=== PATIENT | female | born 1945 | race Caucasian/White ===

== ENCOUNTER 2021-03-30 14:21 | Outpatient (REF) | payer MEDICARE, MEDICAID, SELFPAY ==
--- NOTE | ~2021-03-30 | FL_ITS ---
EXAMINATION: X-RAY MODIFIED BARIUM SWALLOW CLINICAL INFORMATION: Dysphagia COMPARISON: None TECHNIQUE: Modified barium study FL/FL barium swallow modified FINDINGS/IMPRESSION: Fluoroscopy provided for modified barium swallow study performed by the speech pathologist. There is aspiration noted when the patient swallowed thin liquid. See speech pathology report for further details. FLUOROSCOPY TIME: 2.4 minutes DOSE AREA PRODUCT: 8.0 uGy-m2 (microgray-meter squared)
--- NOTE | 2021-03-30 17:10 | MHC.SLORD ---
Speech Language Pathology Order Status: MBSS completed this date. Evidence of aspiration with honey thick liquid. No aspiration or penetration with pureed solid. Recommend consult with G.I./Nutrition to determine candidacy for G-tube, with partial PO pureed solids (NDD1)/pudding thick liquids. RETAIL VISUAL MERCHANDISER called and spoke with RN from unit where patient resides at [facility]. RETAIL VISUAL MERCHANDISER notified RN of these results and recommendations. Report to be faxed to [facility].
--- NOTE | 2021-03-31 14:40 | MHC.SL.IMP ---
Date of Plan of Treatment: 03/30/21 Onset of Symptoms/Illness: 03/30/21 Date Treatment Started: 03/30/21 Admitting Diagnosis: Primary (admitting) Diagnosis: Paranoid schizophrenia Comorbidities: Oropharyngeal phase dysphagia Benign prostatic hyperplasia with lower urinary tract symptoms Unspecified AFIB Primary osteoarthritis GERD without esophagitis Dysarthria and anarthria Hypothyroidism Atherosclerotic heart disease of [place] coronary artery without angina pectoris Bradycardia Other disorders of plasma-protein metabolism Retention of urine Tobacco use Disturbances of salivary secretion Nonexudative age-related macular degeneration Unspecified glaucoma Mixed hyperlipidemia Vitamin D deficiency Other pancytopenia Personal history of sex reassignment Personal history of transient ischemic attack (TIA) and cerebral infarction without residual deficits Functional urinary incontinence Allergic rhinitis Constipation Type 2 diabetes mellitus without complications Other migraine not intractable without status migrainosus Essential hypertension Angina pectoris CVA 2012 Primary Speech & Language Diagnosis: R13.12 Oropharyngeal Phase Dysphagia Secondary Speech & Language Diagnosis: R41.841 Cognitive communication disorder Reason for Today's Visit: 81697 Modified Barium Swallow Study Pre-evaluation Dietary Consistencies: Pureed (NDD1) Pre-evaluation Liquid Consistency: Honey Thick Pre-evaluation Medication Administration: Crushed with Puree Medical History: Modified Barium Swallow Study Fluoroscopic Evaluation of Swallowing Function CPT Code 09242 Evaluation Year: 2020 Reason for Study: Patient displays overt s/s of aspiration. Referring Physician: Kandy Sarmiento MD Evaluating Clinician: Heather Delatorre M.A., CCC-FOOD SAFETY FIELD SPECIALIST Study Number: 1 Patient Name: Renea Polanco Status: Outpatient, Wheelchair Age: 75 Gender: Female MEDICAL HISTORY: Primary (admitting) Diagnosis: Paranoid schizophrenia Comorbidities: Oropharyngeal phase dysphagia Benign prostatic hyperplasia with lower urinary tract symptoms Unspecified AFIB Primary osteoarthritis GERD without esophagitis Dysarthria and anarthria Hypothyroidism Atherosclerotic heart disease of [place] coronary artery without angina pectoris Bradycardia Other disorders of plasma-protein metabolism Retention of urine Tobacco use Disturbances of salivary secretion Nonexudative age-related macular degeneration Unspecified glaucoma Mixed hyperlipidemia Vitamin D deficiency Other pancytopenia Personal history of sex reassignment Personal history of transient ischemic attack (TIA) and cerebral infarction without residual deficits Functional urinary incontinence Allergic rhinitis Constipation Type 2 diabetes mellitus without complications Other migraine not intractable without status migrainosus Essential hypertension Angina pectoris CVA 2012 Current (pre-evaluation) Intake/Diet: Route: PO Diet Grade: Puree Liquid Consistencies: Honey as reported per staff; [place] per documentation from [facility] Pre-Study Functional Oral Intake Scale (FOIS): 5- Total oral intake of multiple consistencies requiring special preparation Pain: None reported at time of study SUBJECTIVE: Patient is a 75 year old transgendered female who comes from [facility], where she is a snf care resident. Patient arrived in a wheelchair, accompanied by a staff member from [facility]. Per staff member, patient has significant difficulty swallowing. Staff member describes coughing on solids and liquids. Onset of dysphagia is unknown to staff member. Patient has extensive medical history, which includes CVA in 2013, paranoid schizophrenia, and severe oral phase dysphagia with known silent aspiration. Patient is currently on pureed solids and nectar thick liquids per paper documentation from [facility]. Staff member who had accompanied patient to this exam reported patient?s diet textures as pureed solids and honey thick liquids. Kandy Sarmiento MD is her attending provider. Oral Motor Exam Oral-Facial Teeth Characteristics: Edentulous Oral-Facial Teeth Miscellaneous Observation: Patient did not follow commands for oral [facility] exam. Tongue Size: Normal Food and Liquid Trials: Oral Impairment: Lip Closure: 4=Escape progressing to mid-chin. Oral Impairment: Tongue Control During Bolus Hold: 3=Posterior escape of greater than half of bolus Oral Impairment: Bolus Preparation/Mastication: Did not test Oral Impairment: Bolus Transport/Lingual Motion: 3=Repetitive/disorganized tongue motion Oral Impairment: Oral Residue: 2=Residue collection on oral structures Oral Impairment:Initiation of Pharyngeal Swallow: 3=Bolus head in pyriforms Pharyngeal Impairment: Soft Palate Elevation: 0=No bolus between soft palate (SP)/pharyngeal wall (PW) Pharyngeal Impairment: Laryngeal Elevation: 2=Minimal superior movement of thyroid cartilage (see description) Pharyngeal Impairment: Anterior Hyoid Excursion: 2=No anterior movement Pharyngeal Impairment: Epiglottic Movement: 1=Partial inversion Pharyngeal Impairment: Laryngeal Vestibular Closure:: 1=Incomplete: narrow column air/contrast in laryngeal vestibule Pharyngeal Impairment: Pharyngeal Stripping Wave: 2=Absent Pharyngeal Impairment: Pharyngeal Contraction: Did not test Pharyngeal Impairment: Pharyngoesophageal Segment Openin=Partial distention/partial duration: partial obstruction of flow Pharyngeal Impairment: Tongue Base (TB) Retraction: 3=Wide column of contrast/air between TB and posterior PW Pharyngeal Impairment: Pharyngeal Residue: 2=Collection of residue within or on pharyngeal structures Pharyngeal Impairment: Esophageal Clearance Upright Position: Did not test Impressions and Recommendations Clinical Observations: OBJECTIVE: Time-out: performed at 02:45 Evaluation Start: 02:30; Stop: 02:40 Patient Positioning: Seated 70-90 degrees Viewing Planes: LATERAL ONLY Contrast: MBSImP? Standardized Protocol using commercially prepared, standardized Barium viscosities, including: Varibar? THIN HONEY (40% w/v, <800-1800 cps) MBSImP ID: [id number] Results: Lip closure for intraoral bolus containment resulted in bolus escape beyond mid-chin. Tongue control during bolus hold allowed posterior escape of greater than half of the bolus. Bolus preparation and mastication received the highest impairment score; solid not given due to patient safety concerns related to oral impairment. Bolus transport/lingual motion was with repetitive/disorganized motion of the tongue. Oral residue was a collection on oral structures. Initiation of the pharyngeal swallow occurred when the bolus head was in the pyriform sinuses. Soft palate elevation resulted in no bolus between the soft palate and the pharyngeal wall. Laryngeal elevation was incomplete, as indicated through minimal superior movement of the thyroid cartilage with minimal approximation of the arytenoids to the epiglottic petiole. Anterior hyoid excursion demonstrated no movement. Epiglottic movement resulted in partial inversion. Laryngeal vestibular closure was incomplete, with a narrow column of air/contrast noted within the laryngeal vestibule at the height of the swallow. Pharyngeal stripping wave was absent. Pharyngeal contraction could not be determined due to logistical reasons not related to physiologic impairment. Pharyngoesophageal segment opening demonstrated partial distension/partial duration, with partial obstruction of bolus flow. Tongue base retraction allowed a wide column of contrast or air between the retracted tongue base and the posterior pharyngeal wall. Pharyngeal residue was a collection of residue within or on pharyngeal structures. Esophageal clearance in the upright position could not be assessed due to logistical reasons not related to physiologic impairment. Oral Impairment Score: 18 Pharyngeal Impairment Score: 14 (absence of score, component 13) Esophageal Impairment Score: --- (absence of score, component 17) Laryngeal Penetration and Aspiration: Aspiration was observed in today's study. Honey-thick Contrast entered the airway, passed below the vocal folds, and was not ejected from the trachea despite effort. Honey-thick Contrast entered the airway, passed below the vocal folds, and no effort was made to eject. ASSESSMENT: Clinician Assessment: This exam was conducted by a multidisciplinary team, which included radiologist, licensed chemical spray technician, speech-language pathologist, and speech-language pathology student liaison officer clinician. Patient was seated at optimal 90 degree position in chair for lateral view only. Patient was fed with 1:1 assistance. She trialed the following liquid and solid consistencies: -teaspoon sip honey thick liquid -pureed solid (mixture applesauce with barium paste) Patient displayed PROFOUND oropharyngeal phase dysphagia, characterized by significant impairments in the oral phase and pharyngeal phase: ORAL PHASE: -Significantly weak lip closure, resulting in anterior escape of bolus progressing beyond mid-chin. Patient exhibited difficulty forming and managing a bolus. -Premature posterior escape of greater than 50% of bolus prior to initiation of pharyngeal swallow trigger. Both solid and liquid escaped posteriorly and collected in valleculae and pyriforms prior to swallow trigger. -Patient was given small bites of applesauce. More advanced solids were withheld for patient safety due to patient?s edentulous state, significant impairments in oral phase, and inability to follow directions. -Repetitive and disorganized posterior tongue movement/ tongue pumping -Mild to moderate residue on tongue and on floor of mouth with honey thick liquid and pureed solid -Delayed pharyngeal swallow trigger when bolus head reached pyriform sinuses PHARYNGEAL PHASE: -No bolus between soft palate and pharyngeal wall -Minimal laryngeal elevation with no anterior hyoid movement and partial epiglottic inversion. -Incomplete laryngeal vestibular closure resulting in aspiration -Absent pharyngeal stripping wave, contributing to pharyngeal retention -Partial distention/ partial duration/partial obstruction of flow through pharyngoesophageal segment opening -Reduced tongue base retraction -Moderate pharyngeal retention Patient was given teaspoon sip of honey thick liquid. Evidence of silent aspiration during the swallow. Contrast entered the airway and passed below the vocal folds with no effort made to eject material. Moderate retention in the valleculae and pyriform sinuses with honey thick liquid. Double swallow reduced pharyngeal retention, but with aspiration on residual after the swallow. Patient demonstrated spontaneous cough, which was not effective in clearing material from airway. Patient was given teaspoon bites of pureed solid. No evidence of aspiration or penetration. Continue to note moderate residue in the valleculae and pyriform sinuses with pureed solids. Patient leaned her head forward during the swallow. This incidental chin tuck posture resulted in more effective pharyngeal clearance. The following compensatory strategies have not been used until today's study, but when employed, improved swallowing function: Chin Tuck decreased Pharyngeal Residue The following compensatory strategies appear to have had a negative impact on swallowing function: Honey-thick Liquid increased Aspiration Liquid Intake Recommendation: Pudding Thick Liquid Intake Strategies: Small Sips No Straws Liquids by Teaspoon Only Dietary Recommendations: Pureed (NDD1) Medication Administration: Crushed with Puree Compensatory Strategies Recommended: Sitting Upright (90 deg) Chin Tuck Double Swallow No Straw Liquids from Spoon Small Bites and Sips Rate of Ingestion Change Oral Check Supervision during eating and or drinking: Total Assistance Recommended Treatments: Compens. Strategy Educat. Recommendation for Speech Therapy: Speech Therapy through [facility] Text Comment: Frequency/Duration: Daily M-F Date Range for Service Requested: Timeline to reassess: PLAN: Intake Recommendations: Route: Partial PO/Partial Alternate Diet Grade: Puree Liquid Consistencies: No Liquids Post-Study Functional Oral Intake Scale (FOIS): 2- dependent with minimal/inconsistent oral intake Patient demonstrates profound oropharyngeal phase dysphagia, characterized by premature posterior escape of bolus, tongue pumping behavior, delayed pharyngeal swallow trigger, minimal laryngeal elevation, and moderate pharyngeal retention. This exam revealed evidence of aspiration during the swallow and after the swallow with honey thick liquid. No evidence of aspiration or penetration with pureed solid. Moderate residue in the valleculae and pyriforms with both consistencies. Double swallow reduced some residue, and chin tuck posture was even more effective in clearing residue when trialing pureed solid. Recommend single consistency PUREED solid/ PUDDING THICK liquid with pills CRUSHED in PUREE. With single consistency, concern is for patient to receive adequate nutrition and hydration. Additionally patient is at high aspiration risk. For that reason, patient is recommended consultations with a fibre composite technician/retirement specialist and outside plant supervisor to determine if alternative means of nutrition is an appropriate option for this patient. Based on objective results of this exam, patient is recommended alternative means of nutrition if deemed appropriate for patient by medical team, with PARTIAL PO. Patient requires STRICT aspiration precautions: upright 90 degree position during PO intake and for at least 30 minutes afterwards, minimize distractions during PO intake, 1:1 assistance with PO intake, consistent cues for double swallow and chin tuck, small bites, ensure oral cavity is clear before presentation of more bites, close monitoring for any s/s of aspiration. Ultimate decision for nutritional intake is to be made by the patient, her caregiver/family, and her medical team with consideration of the totality of the patient, other concomitant conditions, and overall quality of life. With any decision made, recommend elevate head of bed at least 30 degrees to reduce risk of microaspiration and frequent oral care routine, 4 times daily at the very minimum and ideally before and after PO intake. Patient is recommended weekly speech therapy sessions for dysphagia treatment RE: further education and support for patient, patient?s family/caregivers, and LTC staff. Based on observations made during this exam, patient is not able to focus on structured speech therapy nor follow the complex directions for pharyngeal strengthening treatment. ? Suggested Referrals: The patient might benefit from a referral to: Gastroenterology Indication for Referral: to determine most appropriate means of nutrition Nutrition Services Indication for Referral: to determine most appropriate means of nutrition Therapy Recommendations: Therapy will be initiated Frequency per Week: 5 Number of Weeks: 3 Prognosis for Improvement:?The prognosis for the patient to meet nutritional needs by mouth is poor based on degree of impairment. Lapidarist Goals: ? The patient and/or family will participate in further education for swallowing goals. Short Term Goals: ? Guidelines - The patient will comply with/recall the following guidelines/strategies 100% of the time with maximum cuing: Bolus Volume Change, Rate of Ingestion Change, Chin Tuck, Additional Swallow(s) per Bolus. ? Education - The patient, family, caregiver, nurse, physician will verbalize/demonstrate understanding of the results of this evaluation, the above recommendations, and the swallowing guidelines. Clinician - Supplemental, Miscellaneous Communication: It is important to note MBSS objective studies are snapshots in time and Patient function might vary with factors such as time of day or concomitant medical conditions. For this reason, the final treatment plan for this patient should rest with their medical care team. Additional recommendations should be considered with the totality of the Patient in mind.? Thank for the opportunity to participate in the care of this patient. If you have any questions about the content of this report, please contact the [facility] at [facility].? Education: Education regarding findings from today's study and plans for therapy were provided to Family/caregiver only through Verbal Instruction. Understanding was expressed by the Family/caregiver only. Gold Stamper Clinician/Clinical Fellow: Yes: Gillian Barcenas Supervisory Statement: N/A Speech Language Pathologist: Heather Delatorre M.A., [facility]-FOOD SAFETY FIELD SPECIALIST
== END 2021-03-30 14:22 | disposition home or self-care (01) ==
LOC: HO.XRAY 14:21
PROVIDERS: Visit Provider Internal Medicine
DX: R13.10 Dysphagia, unspecified (principal)
CPT/HCPCS: 74230; 92611

== ENCOUNTER 2021-09-01 00:55 | Inpatient (IN) | payer MEDICARE, MEDICAID, SELFPAY ==
[2021-09-01] VITALS (15 sets, daily range): BP systolic 83–113; BP diastolic 40–67; PULSE 46–113; RESP 16–35; TEMP 36.9–37; O2SAT 91–100; BMI 18.8
--- NOTE | ~2021-09-01 | XR_ITS ---
EXAMINATION: XR CHEST CLINICAL INFORMATION: Possible aspiration COMPARISON: None TECHNIQUE: Frontal view of the chest was obtained. FINDINGS: Streaky opacities within left lower lobe. Mild diffuse bronchial wall thickening. No pleural effusion or pneumothorax. Normal heart size. Aorta is tortuous and atherosclerotic. XR/XR chest 1V IMPRESSION: Streaky opacities in the left lower lobe could represent infiltrate and/or aspiration. Diffuse mild bronchial thickening is seen with bronchitis.
--- NOTE | ~2021-09-01 | XR_ITS ---
EXAMINATION: XR CHEST CLINICAL INFORMATION: Pacer placement COMPARISON: 09/01/2021 TECHNIQUE: Frontal view of the chest was obtained. FINDINGS: Pacer wires are seen. One overlies the high right atrium. Another overlies the right ventricle. Some increased markings in the lungs may represent vascular congestion. Attention to follow-up. There is no pneumothorax or effusion seen here. Prominent gas pattern in the upper partially visualized abdomen. XR/XR chest 1V IMPRESSION: Pacer wires as described. No pneumothorax.
--- NOTE | ~2021-09-01 | FL_ITS ---
EXAMINATION: XR FLUOROSCOPY WITH IMAGES CLINICAL INFORMATION: Pacemaker placement. COMPARISON: Chest radiograph 01/07/2022 TECHNIQUE: Fluoroscopy performed by Dr. Toña Hernandez. Fluoroscopy time: 671.97 seconds DAP: 109.83 mGycm2 Images: 3 FINDINGS: A dual-lead pacemaker is placed. Please see Dr. Toña Hernandez's procedure note for details. FL/FL guidance in OR IMPRESSION: Fluoroscopy and spot films provided during pacemaker placement.
--- NOTE | ~2021-09-01 | CT_ITS ---
EXAMINATION CT CHEST, ABDOMEN AND PELVIS WITH CONTRAST CLINICAL INFORMATION: Shortness breath COMPARISON: None. TECHNIQUE: Multidetector volumetric CT imaging of the chest, abdomen and pelvis was obtained after the administration of 85 mL of intravenous Omnipaque 350 without immediate adverse reactions. Coronal and sagittal reformats were reviewed. This CT examination was performed using dose optimization techniques as appropriate, variously including the following: *Automated exposure control *Adjustment of mA and/or kV according to patient size (this includes techniques or standardized protocols for targeted exams where dose is matched to indication/reason for exam; i.e. extremities or head) *Use of iterative reconstruction technique DLP: 657 mGy-cm. FINDINGS: CHEST LUNGS/PLEURA: Diffuse bronchial wall thickening and scattered endobronchial secretions, most notably within the lower lobes bilaterally where there is associated peribronchial and patchy airspace opacities and tree-in-bud nodularity suggestive of aspiration bronchiolitis with pneumonitis. There is no pleural effusion. No pleural mass or thickening. MEDIASTINUM/EVITA: Cardiomegaly. Great vessels normal caliber. No mediastinal or hilar adenopathy CHEST WALL/AXILLA: Unremarkable. ABDOMEN/PELVIS HEPATOBILIARY: Liver normal in size, contour and morphology. No suspicious lesions. No intra or extrahepatic biliary dilation. Cholelithiasis. PANCREAS: Atrophic but otherwise unremarkable. SPLEEN: Unremarkable. ADRENAL GLANDS: Unremarkable. KIDNEYS, URETERS AND BLADDER: Duplex left renal collecting system at least proximal ureters. The extent of the ureteral duplication is not clear by CT. There is moderate hydronephrosis of the inferior moiety. Staghorn calculus present in the upper pole moiety measuring 2.6 cm. There is a 4 mm calculus within the lower pole moiety. Right kidney is atrophic and shows multifocal renal cortical scarring. Kidneys enhance fairly symmetrically. No definite ureteral calculi. Bladder unremarkable. GASTROINTESTINAL TRACT: No intestinal obstruction or inflammation. Moderate constipation. PELVIC VISCERA: Hysterectomy. No adnexal abnormalities. LYMPH NODES: No lymphadenopathy. PERITONEUM/BODY WALL: Small fluid within the pelvis. VASCULAR STRUCTURES: Aorta is atherosclerotic but normal caliber. Patent vascular structures. OSSEOUS STRUCTURES No acute or suspicious osseous abnormalities. CT/CT abdomen pelvis w con IMPRESSION: * Finding suggestive of aspiration bronchiolitis/pneumonitis within the dependent lower lobes bilaterally. * No definite acute findings within the abdomen or pelvis. * Duplex left kidney with staghorn calculus in the upper pole moiety and moderate hydronephrosis of the lower pole moiety. * Chronic right renal atrophy and multifocal renal cortical scarring. * Cholelithiasis. * Small fluid within the pelvis is nonspecific but abnormal, and can be seen in setting of locoregional and systemic sources of inflammation.
--- NOTE | 2021-09-01 01:01 | ECG_ITS ---
Test Reason : ASPIRATION Blood Pressure : / mmHG Vent. Rate : 059 BPM Atrial Rate : 000 BPM P-R Int : 000 ms QRS Dur : 074 ms QT Int : 492 ms P-R-T Axes : 000 032 084 degrees QTc Int : 487 ms Junctional rhythm Low voltage QRS ST & T wave abnormality, consider anterolateral ischemia Abnormal ECG No previous ECGs available Referred By: wGen Escobar Electronically Signed By:Hitesh Osman
--- NOTE | 2021-09-01 01:05 | ED.SOB ---
HPI - SOB/Dyspnea General Chief Complaint: Upper Respiratory Symptoms Stated Complaint: SOB Time Seen by Provider: 09/01/21 01:00 Source: EMS Mode of arrival: EMS Limitations: altered mental status History of Present Illness HPI Narrative: Patient comes to the emergency room from [facility]. Patient has been having a cough for several days. Today, they were giving her cough syrup, patient choked, aspirated, they used suction to try to remove the cough syrup from the airway. Per EMS, patient was unresponsive, patient is DNR DNI. CPAP was not an option since pt was unresponsive. Patient's oxygen saturation initially in the low 70s, oxygen saturation improved to 92% on 15 L. On arrival to the emergency room, patient opens her eyes, is nonverbal. Related Data Allergies Allergy/AdvReac Type Severity Reaction Status Date / Time Unable to Assess Allergy Unverified 09/01/21 01:00 Review of Systems Review of Systems: Yes Unobtainable due to mental condition PMFSH Past Medical History Medical History (Updated 09/01/21 @ 02:43 by Gwen Escobar MD) COPD (chronic obstructive pulmonary disease) Hypothyroidism Schizophrenia Transgender Type 2 diabetes mellitus Vascular dementia Social History Social History Advance Directives: No Advance Directives Information Provided: Yes Physical Exam Vital Signs: Vital Signs: Last Vital Signs Temp 98.6 F 09/01/21 01:16 Pulse 70 09/01/21 01:16 Resp 35 H 09/01/21 01:16 BP 83/40 L 09/01/21 01:16 Pulse Ox 100 09/01/21 01:50 BMI result Body Mass Index 18.8 Const: Other: Appearance: Very somnolent, arousable to voice, patient nonverbal Eyes: Pupils equal, round and reactive to light. ENT: Pharynx normal. Neck: Normal inspection. Neck supple. No lymph nodes noted. No crepitus CVS: Normal heart rate and rhythm. Pulses normal. Normal S1 and S2 Respiratory: Oxygen saturation 92 on 15 L, bilateral rales and crackles, no wheezing Abdomen: Soft and nontender. No rigidity. No distention. Skin: Skin warm and dry. Normal skin color. Normal skin turgor. Extremities: No lower extremity edema. Hand contracture bilaterally Neuro: Unable to participate in cranial nerve assessment Psych: calm Course Course Course Narrative: Initial blood pressure 83/40 with an incorrect blood pressure cuff. Patient's blood pressure systolic is 124. Patient does not have a fever, sepsis is not suspected at this time, 01:32 Initial low blood pressures were secondary to a big size cuff rather than the appropriate size Patient has IV access, but most of the labs have not been able to be drawn, Flonase currently in the room trying to get labs. Chest x-ray shows aspiration pneumonia. Patient has been given Zosyn and fluids. Patient is at a time on high-flow, 40 L at 40% O2. Patient tested negative for influenza and COVID Blood pressure 113 systolic, map 79. Due to patient's high oxygen demand, patient is to be admitted. Sign-out given to Dr. Choi MDM - SOB/Dyspnea Lab Data Result diagrams: 09/01/21 01:42 Labs: Lab Results 09/01/21 09/01/21 09/01/21 Range/Units 01:42 01:42 01:42 PT 13.3 H (9.9-13.0) SEC INR 1.2 H (0.9-1.1) Sodium 134 L (135-145) mmol/L Potassium 3.7 (3.3-5.1) mmol/L Chloride 102 (96-108) mmol/L Carbon Dioxide 22 (22-29) mmol/L Anion Gap 14 (12-20) BUN 12 (9-16) mg/dL Creatinine 0.80 (0.5-1.4) mg/dL Estim Creat Clear Calc 45.6 Estimated GFR > 60 Random Glucose 185 H (60-115) mg/dL Calcium 8.6 (8.4-10.2) mg/dL Total Bilirubin 0.5 (0.0-1.0) mg/dL Direct Bilirubin 0.2 (0.0-0.5) mg/dL AST 24 (5-31) U/L ALT 15 (0-31) U/L Alkaline Phosphatase 47 (39-117) U/L Total Protein 5.8 L (6.5-8.0) g/dL Albumin 3.2 L (3.5-5.0) g/dL COVID-19 (ROSY) (Negative) COVID-19 Clin Com Influenza Type A (SONIA) Negative (Negative) Influenza Type B (SONIA) Negative (Negative) Influenza A & B Note See Note 04/14/22 Range/Units 01:42 PT (9.9-13.0) SEC INR (0.9-1.1) Sodium (135-145) mmol/L Potassium (3.3-5.1) mmol/L Chloride (96-108) mmol/L Carbon Dioxide (22-29) mmol/L Anion Gap (12-20) BUN (9-16) mg/dL Creatinine (0.5-1.4) mg/dL Estim Creat Clear Calc Estimated GFR Random Glucose (60-115) mg/dL Calcium (8.4-10.2) mg/dL Total Bilirubin (0.0-1.0) mg/dL Direct Bilirubin (0.0-0.5) mg/dL AST (5-31) U/L ALT (0-31) U/L Alkaline Phosphatase (39-117) U/L Total Protein (6.5-8.0) g/dL Albumin (3.5-5.0) g/dL COVID-19 (ROSY) Negative (Negative) COVID-19 Clin Com See Note Influenza Type A (SONIA) (Negative) Influenza Type B (SONIA) (Negative) Influenza A & B Note Imaging Data Chest x-ray: Radiologist's impression: Streaky opacities within left lower lobe. Mild diffuse bronchial wall thickening. No pleural effusion or pneumothorax. Normal heart size. Aorta is tortuous and atherosclerotic. XR/XR chest 1V IMPRESSION: Streaky opacities in the left lower lobe could represent infiltrate and/or aspiration. Diffuse mild bronchial thickening is seen with bronchitis. Discharge Plan Discharge Clinical Impression: Aspiration pneumonia Patient Disposition: Admitted As Inpatient
[2021-09-01 02:06] LABS: Alanine Aminotransferase 15 U/L (0-31); Albumin Level 3.2 g/dL (3.5-5.0); Alkaline Phosphatase 47 U/L (39-117); Anion Gap 14 (12-20); Aspartate Amino Transferase 24 U/L (5-31); Bilirubin Direct 0.2 mg/dL (0.0-0.5); Bilirubin Total 0.5 mg/dL (0.0-1.0); Blood Urea Nitrogen 12 mg/dL (9-16); Calcium 8.6 mg/dL (8.4-10.2); Carbon Dioxide 22 mmol/L (22-29); Chloride 102 mmol/L (96-108); Creatinine Clr Calc Pharmacy 45.6; Estimated Glomerular Filt Rate > 60; Glucose Random 185 mg/dL (60-115); INTERNATIONAL NORM RATIO 1.2 (0.9-1.1); Potassium 3.7 mmol/L (3.3-5.1); Prothrombin Time 13.3 SEC (9.9-13.0); Sodium 134 mmol/L (135-145); Total Protein 5.8 g/dL (6.5-8.0)
[2021-09-01 02:13] LABS: COVID-19 Test Negative (Negative); IDNOW Serial# 16C4AD1C; Influenza A Negative (Negative); Influenza B2 Negative (Negative)
[2021-09-01] MEDS: Piperacillin Sodium/Tazobactam 3.375 GM in 0.9 % Sodium Chloride 50 ML IV (02:47)
[2021-09-01] MEDS: 0.9 % Sodium Chloride 1,000 ML 999 ML IVCONT (02:54)
[2021-09-01 02:55] LABS: Basophils Percent Auto 0.2 % (0-2); Eosinophils Percent Auto 0.5 % (0-4); Hematocrit 33.1 % (37.0-47.0); Hemoglobin 10.5 g/dl (12.0-16.0); Imm Gran Abs Auto 0.01 X10*3/uL (0.00-0.03); Imm Gran Pct Auto 0.2 % (0.0-0.4); Lymphocytes Absolute Auto 0.1 X10*3/uL (1.2-4.9); Lymphocytes Percent Auto 2.1 % (20-40); MANUAL DIFF FLAG SCAN; Mean Corpuscular HGB Conc 31.7 g/dl (31.0-35.0); Mean Corpuscular Hemoglobin 28.6 pg (27.0-33.0); Mean Corpuscular Volume 90.2 fL (80.0-98.0); Mean Platelet Volume 9.3 fL (9.4-12.3); Monocytes Absolute Auto 0.3 X10*3/uL (0.1-1.2); Monocytes Percent Auto 4.9 % (2-11); Neutrophils Absolute Auto 5.6 x10*3/uL (2.0-8.3); Neutrophils Percent Auto 92.1 % (45-73); Platelet Count 199 X10*3/uL (160-400); Red Blood Count 3.67 X10*6/uL (4.20-5.50); Red Cell Distribution Width 14.8 % (11.0-16.0); SCAN SMEAR FLAG 1; White Blood Count 6.1 X10*3/uL (4.8-10.8)
[2021-09-01 02:57] LABS: Venous Blood Gas Refer to POC result
[2021-09-01 02:58] LABS: VBG HCO3 25 mmol/L (22-26); VBG pCO2 44 mmHg; VBG pH 7.36 (7.32-7.43); VBG pO2 44 mmHg
[2021-09-01 03:06] LABS: Lactic Acid 1.4 mmol/L (0.5-2.0)
[2021-09-01 03:15] LABS: SLIDE REVIEW VERIFIED
[2021-09-01 03:19] LABS: Troponin-I High Sensitivity 733.8 ng/L (<3.5-17.0)
[2021-09-01 03:20] LABS: B Type Natriuretic Peptide 86 pg/mL (<100)
--- NOTE | 2021-09-01 07:52 | PHA.MEDREC ---
Pharmacy Consult ? Medication Reconciliation Pharmacy has completed the medication reconciliation. No remarkable issues. Marce Tamayo, AminaD
--- NOTE | 2021-09-01 07:59 | ECG_ITS ---
Test Reason : cp Blood Pressure : / mmHG Vent. Rate : 057 BPM Atrial Rate : 057 BPM P-R Int : 134 ms QRS Dur : 086 ms QT Int : 396 ms P-R-T Axes : 079 025 082 degrees QTc Int : 385 ms Sinus bradycardia Low voltage QRS Nonspecific T wave abnormality Abnormal ECG When compared with ECG of 01-SEP-2021 01:21, ST no longer depressed in Anterior leads T wave inversion no longer evident in Anterior leads QT has shortened Referred By: Gwen Escobar Electronically Signed By:Hitesh Osman
--- NOTE | 2021-09-01 09:32 | P.HPHOSP_ITS ---
History of Present Illness Date of Service: 09/01/21 Chief Complaint: Hypoxia 76-year-old female sent in from [facility] for acute hypoxic respiratory failure. Patient herself is minimally verbal and is a poor historian. History obtained from facility. Patient was noted to have increased cough on day of admission she has a p.r.n. O2 order, was up to 6 L and desatting to low 80s. In ED patient required high-flow oxygen. CT chest consistent with aspiration pneumonia. Patient was given Zosyn. EKG showed dynamic anterior lead ST depression with T-wave inversion, and troponin was 733. Patient denies any chest pain. Review of Systems Review of Systems: (patient poor historian and denyine all symptoms) Constitutional: Denies fever, denies Chills Eyes: denies blurry vision ENT: denies sore throat CVS: denies chest pain Respiratory: Denies dyspnea GI: no abdominal pain : denies dysuria MSK: denies neck pain Skin: denies rash Neuro: denies specific motor weakness Psych: denies suicidal ideation Endocrine: denies heat/cold intolerance Hematologic: denies easy bleeding Allergy: denies hives [facility] Medical History COPD (chronic obstructive pulmonary disease) Hypothyroidism Schizophrenia Transgender Type 2 diabetes mellitus Vascular dementia Pertinent family history: unable to obtain Social History (Updated 09/01/21 @ 09:36 by Alfred Madison MD) Unable to assess alcohol history related to: Unknown Patient Tobacco Use Status: Tobacco use Unknown Advance Directives: No Advance Directives Information Provided: Yes Meds Allergies Allergy/AdvReac Type Severity Reaction Status Date / Time Unable to Assess Allergy Unverified 09/01/21 01:00 Active Medications: Current Medications Acetaminophen (Acetaminophen 325 Mg Tablet) 650 mg PO Q6H PRN PRN Reason: Pain, Mild (Pain Scale 1-3) Bisacodyl (Bisacodyl 10 Mg Supp.Rect) 10 mg NE DAILY PRN PRN Reason: Constipation Enoxaparin Sodium (Enoxaparin Sodium 40 Mg/0.4 Ml Syringe) 40 mg SUBCUT Q24H [place] Finasteride (Finasteride 5 Mg Tablet) 5 mg PO DAILY [place] Guaifenesin (Guaifenesin 100 Mg/5 Ml Liquid) ml PO Q4H PRN PRN Reason: Cough Haloperidol (Haloperidol 0.5 Mg Tablet) 0.5 mg PO BID [facility] Ampicillin Sodium/Sulbactam (Sodium 1.5 gm/ Sodium Chloride) 100 mls @ 200 mls/hr IV Q8H [facility] Lactulose (Lactulose 20 Gm/30 Ml Solution) 20 gm PO DAILY [facility] Levothyroxine Sodium (Levothyroxine Sodium 50 Mcg Tablet) 50 mcg PO DAILY [facility] Lorazepam (Lorazepam 0.5 Mg Tablet) 0.5 mg PO TID PRN PRN Reason: Anxiety Magnesium Hydroxide (Milk Of Magnesia 30 Ml Oral.Susp) 30 ml PO DAILY PRN PRN Reason: Constipation Non-Formulary Medication (Morphine Concentrate) 5 mg PO Q6H [facility] Pharmacy Consult (Consult Rx Perform Med Rec) 1 each MISCELLANE ONCE PRN PRN Reason: Consult order Senna (Sennosides 8.6 Mg Tablet) 17.2 mg PO BID [facility] Tamsulosin HCl (Tamsulosin Hcl 0.4 Mg Capsule) 0.4 mg PO DAILY [facility] Ziprasidone (Ziprasidone 80 Mg Capsule) 80 mg PO BEDTIME [facility] Ziprasidone (Ziprasidone 60 Mg Capsule) 60 mg PO DAILY [facility] Home Medications Medication Instructions Recorded Confirmed Last Taken Type acetaminophen 325 mg tablet 650 mg PO Q4H PRN 09/01/21 09/01/21 Unknown History acetaminophen 650 mg rectal 650 mg NE Q4H PRN 09/01/21 09/01/21 Unknown History suppository bisacodyl 10 mg rectal suppository 10 mg NE DAILY PRN 09/01/21 09/01/21 Unknown History finasteride 5 mg tablet 1 tab PO DAILY 09/01/21 09/01/21 08/31/21 History guaifenesin 100 mg/5 mL oral liquid 200 mg PO Q4H PRN 09/01/21 09/01/21 Unknown History haloperidol 0.5 mg tablet 1 tab PO BID 09/01/21 09/01/21 08/31/21 History lactulose 10 gram/15 mL oral 30 ml PO DAILY 09/01/21 09/01/21 08/31/21 History solution (Enulose) levothyroxine 50 mcg tablet 1 tab PO DAILY 09/01/21 09/01/21 08/31/21 History lorazepam 0.5 mg tablet 1 tab PO TID PRN 09/01/21 09/01/21 08/31/21 History magnesium hydroxide 400 mg/5 mL 30 ml PO DAILY PRN 09/01/21 09/01/21 Unknown History oral suspension (Milk of Magnesia) morphine concentrate 100 mg/5 mL 5 mg PO Q6H 09/01/21 09/01/21 08/31/21 History (20 mg/mL) oral solution sennosides 8.6 mg tablet (senna) 17.2 mg PO BID 09/01/21 09/01/21 08/31/21 History tamsulosin 0.4 mg capsule 1 cap PO DAILY 09/01/21 09/01/21 08/31/21 History ziprasidone HCl 60 mg capsule 1 cap PO DAILY 09/01/21 09/01/21 08/31/21 History ziprasidone HCl 80 mg capsule 1 cap PO BEDTIME 09/01/21 09/01/21 08/31/21 History Physical Exam Vital Signs and Narrative: Vital Signs: Last Vital Signs Temp 98.6 F 09/01/21 01:16 Pulse 49 L 09/01/21 06:27 Resp 18 09/01/21 08:07 BP 113/57 L 09/01/21 04:51 Pulse Ox 98 09/01/21 06:27 BMI result Body Mass Index 18.8 General: lethargic, frail, ill appearing, but no acute distress HEENT: atraumatic, high flow in place Neck: normal to visual inspection CVS: S1, S2, RRR Resp: rhonchi bilateral Chest: non tender GI: soft, non tender, non distended : no CVA tenderness Skin: no rashes Extremities: no edema Neuro: Oriented to name only, minimally verbal Psych: impaired insight Results Labs CBC and Chem 7: 09/01/21 02:48 09/01/21 01:42 Labs: Laboratory Results - last 24 hr 09/01/21 09/01/21 09/01/21 01:42 01:42 01:42 MCV MCH MCHC RDW Plt Count MPV Immature Gran % (Auto) Neut % (Auto) Lymph % (Auto) [place] % (Auto) Eos % (Auto) Baso % (Auto) Lymph # (Auto) [place] # (Auto) Eos # (Auto) Baso # (Auto) Abs Immat Gran (auto) Absolute Neuts (auto) Absolute Nucleated RBC Nucleated RBC % (auto) Smear Tech's Comments PT 13.3 H INR 1.2 H VBG pH VBG pCO2 VBG pO2 VBG HCO3 VBG O2 Saturation VBG Base Excess Anion Gap 14 Estim Creat Clear Calc 45.6 Estimated GFR > 60 Random Glucose 185 H Lactic Acid Calcium 8.6 Total Bilirubin 0.5 Direct Bilirubin 0.2 AST 24 ALT 15 Alkaline Phosphatase 47 Troponin I High Sens B-Natriuretic Peptide Total Protein 5.8 L Albumin 3.2 L COVID-19 (ROSY) COVID-19 Clin Com Influenza Type A (SONIA) Negative Influenza Type B (SONIA) Negative Influenza A & B Note See Note 09/01/21 09/01/21 09/01/21 01:42 02:48 02:48 MCV 90.2 MCH 28.6 MCHC 31.7 RDW 14.8 Plt Count 199 MPV 9.3 L Immature Gran % (Auto) 0.2 Neut % (Auto) 92.1 H Lymph % (Auto) 2.1 L [place] % (Auto) 4.9 Eos % (Auto) 0.5 Baso % (Auto) 0.2 Lymph # (Auto) 0.1 L [place] # (Auto) 0.3 Eos # (Auto) 0.0 Baso # (Auto) 0.0 Abs Immat Gran (auto) 0.01 Absolute Neuts (auto) 5.6 Absolute Nucleated RBC 0.000 Nucleated RBC % (auto) 0.0 Smear Tech's Comments VERIFIED PT INR VBG pH VBG pCO2 VBG pO2 VBG HCO3 VBG O2 Saturation VBG Base Excess Anion Gap Estim Creat Clear Calc Estimated GFR Random Glucose Lactic Acid 1.4 Calcium Total Bilirubin Direct Bilirubin AST ALT Alkaline Phosphatase Troponin I High Sens B-Natriuretic Peptide Total Protein Albumin COVID-19 (ROSY) Negative COVID-19 Clin Com See Note Influenza Type A (SONIA) Influenza Type B (SONIA) Influenza A & B Note 09/01/21 09/01/21 02:48 02:51 MCV MCH MCHC RDW Plt Count MPV Immature Gran % (Auto) Neut % (Auto) Lymph % (Auto) [place] % (Auto) Eos % (Auto) Baso % (Auto) Lymph # (Auto) [place] # (Auto) Eos # (Auto) Baso # (Auto) Abs Immat Gran (auto) Absolute Neuts (auto) Absolute Nucleated RBC Nucleated RBC % (auto) Smear Tech's Comments PT INR VBG pH 7.36 VBG pCO2 44 VBG pO2 44 VBG HCO3 25 VBG O2 Saturation 69.0 VBG Base Excess 0.0 Anion Gap Estim Creat Clear Calc Estimated GFR Random Glucose Lactic Acid Calcium Total Bilirubin Direct Bilirubin AST ALT Alkaline Phosphatase Troponin I High Sens 733.8 H* B-Natriuretic Peptide 86 Total Protein Albumin COVID-19 (ROSY) COVID-19 Clin Com Influenza Type A (SONIA) Influenza Type B (SONIA) Influenza A & B Note Imaging Radiologist's Impressions: Impressions Chest X-Ray 09/01/21 02:19 IMPRESSION: Streaky opacities in the left lower lobe could represent infiltrate and/or aspiration. Diffuse mild bronchial thickening is seen with bronchitis. Abdomen/Pelvis CT 09/01/21 05:45 IMPRESSION: * Finding suggestive of aspiration bronchiolitis/pneumonitis within the dependent lower lobes bilaterally. * No definite acute findings within the abdomen or pelvis. * Duplex left kidney with staghorn calculus in the upper pole moiety and moderate hydronephrosis of the lower pole moiety. * Chronic right renal atrophy and multifocal renal cortical scarring. * Cholelithiasis. * Small fluid within the pelvis is nonspecific but abnormal, and can be seen in setting of locoregional and systemic sources of inflammation. Chest CT 09/01/21 05:45 IMPRESSION: * Finding suggestive of aspiration bronchiolitis/pneumonitis within the dependent lower lobes bilaterally. * No definite acute findings within the abdomen or pelvis. * Duplex left kidney with staghorn calculus in the upper pole moiety and moderate hydronephrosis of the lower pole moiety. * Chronic right renal atrophy and multifocal renal cortical scarring. * Cholelithiasis. * Small fluid within the pelvis is nonspecific but abnormal, and can be seen in setting of locoregional and systemic sources of inflammation. Assessment and Plan (1) Aspiration pneumonia: Status: Acute Plan 76F presented with hypoxia and nstemi Acute hypoxic respiratory failure secondary to aspiration pneumonia no evidence of sepsis IV Zosyn, wean O2 as tolerated, NPO for speech eval NSTEMI due to above follow-up repeat troponin, echo, cardio COPD stable hypothyroid synthroid schizophrenia and vascular dementia haldol, ziprasidone ?DM not on meds, check a1c dvt prophylaxis - lovenox molst - DNR/DNI, okay for niv patient with significant hypoxia requiring high flow oxygen, complicated by NSTEMI likely to require atleast 2 midnights in hospital. Quality Stroke Does the patient have a stroke diagnosis?: No VTE Prior VTE?: No VTE Risk Level:: Medical - moderate - high VTE Device Contraindication: Treatment Not Indicated VTE Drug Contraindication: N/A - Med Ordered
--- NOTE | 2021-09-01 09:51 | PC.NURSE ---
Pt titrated to nasal cannula, 3lpm, sat 100%. Speech eval order placed and to bedside for assessment.
[2021-09-01] MEDS: Ampicillin Sodium/Sulbactam Na 1.5 GM in 0.9 % Sodium Chloride 100 ML IV ×2 (10:27→18:26)
[2021-09-01] MEDS: Enoxaparin Sodium 40 MG/0.4 ML SYRINGE SUBCUT (10:28)
--- NOTE | 2021-09-01 10:29 | PC.NURSE ---
Patient titrated down to 2 LPM of O2 via NC. Incontinence skin care provided-no open areas noted.
--- NOTE | 2021-09-01 10:33 | PC.NURSE ---
Morphine concentrate non formulary, Dr Madison aware and will put PRN morphine order
[2021-09-01 10:47] LABS: Estimated Average Glucose 103 mg/dL; Hemoglobin A1c % 5.2 %
--- NOTE | 2021-09-01 11:18 | PM.CNCAR ---
History of Present Illness History of Present Illness Date of Service: 09/01/21 Requesting physician: Alfred Madison Chief complaint: nstemi, asp pneumonia Narrative: 76-year-old female who is presenting for acute hypoxic respiratory failure. She was noted to have precordial T-wave inversions on the EKG and her high sensitivity troponin levels were elevated. CT scan of the chest has shown aspiration pneumonia and she has been started on antibiotics. She is on nasal cannula right now. She has background of schizophrenia. Reportedly she is poor historian and has some communication issues too. Overall history was quite limited from her because it was very hard to understand her. Data questioning like chest pain and shortness of breath she denied. Labs and EKGs reviewed. [facility] Past Medical History Medical History (Updated 09/01/21 @ 12:50 by Hitesh Osman MD) COPD (chronic obstructive pulmonary disease) Hypothyroidism Schizophrenia Transgender Vascular dementia Social History Social History (Updated 09/01/21 @ 09:36 by Alfred Madison MD) Unable to assess alcohol history related to: Unknown Patient Tobacco Use Status: Tobacco use Unknown Advance Directives: No Advance Directives Information Provided: Yes Meds Allergies Allergy/AdvReac Type Severity Reaction Status Date / Time Unable to Assess Allergy Unverified 09/01/21 01:00 Active Medications: Current Medications Acetaminophen (Acetaminophen 325 Mg Tablet) 650 mg PO Q6H PRN PRN Reason: Pain, Mild (Pain Scale 1-3) Aspirin (Aspirin 81 Mg Tab.Chew) 81 mg PO DAILY [facility] Atorvastatin Calcium (Atorvastatin Calcium 80 Mg Tablet) 80 mg PO BEDTIME [facility] Bisacodyl (Bisacodyl 10 Mg Supp.Rect) 10 mg VA DAILY PRN PRN Reason: Constipation Enoxaparin Sodium (Enoxaparin Sodium 60 Mg/0.6 Ml Syringe) 50 mg SUBCUT Q12H [facility] Last Admin: 09/01/21 11:05 Dose: Not Given Documented by: Finasteride (Finasteride 5 Mg Tablet) 5 mg PO DAILY [facility] Guaifenesin (Guaifenesin 100 Mg/5 Ml Liquid) 10 ml PO Q4H PRN PRN Reason: Cough Haloperidol (Haloperidol 0.5 Mg Tablet) 0.5 mg PO BID [facility] Ampicillin Sodium/Sulbactam (Sodium 1.5 gm/ Sodium Chloride) 100 mls @ 200 mls/hr IV Q6H [facility] Last Admin: 09/01/21 10:27 Dose: 200 mls/hr Documented by: Lactulose (Lactulose 20 Gm/30 Ml Solution) 20 gm PO DAILY [facility] Levothyroxine Sodium (Levothyroxine Sodium 50 Mcg Tablet) 50 mcg PO DAILY@0630 [facility] Lorazepam (Lorazepam 0.5 Mg Tablet) 0.5 mg PO TID PRN PRN Reason: Anxiety Magnesium Hydroxide (Milk Of Magnesia 30 Ml Oral.Susp) 30 ml PO DAILY PRN PRN Reason: Constipation Morphine Sulfate (Morphine Sulfate Oral Charlee 10 Mg/5 Ml Solution) 5 mg PO Q6H [facility] Last Admin: 09/01/21 10:31 Dose: Not Given Documented by: Pharmacy Consult (Consult Rx Perform Med Rec) 1 each MISCELLANE ONCE PRN PRN Reason: Consult order Senna (Sennosides 8.6 Mg Tablet) 17.2 mg PO BID [facility] Tamsulosin HCl (Tamsulosin Hcl 0.4 Mg Capsule) 0.4 mg PO DAILY [facility] Ziprasidone (Ziprasidone 80 Mg Capsule) 80 mg PO BEDTIME [facility] Ziprasidone (Ziprasidone 60 Mg Capsule) 60 mg PO DAILY [facility] Home Medications Medication Instructions Recorded Confirmed Last Taken Type acetaminophen 325 mg tablet 650 mg PO Q4H PRN 09/01/21 09/01/21 Unknown History acetaminophen 650 mg rectal 650 mg VA Q4H PRN 09/01/21 09/01/21 Unknown History suppository bisacodyl 10 mg rectal suppository 10 mg VA DAILY PRN 09/01/21 09/01/21 Unknown History finasteride 5 mg tablet 1 tab PO DAILY 09/01/21 09/01/21 08/31/21 History guaifenesin 100 mg/5 mL oral liquid 200 mg PO Q4H PRN 09/01/21 09/01/21 Unknown History haloperidol 0.5 mg tablet 1 tab PO BID 09/01/21 09/01/21 08/31/21 History lactulose 10 gram/15 mL oral 30 ml PO DAILY 09/01/21 09/01/21 08/31/21 History solution (Enulose) levothyroxine 50 mcg tablet 1 tab PO DAILY 09/01/21 09/01/21 08/31/21 History lorazepam 0.5 mg tablet 1 tab PO TID PRN 04/09/01/21 08/31/21 History magnesium hydroxide 400 mg/5 mL 30 ml PO DAILY PRN 09/01/21 09/01/21 Unknown History oral suspension (Milk of Magnesia) morphine concentrate 100 mg/5 mL 5 mg PO Q6H 09/01/21 09/01/21 08/31/21 History (20 mg/mL) oral solution sennosides 8.6 mg tablet (senna) 17.2 mg PO BID 09/01/21 09/01/21 08/31/21 History tamsulosin 0.4 mg capsule 1 cap PO DAILY 09/01/21 09/01/21 08/31/21 History ziprasidone HCl 60 mg capsule 1 cap PO DAILY 09/01/21 09/01/21 08/31/21 History ziprasidone HCl 80 mg capsule 1 cap PO BEDTIME 09/01/21 09/01/21 08/31/21 History Physical Exam Vital Signs: Vital Signs: Last Vital Signs Temp 98.6 F 09/01/21 01:16 Pulse 56 09/01/21 10:44 Resp 20 09/01/21 10:44 BP 112/67 09/01/21 10:44 Pulse Ox 98 09/01/21 10:44 BMI result Body Mass Index 18.8 Objective Labs and Meds Result diagrams: 09/01/21 02:48 09/01/21 01:42 Lab results: Laboratory Results - last 24 hr 09/01/21 09/01/21 09/01/21 01:42 01:42 01:42 WBC RBC Hgb Hct MCV MCH MCHC RDW Plt Count MPV Immature Gran % (Auto) Neut % (Auto) Lymph % (Auto) [place] % (Auto) Eos % (Auto) Baso % (Auto) Lymph # (Auto) [place] # (Auto) Eos # (Auto) Baso # (Auto) Abs Immat Gran (auto) Absolute Neuts (auto) Absolute Nucleated RBC Nucleated RBC % (auto) Smear Tech's Comments PT 13.3 H INR 1.2 H VBG pH VBG pCO2 VBG pO2 VBG HCO3 VBG O2 Saturation VBG Base Excess Sodium 134 L Potassium 3.7 Chloride 102 Carbon Dioxide 22 Anion Gap 14 BUN 12 Creatinine 0.80 Estim Creat Clear Calc 45.6 Estimated GFR > 60 Random Glucose 185 H Estimat Average Glucose Hemoglobin A1c % Lactic Acid Calcium 8.6 Total Bilirubin 0.5 Direct Bilirubin 0.2 AST 24 ALT 15 Alkaline Phosphatase 47 Troponin I High Sens B-Natriuretic Peptide Total Protein 5.8 L Albumin 3.2 L COVID-19 (ROSY) COVID-19 Clin Com Influenza Type A (SONIA) Negative Influenza Type B (SONIA) Negative Influenza A & B Note See Note 09/01/21 09/01/21 09/01/21 01:42 02:48 02:48 WBC 6.1 RBC 3.67 L Hgb 10.5 L Hct 33.1 L MCV 90.2 MCH 28.6 MCHC 31.7 RDW 14.8 Plt Count 199 MPV 9.3 L Immature Gran % (Auto) 0.2 Neut % (Auto) 92.1 H Lymph % (Auto) 2.1 L [place] % (Auto) 4.9 Eos % (Auto) 0.5 Baso % (Auto) 0.2 Lymph # (Auto) 0.1 L [place] # (Auto) 0.3 Eos # (Auto) 0.0 Baso # (Auto) 0.0 Abs Immat Gran (auto) 0.01 Absolute Neuts (auto) 5.6 Absolute Nucleated RBC 0.000 Nucleated RBC % (auto) 0.0 Smear Tech's Comments VERIFIED PT INR VBG pH VBG pCO2 VBG pO2 VBG HCO3 VBG O2 Saturation VBG Base Excess Sodium Potassium Chloride Carbon Dioxide Anion Gap BUN Creatinine Estim Creat Clear Calc Estimated GFR Random Glucose Estimat Average Glucose Hemoglobin A1c % Lactic Acid 1.4 Calcium Total Bilirubin Direct Bilirubin AST ALT Alkaline Phosphatase Troponin I High Sens B-Natriuretic Peptide Total Protein Albumin COVID-19 (ROSY) Negative COVID-19 Clin Com See Note Influenza Type A (SONIA) Influenza Type B ([facility]) Influenza A & B Note 09/01/21 09/01/21 09/01/21 02:48 02:48 02:51 WBC RBC Hgb Hct MCV MCH MCHC RDW Plt Count MPV Immature Gran % (Auto) Neut % (Auto) Lymph % (Auto) [place] % (Auto) Eos % (Auto) Baso % (Auto) Lymph # (Auto) [place] # (Auto) Eos # (Auto) Baso # (Auto) Abs Immat Gran (auto) Absolute Neuts (auto) Absolute Nucleated RBC Nucleated RBC % (auto) Smear Tech's Comments PT INR VBG pH 7.36 VBG pCO2 44 VBG pO2 44 VBG HCO3 25 VBG O2 Saturation 69.0 VBG Base Excess 0.0 Sodium Potassium Chloride Carbon Dioxide Anion Gap BUN Creatinine Estim Creat Clear Calc Estimated GFR Random Glucose Estimat Average Glucose 103 Hemoglobin A1c % 5.2 Lactic Acid Calcium Total Bilirubin Direct Bilirubin AST ALT Alkaline Phosphatase Troponin I High Sens 733.8 H* B-Natriuretic Peptide 86 Total Protein Albumin COVID-19 (ROSY) COVID-19 Clin Com Influenza Type A (SONIA) Influenza Type B ([facility]) Influenza A & B Note 09/01/21 10:04 WBC RBC Hgb Hct MCV MCH MCHC RDW Plt Count MPV Immature Gran % (Auto) Neut % (Auto) Lymph % (Auto) [place] % (Auto) Eos % (Auto) Baso % (Auto) Lymph # (Auto) [place] # (Auto) Eos # (Auto) Baso # (Auto) Abs Immat Gran (auto) Absolute Neuts (auto) Absolute Nucleated RBC Nucleated RBC % (auto) Smear Tech's Comments PT INR VBG pH VBG pCO2 VBG pO2 VBG HCO3 VBG O2 Saturation VBG Base Excess Sodium Potassium Chloride Carbon Dioxide Anion Gap BUN Creatinine Estim Creat Clear Calc Estimated GFR Random Glucose Estimat Average Glucose Hemoglobin A1c % Lactic Acid Calcium Total Bilirubin Direct Bilirubin AST ALT Alkaline Phosphatase Troponin I High Sens 1468.0 H* D B-Natriuretic Peptide Total Protein Albumin COVID-19 (ROSY) COVID-19 Clin Com Influenza Type A (SONIA) Influenza Type B ([facility]) Influenza A & B Note Imaging Radiologist's impression: Impressions Chest X-Ray 09/01/21 02:19 IMPRESSION: Streaky opacities in the left lower lobe could represent infiltrate and/or aspiration. Diffuse mild bronchial thickening is seen with bronchitis. Abdomen/Pelvis CT 09/01/21 05:45 IMPRESSION: * Finding suggestive of aspiration bronchiolitis/pneumonitis within the dependent lower lobes bilaterally. * No definite acute findings within the abdomen or pelvis. * Duplex left kidney with staghorn calculus in the upper pole moiety and moderate hydronephrosis of the lower pole moiety. * Chronic right renal atrophy and multifocal renal cortical scarring. * Cholelithiasis. * Small fluid within the pelvis is nonspecific but abnormal, and can be seen in setting of locoregional and systemic sources of inflammation. Chest CT 09/01/21 05:45 IMPRESSION: * Finding suggestive of aspiration bronchiolitis/pneumonitis within the dependent lower lobes bilaterally. * No definite acute findings within the abdomen or pelvis. * Duplex left kidney with staghorn calculus in the upper pole moiety and moderate hydronephrosis of the lower pole moiety. * Chronic right renal atrophy and multifocal renal cortical scarring. * Cholelithiasis. * Small fluid within the pelvis is nonspecific but abnormal, and can be seen in setting of locoregional and systemic sources of inflammation. Assessment and Plan (1) Aspiration pneumonia: Status: Acute (2) Acute respiratory failure: Status: Acute (3) Elevated troponin: Status: Acute Plan 76-year-old female who is presenting with acute hypoxic respiratory failure due to aspiration pneumonia. While she was hypoxic her EKG showed precordial T-wave inversions which have improved on subsequent EKGs. No history is possible from the patient due to schizophrenia and communication issues. Her biomarkers were abnormal and a high sensitivity troponin level of 733 and 1468. I think this is a type 2 event from hypoxia. I will recommend no heparin right now. I do think that baby aspirin should be given to the patient. Agree with checking echocardiogram to assess for any wall motion abnormality and right ventricular function. Sometime precordial T-wave inversions can be due to pulmonary embolism too. We will follow along with you. Thank you for allowing me to participate in the care of your patient. Please feel free to contact me if you have any questions. Procedures Date of Service Date of Service: 09/01/21
--- NOTE | 2021-09-01 11:28 | MHC.SL.SWA ---
Addendum entered and electronically signed by DAREN Solomon 09/01/21 12:34: After completion of documentation of BSE this MD Wendy was in contact w/HCP who declined NPO/Alternative Feeding recommendation, is aware of risk of high risk of aspiration, but wants PT to continue on PO of Puree (NDD1) and PUDDING THICK liquids, which was ordered by . Pt will need FULL ASSIST/SUPERVISION at all meals, w/close monitor for aspirations signs, including maintaining O2 at safe levels. Pt benefits from Chin tuck and double swallow on all presentations of PO, requires oral check before presenting additional food. Please assure that PT is alert and engaged in meal/med administration, and minimize distractions, including speaking while eating. LEAD PROGRAMMER will follow, re-assess to determine safety of additional FF Water Protocol to aid hydration. Original Note: Speech Pathologist Impression: Risk of Aspiration Due to: History of Pneumonia Poor PO Intake Reduced Cognition Liquid Consistency and Strategies for Safe Swallow: Liquid Intake Recommendation: NPO Liquid Intake Strategies: Solid Food Consistency: Dietary Recommendations: NPO Additional Modifications to Solid Foods: Pt has documented aspiration on all liquid consistencies re: MBSS study of 04/10. @ that time it was recommended Pt be considered for alternative method of feeding due to risk of aspiration. Pt continues at high risk for aspiration due to severe oralpharyngeal dysphagia & advanced dementia. Recommend NPO, consider alternative feeding/PEG placement w/HCP. Oral Medication Intake: NPO Please contact the pharmacy regarding appropriate crushable or liquid drug formulations that are available whenever modified delivery is recommended. Compensatory Strategies and Precautions to be Taken for Safe Swallow: Supervision While Eating and Drinking for Safe Swallow: Foods to Avoid: Swallowing Recommended Treatments: Recommendation for Speech: Comment: Pt was seen @ [facility] in March 2021 for MBSS. That study evidenced severe oralpharyngeal dysphagia, w/carissa aspiration documented on nectar thick liquid w/no evidence of protective cough. On puree consistencies there was no aspiration, however swallow evidenced a maladaptive oral phase (tongue pumping, premature anterior escape of bolus, oral residue after swallow) and impaired pharyngeal phase (Delayed swallow trigger, reduce laryngeal transit/elevation, residual in pharynx after swallow). Pt was deemed at high risk for aspiration, w/recommendation that alternate feeding method be considered, w/ PO puree solids, pudding thick liquids (e.g. no liquids) - w/concern re: lack of hydration on this regimen, ongoing risk of aspiration. BSE today is consistent w/previous MBSS findings: Highly maladaptive oral phase, significant delay of swallow w/reduced elevation on pudding thick liquids and puree. Additionally on study Pt neglected bolus after transit to pharynx, began speaking and needed repeated direct cuing to swallow. Due to severe oralpharyngeal dysphagia and that Pt has advanced dementia and becomes distracted easily while eating, recommend NPO. Recommend Medical team consider/investigate alternative feeding method for Pt, pending Guardian approval/quality of life considerations. These recommendation were discussed directly w/ MD and Nursing at time of evaluation, w/residential monitor notified by secure text. LEAD PROGRAMMER will follow re: determination of candidacy for Alternative Feeding, PO trials w/LEAD PROGRAMMER only. Pt should be provided w/regular oral care several times daily while Inpt/NPO. Frequency/Duration: Date Range for Service Req: Timeline to reassess: Frame Builder Clinican/Clinical Fellow: No Supervisory Statement: I have reviewed and agree with the student/clinical fellow's documentation: N/A Speech Language Pathologist: Sagrario Palacio M.A., CCC-LEAD PROGRAMMER
--- NOTE | 2021-09-01 14:00 | CA_ITS ---
Transthoracic Echocardiogram Patient (Last, First, Middle): Renea Polanco, Gender: Female Date of : 1945 Age: 76 Procedure Date: 09/01/2021 Procedure Type: Transthoracic Echocardiogram Location: ER Height: 160.02 cm Weight: 48.08 kg BSA: 1.48 m2 Heart Rate: bpm BP: 110 / 56 mmHg Live Truck Technician: EMILIA Referring MD: Alfred Madison MD Symptoms: nstemi Study Quality: Fair Conclusions: - Normal left ventricular size, thickness, systolic function, and wall motion. The visually estimated ejection fraction is between 55-60%. - Normal right ventricular cavity size and systolic function. - The left atrium is severely dilated. The right atrium is mildly dilated. Findings Left Ventricle Normal left ventricular size, thickness, systolic function, and wall motion. The visually estimated ejection fraction is between 55-60%. There is no evidence of regional wall motion abnormalities. Abnormal diastolic function is noted. Spectral Doppler is indicative of a pseudonormal filling pattern. E/E prime ratio is between 8 and 15 consistent with indeterminate filling pressures. Right Ventricle Normal right ventricular cavity size and systolic function. Atria The left atrium is severely dilated. The right atrium is mildly dilated. Aortic Valve The aortic valve structure and function is likely normal. There is no aortic valve stenosis. There is no aortic valve regurgitation. Mitral Valve The mitral valve appears normal. There is mild mitral valve regurgitation. There is no mitral valve stenosis. Pulmonic Valve The pulmonic valve is likely normal. Tricuspid Valve Normal tricuspid valve structure and function. There is trace tricuspid valve regurgitation. Normal right atrial pressure. There is no evidence of pulmonary hypertension. Great Vessels All visible segments of the aorta are normal in size. The visualized portions of the pulmonary artery and branches are normal. Venous The inferior vena cava is normal in size and collapses greater than 50% with inspiration. Pericardium/Pleural There is no evidence of pericardial effusion. Prior Study Comparison No prior study available for comparison. Measurements 2D Linear Measurements IVSd: 0.79 0.6-0.9/0.6-1.0 cm LVIDd: 4.69 3.9-5.3/4.2-5.9 cm LVIDd Index: 3.17 2.4-3.2/2.2-3.1 cm/m2 LVIDs: 3.31 2.0-3.6 cm LVPWd: 0.96 0.7-1.1 cm LA Diam: 3.10 2.7-3.8/3.0-4.0 cm LAIDs Index: 2.09 1.5-2.3 cm/m2 LV Mass: 170.74 67-162/88-224 g LV Mass Index: 115.37 43-95/49-115 g/m2 LVOT Diam: 2.10 3.0+(-)1.3 cm 2D Systolic Function EF 4C: 63.10 >55% EF 2C: 67.10 >55% EF BiP: 65.30 >55% Mitral Valve MV Pk E: 0.75 MV PK A: 0.74 MV Decel Time: 297.00 E/A: 1.00 E'Lateral: 9.79 E'Medial: 7.72 E/E' Med: 9.70 E/E' Lat: 7.60 PHT: 87.00 MVA PHT: 2.53 Decel Redwood: 2.51 Aortic Valve AoV Pk Lester: 1.41 AoV Mn Lester: 0.98 AoV VTI: 0.30 AoV Pk Grad: 8.00 Aov Mn Grad: 4.00 RAISA Cont.VTI: 2.09 LVOT LVOT Pk Lester: 1.24 LVOT Mn Lester: 0.83 LVOT VTI: 0.18 LVOT Pk Grad: 6.00 LVOT Mn Grad: 3.00 LVOT Diam: 2.10 LVOT Area: 3.46 Diastolic Function MV Pk E: 0.75 MV Pk A: 0.74 E/A: 1.00 E'Medial: 7.72 E/E' Med: 9.70 E' Laterial: 9.79 E/E' Lat: 7.60 Right Ventricle TAPSE (mm): 23.20 TVS' Lester: 20.50 Tricuspid Valve TR Pk Lester: 2.46 TR Pk Grad: 24.00 RA Press: 3.00 RVSP: 27.00 Great Vessels Aorta Sinus of Valsalva: 3.26 2.0-3.[address] Ridge: 2.55 1.7-3.4 cm Ao Asc: 3.40 2.1-3.4 cm Updated in Other Vendor System with Status of Final Hitesh Osman MD electronically signed on 09/03/2021 12:41:16 PM with status of Final
[2021-09-01] MEDS: Morphine Sulfate Oral Sol 10 MG/5 ML SOLUTION 5 MG PO (16:44)
[2021-09-01] MEDS: Sennosides 8.6 MG TABLET 17.2 MG PO (21:27)
[2021-09-01] MEDS: Ziprasidone 80 MG CAPSULE PO (21:27)
[2021-09-01] MEDS: Atorvastatin Calcium 80 MG TABLET PO (21:27)
[2021-09-01] MEDS: HaloperidoL 0.5 MG TABLET PO (21:28)
[2021-09-02] MEDS: Ampicillin Sodium/Sulbactam Na 1.5 GM in 0.9 % Sodium Chloride 100 ML IV ×5 (00:29→22:24)
[2021-09-02 03:19] VITALS: BP 73/44; PULSE 33; RESP 16; TEMP 36.1; O2SAT 94
[2021-09-02] MEDS: Morphine Sulfate Oral Sol 10 MG/5 ML SOLUTION 5 MG PO (06:09)
[2021-09-02] MEDS: Levothyroxine Sodium 50 MCG TABLET PO (06:13)
[2021-09-02 07:09] VITALS: BP 101/49; PULSE 58; RESP 20; TEMP 36.4; O2SAT 94
[2021-09-02 07:27] LABS: Hematocrit 31.3 % (37.0-47.0); Mean Corpuscular HGB Conc 31.9 g/dl (31.0-35.0); Mean Corpuscular Hemoglobin 28.9 pg (27.0-33.0); Mean Corpuscular Volume 90.5 fL (80.0-98.0); Mean Platelet Volume 9.9 fL (9.4-12.3); Platelet Count 194 X10*3/uL (160-400); Red Blood Count 3.46 X10*6/uL (4.20-5.50); Red Cell Distribution Width 15.1 % (11.0-16.0); White Blood Count 4.9 X10*3/uL (4.8-10.8)
[2021-09-02 07:47] LABS: Anion Gap 9 (12-20); Blood Urea Nitrogen 15 mg/dL (9-16); Calcium 8.5 mg/dL (8.4-10.2); Carbon Dioxide 28 mmol/L (22-29); Chloride 104 mmol/L (96-108); Creatinine Clr Calc Pharmacy 55.3; Estimated Glomerular Filt Rate > 60; Glucose Fasting 108 mg/dL (60-99); Potassium 4.1 mmol/L (3.3-5.1); Sodium 137 mmol/L (135-145)
--- NOTE | 2021-09-02 09:29 | MHC.CM.PN ---
Patient is mostly non verbal and a poor Historian; CM left a detailed message for Patient's only contact/Brother/Steve at [phone]. HOLLIE addressed IMM during this call and will mail original IMM to Steve once he returns CM call and provides CM with his address (copy has been placed on chart).Patient is a LTC Resident of [facility] and returning there appears to be the goal for dc. HOLLIE has initiated and will follow for dc planning.
--- NOTE | 2021-09-02 09:42 | P.PNIM_ITS ---
Subjective Subjective Date of Service: 09/02/21 Interval History: cc: hypoxia interval history: patient has denies complaints Cardiovascular Cardiovascular: Reports no additional cardiovascular complaints Respiratory Respiratory: Reports no additional respiratory complaints Physical Exam Vital Signs: Vital Signs: Last Vital Signs Temp 97.6 F 09/02/21 07:09 Pulse 58 09/02/21 07:09 Resp 20 09/02/21 07:09 BP 101/49 L 09/02/21 07:09 Pulse Ox 94 09/02/21 07:09 BMI result Body Mass Index 18.8 General: AO X 1, coughing, minimally verbal Resp: rhocnhi bilateral, no accessory muscles used CVS: S1,S2,RRR GI: soft, non tender, non distended Neuro: motor grossly intact, alert Psych: impaired insight Objective Data Active Medications Acetaminophen (Acetaminophen 325 Mg Tablet) 650 mg PO Q6H PRN PRN Reason: Pain, Mild (Pain Scale 1-3) Aspirin (Aspirin 81 Mg Tab.Chew) 81 mg PO DAILY [facility] Last Admin: 09/02/21 09:31 Dose: Not Given Documented by: LUCRETIA Non-Admin Reason: Patient Condition Contraindication Atorvastatin Calcium (Atorvastatin Calcium 80 Mg Tablet) 80 mg PO BEDTIME [facility] Last Admin: 09/01/21 21:27 Dose: 80 mg Documented by: RD Bisacodyl (Bisacodyl 10 Mg Supp.Rect) 10 mg WI DAILY PRN PRN Reason: Constipation Enoxaparin Sodium (Enoxaparin Sodium 40 Mg/0.4 Ml Syringe) 40 mg SUBCUT DAILY [facility] Finasteride (Finasteride 5 Mg Tablet) 5 mg PO DAILY [facility] Last Admin: 09/02/21 09:31 Dose: Not Given Documented by: LUCRETIA Non-Admin Reason: Patient Condition Contraindication Guaifenesin (Guaifenesin 100 Mg/5 Ml Liquid) 10 ml PO Q4H PRN PRN Reason: Cough Haloperidol (Haloperidol 0.5 Mg Tablet) 0.5 mg PO BID [facility] Last Admin: 09/02/21 09:31 Dose: Not Given Documented by: LUCRETIA Non-Admin Reason: Patient Condition Contraindication Ampicillin Sodium/Sulbactam (Sodium 1.5 gm/ Sodium Chloride) 100 mls @ 200 mls/hr IV Q6H [facility] Last Infusion: 09/02/21 07:16 Dose: 200 mls/hr Documented by: RD Lactulose (Lactulose 20 Gm/30 Ml Solution) 20 gm PO DAILY [facility] Last Admin: 09/02/21 09:31 Dose: Not Given Documented by: LUCRETIA Non-Admin Reason: Patient Condition Contraindication Levothyroxine Sodium (Levothyroxine Sodium 50 Mcg Tablet) 50 mcg PO DAILY@0630 [facility] Last Admin: 09/02/21 06:13 Dose: 50 mcg Documented by: RD Lorazepam (Lorazepam 0.5 Mg Tablet) 0.5 mg PO TID PRN PRN Reason: Anxiety Magnesium Hydroxide (Milk Of Magnesia 30 Ml Oral.Susp) 30 ml PO DAILY PRN PRN Reason: Constipation Morphine Sulfate (Morphine Sulfate Oral Charlee 10 Mg/5 Ml Solution) 5 mg PO Q6H [facility] Last Admin: 09/02/21 06:09 Dose: 5 mg Documented by: RD Pharmacy Consult (Consult Rx Perform Med Rec) 1 each MISCELLANE ONCE PRN PRN Reason: Consult order Senna (Sennosides 8.6 Mg Tablet) 17.2 mg PO BID [facility] Last Admin: 09/02/21 09:31 Dose: Not Given Documented by: LUCRETIA Non-Admin Reason: Patient Condition Contraindication Tamsulosin HCl (Tamsulosin Hcl 0.4 Mg Capsule) 0.4 mg PO DAILY [facility] Last Admin: 09/02/21 09:31 Dose: Not Given Documented by: LUCRETIA Non-Admin Reason: Patient Condition Contraindication Ziprasidone (Ziprasidone 80 Mg Capsule) 80 mg PO BEDTIME [facility] Last Admin: 09/01/21 21:27 Dose: 80 mg Documented by: RD Ziprasidone (Ziprasidone 60 Mg Capsule) 60 mg PO DAILY [facility] Last Admin: 09/02/21 09:32 Dose: Not Given Documented by: LUCRETIA Non-Admin Reason: Patient Condition Contraindication Labs CBC & Chem 7: 09/02/21 06:57 09/02/21 06:57 Labs: Laboratory Results - last 24 hr 09/01/21 09/01/21 09/02/21 02:48 10:04 06:57 MCV 90.5 MCH 28.9 MCHC 31.9 RDW 15.1 Plt Count 194 MPV 9.9 Absolute Nucleated RBC 0.000 Nucleated RBC % (auto) 0.0 Anion Gap Estim Creat Clear Calc Estimated GFR Fasting Glucose Estimat Average Glucose 103 Hemoglobin A1c % 5.2 Calcium Troponin I High Sens 1468.0 H* D 09/02/21 06:57 MCV MCH MCHC RDW Plt Count MPV Absolute Nucleated RBC Nucleated RBC % (auto) Anion Gap 9 L Estim Creat Clear Calc 55.3 Estimated GFR > 60 Fasting Glucose 108 H Estimat Average Glucose Hemoglobin A1c % Calcium 8.5 Troponin I High Sens Microbiology Microbiology Results: Microbiology 09/01/21 02:49 Blood Culture - Preliminary Blood - Venous No growth after 24 hours. 09/01/21 02:48 Blood Culture - Preliminary Blood - Venous No growth after 24 hours. Assessment and Plan (1) Elevated troponin: Status: Acute Plan 76 male to Female presented with hypoxia and nstemi ?Acute hypoxic respiratory failure secondary to aspiration pneumonia ?no evidence of sepsis continue ?IV unasyn, wean O2 as tolerated SKIN CARE THERAPIST appreciated, patient likely to aspirate on all consistencies, d/w HCP, would not want NPO or Gtube, so will continue pureed with pudding thick accepting risks for ongoing aspiration events for now. ?NSTEMI ?type II due to above ?follow-up echo, cardio following bradyarrythmia follow up cardio, echo COPD stable hypothyroid synthroid (if tolerating po) schizophrenia and vascular dementia haldol, ziprasidone (okay to hold if cant swallow) BPH flomax if tolerating po, monitor for retention ?DM not on meds, a1c 5.2, likely resolved moderate protein calorie malnutrition due to dysphagia dvt prophylaxis - lovenox molst - DNR/DNI, okay for niv reason for continued hospitalization: significant bradyarrythemia on telemetry requiring further work up in inpatient setting as well as continued weaning of o2 and iv abx for aspiraion. Quality Stroke Does the patient have a stroke diagnosis?: No VTE Prior VTE?: No VTE Risk Level:: Medical - moderate - high VTE Device Contraindication: Treatment Not Indicated VTE Drug Contraindication: N/A - Med Ordered
[2021-09-02] MEDS: Enoxaparin Sodium 40 MG/0.4 ML SYRINGE SUBCUT (10:02)
--- NOTE | 2021-09-02 10:10 | MHC.SLORD ---
Speech Language Pathology Order Status: Pt with overt signs and symptoms of inability to manage her own secretions. This is evidenced by copious bubbling of oral secretions and the need to be suctioned >10 times since morning shift has begun. Pt is coughing at baseline and the secretions are observed intraorally. She is not able to expectorate or clear independently. I recommend/support hold of all PO as patient is struggling to maintain her airway and PO intake may only exacerbate further respiratory decline. The patient's family should be educated regarding the overt risks of offering anything orally outweighing any benefits at this time. FLAME CUTTING SUPERVISOR is willing and able to support the staff/family in understanding of risk/benefit discussion if need be.
[2021-09-02 10:19] VITALS: BMI 18.8
[2021-09-02 11:20] VITALS: BP 131/58; PULSE 62; RESP 18; TEMP 37.3; O2SAT 93
[2021-09-02 15:17] VITALS: BP 107/57; PULSE 57; RESP 19; TEMP 38.1; O2SAT 95
[2021-09-02 19:26] VITALS: BP 105/41; PULSE 50; RESP 18; TEMP 37.3; O2SAT 92
[2021-09-02 23:21] VITALS: BP 122/53; PULSE 50; RESP 17; TEMP 36.4; O2SAT 96
[2021-09-03] VITALS (7 sets, daily range): BP systolic 98–118; BP diastolic 46–60; PULSE 40–62; RESP 16–17; TEMP 36.1–37; O2SAT 92–95
[2021-09-03] MEDS: Ampicillin Sodium/Sulbactam Na 1.5 GM in 0.9 % Sodium Chloride 100 ML IV ×4 (05:57→22:20)
[2021-09-03] MEDS: Enoxaparin Sodium 40 MG/0.4 ML SYRINGE SUBCUT (08:48)
--- NOTE | 2021-09-03 10:23 | P.PNIM_ITS ---
Subjective Subjective Date of Service: 09/03/21 Interval History: cc: hypoxia interval history:not ansewring today Review of Systems Review of Systems: Yes Unobtainable due to mental status Physical Exam Vital Signs: Vital Signs: Last Vital Signs Temp 98.5 F 09/03/21 07:53 Pulse 43 L 09/03/21 07:53 Resp 16 09/03/21 07:53 BP 109/51 L 09/03/21 07:53 Pulse Ox 94 09/03/21 07:53 BMI result Body Mass Index 18.8 General: AO X 1, coughing, minimally verbal Resp:? rhocnhi bilateral, no accessory muscles used CVS: S1,S2,RRR GI: soft, non tender, non distended Neuro:? motor grossly intact, alert Psych: impaired insight? Objective Data Active Medications Acetaminophen (Acetaminophen 325 Mg Tablet) 650 mg PO Q6H PRN PRN Reason: Pain, Mild (Pain Scale 1-3) Aspirin (Aspirin 81 Mg Tab.Chew) 81 mg PO DAILY [facility] Last Admin: 09/03/21 08:43 Dose: Not Given Documented by: BILLY Non-Admin Reason: Patient Condition Contraindication Atorvastatin Calcium (Atorvastatin Calcium 80 Mg Tablet) 80 mg PO BEDTIME [facility] Last Admin: 09/02/21 23:01 Dose: Not Given Documented by: CLAUDIA Non-Admin Reason: Patient Condition Contraindication Bisacodyl (Bisacodyl 10 Mg Supp.Rect) 10 mg [place] DAILY PRN PRN Reason: Constipation Enoxaparin Sodium (Enoxaparin Sodium 40 Mg/0.4 Ml Syringe) 40 mg SUBCUT DAILY [facility] Last Admin: 09/03/21 08:48 Dose: 40 mg Documented by: BILLY Finasteride (Finasteride 5 Mg Tablet) 5 mg PO DAILY [facility] Last Admin: 09/03/21 08:44 Dose: Not Given Documented by: BILLY Non-Admin Reason: Patient Condition Contraindication Guaifenesin (Guaifenesin 100 Mg/5 Ml Liquid) 10 ml PO Q4H PRN PRN Reason: Cough Haloperidol (Haloperidol 0.5 Mg Tablet) 0.5 mg PO BID [facility] Last Admin: 09/03/21 08:44 Dose: Not Given Documented by: BILLY Non-Admin Reason: Patient Condition Contraindication Ampicillin Sodium/Sulbactam (Sodium 1.5 gm/ Sodium Chloride) 100 mls @ 200 mls/hr IV Q6H [facility] Last Infusion: 09/03/21 06:45 Dose: 0 mls/hr Documented by: CLAUDIA Lactulose (Lactulose 20 Gm/30 Ml Solution) 20 gm PO DAILY [facility] Last Admin: 09/03/21 08:44 Dose: Not Given Documented by: BILLY Non-Admin Reason: Patient Condition Contraindication Levothyroxine Sodium (Levothyroxine Sodium 50 Mcg Tablet) 50 mcg PO DAILY@0630 [facility] Last Admin: 09/03/21 06:00 Dose: Not Given Documented by: CLAUDIA Non-Admin Reason: Patient Condition Contraindication Lorazepam (Lorazepam 0.5 Mg Tablet) 0.5 mg PO TID PRN PRN Reason: Anxiety Magnesium Hydroxide (Milk Of Magnesia 30 Ml Oral.Susp) 30 ml PO DAILY PRN PRN Reason: Constipation Morphine Sulfate (Morphine Sulfate Oral Charlee 10 Mg/5 Ml Solution) 5 mg PO Q6H [facility] Last Admin: 09/03/21 06:00 Dose: Not Given Documented by: CLAUDIA Non-Admin Reason: Patient Condition Contraindication Pharmacy Consult (Consult Rx Perform Med Rec) 1 each MISCELLANE ONCE PRN PRN Reason: Consult order Senna (Sennosides 8.6 Mg Tablet) 17.2 mg PO BID [facility] Last Admin: 09/03/21 08:44 Dose: Not Given Documented by: BILLY Non-Admin Reason: Patient Condition Contraindication Tamsulosin HCl (Tamsulosin Hcl 0.4 Mg Capsule) 0.4 mg PO DAILY [facility] Last Admin: 09/03/21 08:44 Dose: Not Given Documented by: BILLY Non-Admin Reason: Patient Condition Contraindication Ziprasidone (Ziprasidone 80 Mg Capsule) 80 mg PO BEDTIME [facility] Last Admin: 09/02/21 23:01 Dose: Not Given Documented by: CLAUDIA Non-Admin Reason: Patient Condition Contraindication Ziprasidone (Ziprasidone 60 Mg Capsule) 60 mg PO DAILY [facility] Last Admin: 09/03/21 08:44 Dose: Not Given Documented by: BILLY Non-Admin Reason: Patient Condition Contraindication Labs CBC & Chem 7: 09/02/21 06:57 09/02/21 06:57 Microbiology Microbiology Results: Microbiology 09/01/21 02:49 Blood Culture - Preliminary Blood - Venous No growth after 48 hours. 09/01/21 02:48 Blood Culture - Preliminary Blood - Venous No growth after 48 hours. Assessment and Plan (1) Elevated troponin: Status: Acute Plan 76 male to Female presented with hypoxia and nstemi ?Acute hypoxic respiratory failure secondary to aspiration pneumonia ?no evidence of sepsis continue ?IV unasyn, now off o2 PAINTER ASSISTANT appreciated, patient likely to aspirate on all consistencies, d/w HCP, would not want NPO or Gtube, so will continue pureed with pudding thick accepting risks for ongoing aspiration events for now. ?NSTEMI ?type II due to above ?follow-up echo, cardio following bradyarrythmia follow up cardio, echo COPD stable hypothyroid synthroid (if tolerating po) schizophrenia and vascular dementia haldol, ziprasidone (okay to hold if cant swallow) BPH flomax if tolerating po, monitor for retention ?DM not on meds, a1c 5.2, likely resolved moderate protein calorie malnutrition due to dysphagia dvt prophylaxis - lovenox molst - DNR/DNI, okay for niv reason for continued hospitalization: significant bradyarrythemia on telemetry requiring further work up in inpatient setting as well as continued iv abx for aspiration. Quality Stroke Does the patient have a stroke diagnosis?: No VTE Prior VTE?: No VTE Risk Level:: Medical - moderate - high VTE Device Contraindication: Treatment Not Indicated VTE Drug Contraindication: N/A - Med Ordered
[2021-09-03] MEDS: Atorvastatin Calcium 80 MG TABLET PO (22:19)
[2021-09-03] MEDS: Sennosides 8.6 MG TABLET 17.2 MG PO (22:19)
[2021-09-03] MEDS: HaloperidoL 0.5 MG TABLET PO (22:20)
[2021-09-04 03:00] VITALS: BP 108/62; PULSE 40; RESP 17; TEMP 36; O2SAT 94
--- NOTE | 2021-09-04 04:18 | ECG_ITS ---
Test Reason : cp Blood Pressure : / mmHG Vent. Rate : 046 BPM Atrial Rate : 000 BPM P-R Int : 000 ms QRS Dur : 082 ms QT Int : 556 ms P-R-T Axes : 000 055 068 degrees QTc Int : 486 ms Junctional rhythm with occasional Premature ventricular complexes Low voltage QRS Abnormal ECG When compared with ECG of 01-SEP-2021 02:07, Junctional rhythm has replaced Sinus rhythm QT has lengthened Referred By: Krunal Hinds Electronically Signed By:RUPINDER ZARAGOZA MD
--- NOTE | 2021-09-04 04:55 | PM.EVENT ---
Event Note Date of Service: 09/04/21 Event Note: Bradycardia: pt had 5.7 sec pause; HR in 40s; bed side pacers. cardiology follow up.
[2021-09-04] MEDS: Ampicillin Sodium/Sulbactam Na 1.5 GM in 0.9 % Sodium Chloride 100 ML IV ×4 (04:59→23:28)
[2021-09-04 05:33] LABS: Hematocrit 30.6 % (37.0-47.0); Hemoglobin 9.7 g/dl (12.0-16.0); Mean Corpuscular HGB Conc 31.7 g/dl (31.0-35.0); Mean Corpuscular Hemoglobin 28.6 pg (27.0-33.0); Mean Corpuscular Volume 90.3 fL (80.0-98.0); Mean Platelet Volume 10.2 fL (9.4-12.3); Platelet Count 182 X10*3/uL (160-400); Red Blood Count 3.39 X10*6/uL (4.20-5.50); Red Cell Distribution Width 15.3 % (11.0-16.0); White Blood Count 3.9 X10*3/uL (4.8-10.8)
[2021-09-04 06:28] LABS: Anion Gap 12 (12-20); Blood Urea Nitrogen 22 mg/dL (9-16); Calcium 8.5 mg/dL (8.4-10.2); Carbon Dioxide 25 mmol/L (22-29); Chloride 110 mmol/L (96-108); Creatinine Clr Calc Pharmacy 51.4; Estimated Glomerular Filt Rate > 60; Glucose Fasting 94 mg/dL (60-99); Potassium 4.4 mmol/L (3.3-5.1); Sodium 143 mmol/L (135-145)
[2021-09-04 07:13] VITALS: BP 106/66; PULSE 58; RESP 19; TEMP 36.4; O2SAT 95
[2021-09-04] MEDS: Aspirin 81 MG TAB.CHEW PO (08:01)
[2021-09-04] MEDS: HaloperidoL 0.5 MG TABLET PO ×2 (08:01→20:33)
[2021-09-04] MEDS: Enoxaparin Sodium 40 MG/0.4 ML SYRINGE SUBCUT (08:01)
[2021-09-04] MEDS: Finasteride 5 MG TABLET PO (08:01)
[2021-09-04] MEDS: Sennosides 8.6 MG TABLET 17.2 MG PO ×2 (08:01→20:33)
[2021-09-04] MEDS: Lactulose 20 GM/30 ML SOLUTION PO (08:09)
[2021-09-04 11:27] VITALS: BP 108/46; PULSE 71; RESP 19; TEMP 36.4; O2SAT 97
--- NOTE | 2021-09-04 11:36 | PM.PNCARD ---
Subjective Subjective Date of Service: 09/04/21 Interval history: Seen examined at bedside. Telemetry has shown sinus bradycardia and junctional bradycardia. Patient unable to provide any history. Due to speech issues very hard to understand her. Physical Exam Vital Signs: Last Vital Signs Temp 97.6 F 09/04/21 11:27 Pulse 71 09/04/21 11:27 Resp 19 09/04/21 11:27 BP 108/46 L 09/04/21 11:27 Pulse Ox 97 09/04/21 11:27 BMI result Body Mass Index 18.8 GENERAL APPEARANCE: Looks upset. Speech issues and unable to understand what she is saying. NECK: no carotid bruit, no jugular venous distention. SKIN: no suspicious lesions, warm and dry. HEART: no murmurs, regular rate and rhythm. Bradycardic LUNGS: clear to auscultation bilaterally. ABDOMEN: soft, nontender. EXTREMITIES: no edema. PERIPHERAL PULSES: equal. Objective Labs and Meds Result diagrams: 09/04/21 04:48 09/04/21 04:48 Lab results: Laboratory Results - last 24 hr 09/04/21 09/04/21 04:48 04:48 WBC 3.9 L RBC 3.39 L Hgb 9.7 L Hct 30.6 L MCV 90.3 MCH 28.6 MCHC 31.7 RDW 15.3 Plt Count 182 MPV 10.2 Absolute Nucleated RBC 0.000 Nucleated RBC % (auto) 0.0 Sodium 143 Potassium 4.4 Chloride 110 H Carbon Dioxide 25 Anion Gap 12 BUN 22 H Creatinine 0.71 Estim Creat Clear Calc 51.4 Estimated GFR > 60 Fasting Glucose 94 Calcium 8.5 Progress Note: A&P Assessment and plan (1) Elevated troponin: Status: Acute (2) Bradycardia: Status: Acute Plan 76-year-old female presented with hypoxia due to aspiration pneumonia. She was noted to have NSTEMI which was thought to be secondary to a type 2 injury from hypoxia. Echocardiography has not shown significant wall motion abnormality. She has been noticed to be bradycardic. She is unable to ambulate so difficult to know whether heart rate will improve with ambulation or not. She also has been in and out of junctional rhythm in 30s. Her blood pressure has been stable. Symptoms are difficult to assess due to her speech issues. Ziprasidone has some case reports of symptomatic bradycardia. If the dose can be decreased safely then I think that should be tried. Also she has hypothyroidism and we should repeat a TSH level. I do not see any obvious indication for pacemaker right now as there is no documented symptomatic bradycardia and heart rate has been fluctuating between 40s to 50s. Thank you for allowing me to participate in the care of your patient. Please feel free to contact me if you have any questions. Fall Risk Details Current Medications: Current Medications Acetaminophen (Acetaminophen 325 Mg Tablet) 650 mg PO Q6H PRN PRN Reason: Pain, Mild (Pain Scale 1-3) Aspirin (Aspirin 81 Mg Tab.Chew) 81 mg PO DAILY [facility] Last Admin: 09/04/21 08:01 Dose: 81 mg Documented by: Atorvastatin Calcium (Atorvastatin Calcium 80 Mg Tablet) 80 mg PO BEDTIME [facility] Last Admin: 09/03/21 22:19 Dose: 80 mg Documented by: Bisacodyl (Bisacodyl 10 Mg Supp.Rect) 10 mg [place] DAILY PRN PRN Reason: Constipation Enoxaparin Sodium (Enoxaparin Sodium 40 Mg/0.4 Ml Syringe) 40 mg SUBCUT DAILY [facility] Last Admin: 09/04/21 08:01 Dose: 40 mg Documented by: Finasteride (Finasteride 5 Mg Tablet) 5 mg PO DAILY [facility] Last Admin: 09/04/21 08:01 Dose: 5 mg Documented by: Guaifenesin (Guaifenesin 100 Mg/5 Ml Liquid) 10 ml PO Q4H PRN PRN Reason: Cough Haloperidol (Haloperidol 0.5 Mg Tablet) 0.5 mg PO BID [facility] Last Admin: 09/04/21 08:01 Dose: 0.5 mg Documented by: Ampicillin Sodium/Sulbactam (Sodium 1.5 gm/ Sodium Chloride) 100 mls @ 200 mls/hr IV Q6H [facility] Last Admin: 09/04/21 11:22 Dose: 200 mls/hr Documented by: Lactulose (Lactulose 20 Gm/30 Ml Solution) 20 gm PO DAILY [facility] Last Admin: 09/04/21 08:09 Dose: 20 gm Documented by: Levothyroxine Sodium (Levothyroxine Sodium 50 Mcg Tablet) 50 mcg PO DAILY@0630 [facility] Last Admin: 09/04/21 05:06 Dose: Not Given Documented by: Lorazepam (Lorazepam 0.5 Mg Tablet) 0.5 mg PO TID PRN PRN Reason: Anxiety Magnesium Hydroxide (Milk Of Magnesia 30 Ml Oral.Susp) 30 ml PO DAILY PRN PRN Reason: Constipation Morphine Sulfate (Morphine Sulfate Oral Charlee 10 Mg/5 Ml Solution) 5 mg PO Q6H [facility] Last Admin: 09/04/21 11:36 Dose: Not Given Documented by: Pharmacy Consult (Consult Rx Perform Med Rec) 1 each MISCELLANE ONCE PRN PRN Reason: Consult order Senna (Sennosides 8.6 Mg Tablet) 17.2 mg PO BID [facility] Last Admin: 09/04/21 08:01 Dose: 17.2 mg Documented by: Tamsulosin HCl (Tamsulosin Hcl 0.4 Mg Capsule) 0.4 mg PO DAILY [facility] Last Admin: 09/04/21 08:12 Dose: Not Given Documented by: Ziprasidone (Ziprasidone 80 Mg Capsule) 80 mg PO BEDTIME [facility] Last Admin: 09/03/21 22:21 Dose: Not Given Documented by: Ziprasidone (Ziprasidone 60 Mg Capsule) 60 mg PO DAILY [facility] Last Admin: 09/04/21 08:12 Dose: Not Given Documented by: Time Spent With Patient Time: Total time spent is greater than 50% in coordination of care (as documented) at patient's floor/unit and/or counseling patient: Progress Note: Quality Stroke Does the patient have a stroke diagnosis?: No Procedures Date of Service Date of Service: 09/04/21
--- NOTE | 2021-09-04 11:51 | P.PNIM_ITS ---
Subjective Subjective Date of Service: 09/04/21 Interval History: cc: hypoxia interval history:still with significant bradycardi Cardiovascular Cardiovascular: Reports no additional cardiovascular complaints Respiratory Respiratory: Reports no additional respiratory complaints Physical Exam Vital Signs: Vital Signs: Last Vital Signs Temp 97.6 F 09/04/21 11:27 Pulse 71 09/04/21 11:27 Resp 19 09/04/21 11:27 BP 108/46 L 09/04/21 11:27 Pulse Ox 97 09/04/21 11:27 BMI result Body Mass Index 18.8 GENERAL APPEARANCE:? Looks upset.? Speech issues and unable to understand what she is saying. NECK: no carotid bruit, no jugular venous distention. SKIN: no suspicious lesions, warm and dry. HEART: no murmurs, regular rate and rhythm.? Bradycardic LUNGS: clear to auscultation bilaterally. ABDOMEN: soft, nontender. EXTREMITIES: no edema. PERIPHERAL PULSES: equal. Objective Data Active Medications Acetaminophen (Acetaminophen 325 Mg Tablet) 650 mg PO Q6H PRN PRN Reason: Pain, Mild (Pain Scale 1-3) Aspirin (Aspirin 81 Mg Tab.Chew) 81 mg PO DAILY [facility] Last Admin: 09/04/21 08:01 Dose: 81 mg Documented by: JOSE Atorvastatin Calcium (Atorvastatin Calcium 80 Mg Tablet) 80 mg PO BEDTIME [facility] Last Admin: 09/03/21 22:19 Dose: 80 mg Documented by: CLAUDIA Bisacodyl (Bisacodyl 10 Mg Supp.Rect) 10 mg [place] DAILY PRN PRN Reason: Constipation Enoxaparin Sodium (Enoxaparin Sodium 40 Mg/0.4 Ml Syringe) 40 mg SUBCUT DAILY [facility] Last Admin: 09/04/21 08:01 Dose: 40 mg Documented by: JOSE Finasteride (Finasteride 5 Mg Tablet) 5 mg PO DAILY [facility] Last Admin: 09/04/21 08:01 Dose: 5 mg Documented by: JOSE Guaifenesin (Guaifenesin 100 Mg/5 Ml Liquid) 10 ml PO Q4H PRN PRN Reason: Cough Haloperidol (Haloperidol 0.5 Mg Tablet) 0.5 mg PO BID [facility] Last Admin: 09/04/21 08:01 Dose: 0.5 mg Documented by: JOSE Ampicillin Sodium/Sulbactam (Sodium 1.5 gm/ Sodium Chloride) 100 mls @ 200 mls/hr IV Q6H [facility] Last Admin: 09/04/21 11:22 Dose: 200 mls/hr Documented by: JOSE Lactulose (Lactulose 20 Gm/30 Ml Solution) 20 gm PO DAILY [facility] Last Admin: 09/04/21 08:09 Dose: 20 gm Documented by: JOSE Levothyroxine Sodium (Levothyroxine Sodium 50 Mcg Tablet) 50 mcg PO DAILY@0630 [facility] Last Admin: 09/04/21 05:06 Dose: Not Given Documented by: CLAUDIA Non-Admin Reason: Patient Condition Contraindication Lorazepam (Lorazepam 0.5 Mg Tablet) 0.5 mg PO TID PRN PRN Reason: Anxiety Magnesium Hydroxide (Milk Of Magnesia 30 Ml Oral.Susp) 30 ml PO DAILY PRN PRN Reason: Constipation Morphine Sulfate (Morphine Sulfate Oral Charlee 10 Mg/5 Ml Solution) 5 mg PO Q6H [facility] Last Admin: 09/04/21 11:36 Dose: Not Given Documented by: JOSE Non-Admin Reason: Patient Condition Contraindication Pharmacy Consult (Consult Rx Perform Med Rec) 1 each MISCELLANE ONCE PRN PRN Reason: Consult order Senna (Sennosides 8.6 Mg Tablet) 17.2 mg PO BID [facility] Last Admin: 09/04/21 08:01 Dose: 17.2 mg Documented by: JOSE Tamsulosin HCl (Tamsulosin Hcl 0.4 Mg Capsule) 0.4 mg PO DAILY [facility] Last Admin: 09/04/21 08:12 Dose: Not Given Documented by: JOSE Non-Admin Reason: Patient Condition Contraindication Ziprasidone (Ziprasidone 80 Mg Capsule) 80 mg PO BEDTIME [facility] Last Admin: 09/03/21 22:21 Dose: Not Given Documented by: CLAUDIA Non-Admin Reason: Unable to swallow capsule Ziprasidone (Ziprasidone 60 Mg Capsule) 60 mg PO DAILY [facility] Last Admin: 09/04/21 08:12 Dose: Not Given Documented by: JOSE Non-Admin Reason: Patient Condition Contraindication Labs CBC & Chem 7: 09/04/21 04:48 09/04/21 04:48 Labs: Laboratory Results - last 24 hr 09/04/21 09/04/21 04:48 04:48 MCV 90.3 MCH 28.6 MCHC 31.7 RDW 15.3 Plt Count 182 MPV 10.2 Absolute Nucleated RBC 0.000 Nucleated RBC % (auto) 0.0 Anion Gap 12 Estim Creat Clear Calc 51.4 Estimated GFR > 60 Fasting Glucose 94 Calcium 8.5 Assessment and Plan (1) Elevated troponin: Status: Acute Plan 76 male to Female presented with hypoxia and nstemi ?Acute hypoxic respiratory failure secondary to aspiration pneumonia ?no evidence of sepsis continue ?IV unasyn, 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 ?NSTEMI ?type II due to above echo with no WMA cardio following bradyarrythmia cardio appreciated, will decrease geodon, monitor, no plan for pacer at this time COPD stable hypothyroid synthroid (if tolerating po) schizophrenia and vascular dementia haldol, ziprasidone (okay to hold if cant swallow) BPH flomax if tolerating po, monitor for retention ?DM not on meds, a1c 5.2, likely resolved moderate protein calorie malnutrition due to dysphagia dvt prophylaxis - lovenox molst - DNR/DNI, okay for niv reason for continued hospitalization: significant bradyarrythemia on telemetry requiring med adjustment and inpatient monitoring for effect Quality Stroke Does the patient have a stroke diagnosis?: No VTE Prior VTE?: No VTE Risk Level:: Medical - moderate - high VTE Device Contraindication: Treatment Not Indicated VTE Drug Contraindication: N/A - Med Ordered
[2021-09-04 12:45] LABS: Thyroid Stimulating Hormone 0.72 uIU/mL (0.32-4.0)
[2021-09-04 15:19] VITALS: BP 117/43; PULSE 48; RESP 16; TEMP 37; O2SAT 98
--- NOTE | 2021-09-04 18:09 | PC.NURSE ---
Patient has been sinus bradycardic, low being high 30s today. She just had a 3.21 seconds pause now. Doctor aware.
--- NOTE | 2021-09-04 18:28 | PC.NURSE ---
phototypesetting equipment monitor has recorded multiple pauses, not less than 5 pauses in the last hour, each ranging at about [address] medina.
[2021-09-04 20:00] VITALS: BP 126/55; PULSE 46; RESP 18; TEMP 36.5; O2SAT 96
[2021-09-04] MEDS: Atorvastatin Calcium 80 MG TABLET PO (20:33)
[2021-09-04 23:13] VITALS: BP 121/58; PULSE 48; RESP 18; TEMP 36.6; O2SAT 97
[2021-09-05 03:58] VITALS: BP 131/48; PULSE 40; RESP 18; TEMP 36.3; O2SAT 96
[2021-09-05] MEDS: Ampicillin Sodium/Sulbactam Na 1.5 GM in 0.9 % Sodium Chloride 100 ML IV ×4 (04:49→23:53)
[2021-09-05] MEDS: Levothyroxine Sodium 50 MCG TABLET PO (06:20)
[2021-09-05 07:27] VITALS: BP 139/72; PULSE 33; RESP 12; TEMP 37; O2SAT 93
[2021-09-05] MEDS: Sennosides 8.6 MG TABLET 17.2 MG PO ×2 (09:45→20:38)
[2021-09-05] MEDS: Lactulose 20 GM/30 ML SOLUTION PO (09:45)
[2021-09-05] MEDS: Aspirin 81 MG TAB.CHEW PO (09:45)
[2021-09-05] MEDS: HaloperidoL 0.5 MG TABLET PO ×2 (09:45→20:40)
[2021-09-05] MEDS: Enoxaparin Sodium 40 MG/0.4 ML SYRINGE SUBCUT (09:45)
[2021-09-05] MEDS: Finasteride 5 MG TABLET PO (09:45)
--- NOTE | 2021-09-05 09:52 | PM.DS ---
DS: Providers Provider Date of Service: 09/05/21 Date of admission: 09/01/21 09:31 Primary care physician: Unknown Physician Consults: 09/01/21 09:32 Consult to Cardiology Routine Consulting Provider: Hitesh Osman Reason for consultation: nstemi DS: Diagnosis Discharge Diagnosis (1) Elevated troponin: Status: Acute DS: Summary Hospital Course Hospital Course: from initial hpi: Chief Complaint: Hypoxia ?76-year-old male to female sent in from [facility] for acute hypoxic respiratory failure.? Patient herself is minimally verbal and is a poor historian.? History obtained from facility.? Patient was noted to have increased cough on day of admission she has a p.r.n. O2 order, was up to 6 L and desatting to low 80s.? In ED patient required high-flow oxygen.? CT chest consistent with aspiration pneumonia.? Patient was given Zosyn.? EKG showed? dynamic anterior lead ST depression with T-wave inversion, and troponin was 733.? Patient denies any chest pain. hospital course: patient was admitted for acute hypoxic respiratory failure secondary to aspiration pneumonia. She had no evidence of sepsis, she was treated with IV Unasyn and weaned off oxygen. She was seen by speech therapy who found that patient was aspirated all consistencies. Discussion was had with patient's healthcare proxy and decision made to tolerate risk of aspiration and order to maximize quality of life, at the same time will try and mitigate that risk as much as possible but continuing with pureed solids and pudding thick liquids. Course was complicated by NSTEMI, she was seen by Cardiology who felt this was likely type 2 due to hypoxia. Echo showed no wall motion abnormalities. Course was further complicated by Peterson arrhythmia both sinus bradycardia and junctional rhythm. Patient was asymptomatic, per cardiology would not benefit from pacemaker at this time. Theoretically Geodon could be causing bradycardia therefore dose was decreased. Her COPD remains stable, for hypothyroidism she was continued on Synthroid, TSH was within normal limits. For her schizophrenia vascular dementia she was continued on Haldol and Geodon was decreased dose. For BPH Flomax was continued. There was previously mention of diabetes, however this was either Wilmer yes or from distant past, patient is not on medications and A1c was 5.2. Patient has moderate protein calorie malnutrition due to dysphagia. She is now medically stable [facility] Time Spent with Patient Time attestation: Total time spent providing and/or coordinating discharge services: Discharge coordination time: Greater than 30 minutes Quality: Safe Use of Opioids Does Pt have an Active Cancer Diagnosis on the Problem List?: No Quality: Stroke Does the patient have a stroke diagnosis?: No Physical Exam Vital Signs: Vital Signs: Last Vital Signs Temp 98.6 F 09/05/21 07:27 Pulse 33 L 09/05/21 07:27 Resp 12 09/05/21 07:27 BP 139/72 09/05/21 07:27 Pulse Ox 93 09/05/21 07:27 BMI result Body Mass Index 18.8 GENERAL APPEARANCE:? Looks upset.? Speech issues and unable to understand what she is saying. NECK: no carotid bruit, no jugular venous distention. SKIN: no suspicious lesions, warm and dry. HEART: no murmurs, regular rate and rhythm.? Bradycardic LUNGS: clear to auscultation bilaterally. ABDOMEN: soft, nontender. EXTREMITIES: no edema. PERIPHERAL PULSES: equal. DS: Data Data Completed and Pending Labs on day of discharge: Laboratory Results - last 24 hr 09/04/21 04:48 TSH 0.72 Preliminary micro results at discharge 09/01/21 02:49 Blood Culture - Preliminary Blood - Venous No growth after 48 hours. 09/01/21 02:48 Blood Culture - Preliminary Blood - Venous No growth after 48 hours. Discharge Plan Discharge Patient Disposition: [facility] Discharge Diagnosis: aspiration, peterson, nstemi Referrals: Physician,Unknown J [Primary Care Provider] - 1 Week Discharge Medications: New ziprasidone HCl 40 mg Capsule 40 mg PO DAILY Qty: 0 0RF ziprasidone HCl 40 mg Capsule 40 mg PO BEDTIME Qty: 0 0RF amoxicillin-pot clavulanate 500-125 mg tablet 1 tab PO BID Qty: 10 0RF Continued haloperidol 0.5 mg tablet 1 tab PO BID 0RF morphine concentrate 100 mg/5 mL (20 mg/mL) solution 5 mg PO Q6H 0RF lorazepam 0.5 mg tablet 1 tab PO TID PRN (Reason: Anxiety) 0RF tamsulosin 0.4 mg capsule 1 cap PO DAILY 0RF levothyroxine 50 mcg tablet 1 tab PO DAILY 0RF finasteride 5 mg tablet 1 tab PO DAILY 0RF lactulose [Enulose] 10 gram/15 mL solution 30 ml PO DAILY 0RF sennosides [senna] 8.6 mg Tablet 17.2 mg PO BID 0RF acetaminophen 325 mg Tablet 650 mg PO Q4H PRN (Reason: Fever) 0RF acetaminophen 650 mg Suppository 650 mg AL Q4H PRN (Reason: Fever) 0RF guaifenesin 100 mg/5 mL Liquid 200 mg PO Q4H PRN (Reason: Cough) 0RF magnesium hydroxide [Milk of Magnesia] 400 mg/5 mL Suspension 30 ml PO DAILY PRN (Reason: Constipation) 0RF bisacodyl 10 mg Suppository 10 mg [place] DAILY PRN (Reason: Constipation) 0RF Discontinued ziprasidone HCl 80 mg capsule 1 cap PO BEDTIME 0RF ziprasidone HCl 60 mg capsule 1 cap PO DAILY 0RF Discharge Orders: Discharge Order (Routine); Ordered 09/05/21 Ordered By: Alfred Madison Diet: other Activity on Discharge: As tolerated Stand Alone Forms: Patient Portal Discharge page Care Plan Goals: maximize quality of life Health Concerns: aspiration, bradycardia Plan of Treatment: plan to tolerate risk of aspiration to improve quality of life, but will try to mitigate risk as much as possible - diet should be pureed solids with pudding thick liquids, 5 more days of augmentin, decreased geodon as theoretically could be cause of bradycardia, per cardiology no indication at this time for pacer as patient asymptomatic Assessment: see above
--- NOTE | 2021-09-05 11:18 | P.PNIM_ITS ---
Subjective Subjective Date of Service: 09/05/21 Interval History: cc: hypoxia interval history: uable to comunicate Review of Systems Review of Systems: Yes Unobtainable due to mental condition Physical Exam Vital Signs: Vital Signs: Last Vital Signs Temp 98.6 F 09/05/21 07:27 Pulse 33 L 09/05/21 07:27 Resp 12 09/05/21 07:27 BP 139/72 09/05/21 07:27 Pulse Ox 93 09/05/21 07:27 BMI result Body Mass Index 18.8 GENERAL APPEARANCE:? Looks upset.? Speech issues and unable to understand what she is saying. NECK: no carotid bruit, no jugular venous distention. SKIN: no suspicious lesions, warm and dry. HEART: no murmurs, regular rate and rhythm.? Bradycardic LUNGS: clear to auscultation bilaterally. ABDOMEN: soft, nontender. EXTREMITIES: no edema. PERIPHERAL PULSES: equal. Objective Data Active Medications Acetaminophen (Acetaminophen 325 Mg Tablet) 650 mg PO Q6H PRN PRN Reason: Pain, Mild (Pain Scale 1-3) Aspirin (Aspirin 81 Mg Tab.Chew) 81 mg PO DAILY [facility] Last Admin: 09/05/21 09:45 Dose: 81 mg Documented by: LUCRETIA Atorvastatin Calcium (Atorvastatin Calcium 80 Mg Tablet) 80 mg PO BEDTIME [facility] Last Admin: 09/04/21 20:33 Dose: 80 mg Documented by: CLAUDIA Bisacodyl (Bisacodyl 10 Mg Supp.Rect) 10 mg [place] DAILY PRN PRN Reason: Constipation Enoxaparin Sodium (Enoxaparin Sodium 40 Mg/0.4 Ml Syringe) 40 mg SUBCUT DAILY [facility] Last Admin: 09/05/21 09:45 Dose: 40 mg Documented by: LUCRETIA Finasteride (Finasteride 5 Mg Tablet) 5 mg PO DAILY [facility] Last Admin: 09/05/21 09:45 Dose: 5 mg Documented by: LUCRETIA Guaifenesin (Guaifenesin 100 Mg/5 Ml Liquid) 10 ml PO Q4H PRN PRN Reason: Cough Haloperidol (Haloperidol 0.5 Mg Tablet) 0.5 mg PO BID [facility] Last Admin: 09/05/21 09:45 Dose: 0.5 mg Documented by: LUCRETIA Ampicillin Sodium/Sulbactam (Sodium 1.5 gm/ Sodium Chloride) 100 mls @ 200 mls/hr IV Q6H [facility] Last Infusion: 09/05/21 05:34 Dose: 0 mls/hr Documented by: CLAUDIA Lactulose (Lactulose 20 Gm/30 Ml Solution) 20 gm PO DAILY [facility] Last Admin: 09/05/21 09:45 Dose: 20 gm Documented by: LUCRETIA Levothyroxine Sodium (Levothyroxine Sodium 50 Mcg Tablet) 50 mcg PO DAILY@0630 [facility] Last Admin: 09/05/21 06:20 Dose: 50 mcg Documented by: CLAUDIA Lorazepam (Lorazepam 0.5 Mg Tablet) 0.5 mg PO TID PRN PRN Reason: Anxiety Magnesium Hydroxide (Milk Of Magnesia 30 Ml Oral.Susp) 30 ml PO DAILY PRN PRN Reason: Constipation Morphine Sulfate (Morphine Sulfate Oral Charlee 10 Mg/5 Ml Solution) 5 mg PO Q6H [facility] Last Admin: 09/05/21 04:50 Dose: Not Given Documented by: CLAUDIA Non-Admin Reason: Decreased Heart Rate Pharmacy Consult (Consult Rx Perform Med Rec) 1 each MISCELLANE ONCE PRN PRN Reason: Consult order Senna (Sennosides 8.6 Mg Tablet) 17.2 mg PO BID [facility] Last Admin: 09/05/21 09:45 Dose: 17.2 mg Documented by: LUCRETIA Tamsulosin HCl (Tamsulosin Hcl 0.4 Mg Capsule) 0.4 mg PO DAILY [facility] Last Admin: 09/05/21 09:49 Dose: Not Given Documented by: LUCRETIA Non-Admin Reason: pt unable to swallow capsule Ziprasidone (Ziprasidone 40 Mg Capsule) 40 mg PO DAILY [facility] Last Admin: 09/05/21 09:51 Dose: Not Given Documented by: LUCRETIA Non-Admin Reason: pt unable to swallow capsule Ziprasidone (Ziprasidone 40 Mg Capsule) 40 mg PO BEDTIME [facility] Last Admin: 09/04/21 20:33 Dose: Not Given Documented by: CLAUDIA Non-Admin Reason: Patient Condition Contraindication Comments: Pt unable to swallow capsule Labs CBC & Chem 7: 09/04/21 04:48 09/04/21 04:48 Labs: Laboratory Results - last 24 hr 04/17/22 04:48 TSH 0.72 Assessment and Plan (1) Elevated troponin: Status: Acute Plan 76 male to Female presented with hypoxia and nstemi ?Acute hypoxic respiratory failure secondary to aspiration pneumonia ?no evidence of sepsis continue ?IV unasyn, now off o2 CLAMP CARRIER OPERATOR appreciated, patient likely to aspirate on all consistencies, d/w HCP, would not want NPO or Gtube, so will continue pureed with pudding thick accepting risks for ongoing aspiration events for now. ?NSTEMI ?type II due to above echo with no WMA cardio following bradyarrythmia cardio appreciated, will decrease geodon worsening deny with pauses, now indicated for pacer - HCP aggreable npo after midnight, thoracic eval COPD stable hypothyroid synthroid (if tolerating po) schizophrenia and vascular dementia haldol, ziprasidone (okay to hold if cant swallow) BPH flomax if tolerating po, monitor for retention ?DM not on meds, a1c 5.2, likely resolved moderate protein calorie malnutrition due to dysphagia dvt prophylaxis - lovenox molst - DNR/DNI, okay for niv reason for continued hospitalization: significant bradyarrythemia on telemetry, plan for pacer Quality Stroke Does the patient have a stroke diagnosis?: No VTE Prior VTE?: No VTE Risk Level:: Medical - moderate - high VTE Device Contraindication: Treatment Not Indicated VTE Drug Contraindication: N/A - Med Ordered
--- NOTE | 2021-09-05 11:22 | PM.PNCARD ---
Subjective Subjective Date of Service: 09/05/21 Principal diagnosis: Bradycardia Interval history: Patient remains with junctional bradycardia with no sinus beats as well as pause up to 3.7 seconds. She remains awake. No obvious symptoms. Patient has no hypotension. Review of Systems Review of Systems Yes Unobtainable due to mental status Reports confusion Psychiatric: Reports confusion Physical Exam Vital Signs: Last Vital Signs Temp 98.6 F 09/05/21 07:27 Pulse 33 L 09/05/21 07:27 Resp 12 09/05/21 07:27 BP 139/72 09/05/21 07:27 Pulse Ox 93 09/05/21 07:27 BMI result Body Mass Index 18.8 Const General: cooperative, comfortable, alert, awake and confusion Nutritional Appearance: underweight and other (Frail elderly woman) Orientation/consciousness: confusion Neck Neck: Yes trachea midline, Yes supple and Yes no JVD Resp Effort & Inspection: decreased respiratory effort Auscultation: clear to auscultation bilaterally and diminished lung sounds Cardio Rate: bradycardic Rhythm: abnormal rhythm regularly irregular Heart sounds: S1 normal heart sound present and S2 normal heart sound present GI Auscultation: normal bowel sounds Neuro General: no focal motor deficits and confusion Extrem General: Yes no clubbing, cyanosis or edema Objective Labs and Meds Result diagrams: 09/04/21 04:48 09/04/21 04:48 Lab results: Laboratory Results - last 24 hr 09/04/21 04:48 TSH 0.72 Progress Note: A&P Assessment and plan (1) Bradycardia: Status: Acute Assessment and Plan: Bradycardia with junctional escape and sinus pauses of 3.7 seconds. This is suggestive of sinoatrial titus dysfunction. She has no reported symptoms hypertension although she has class 1 indication for pacing therapy. This was discussed with patient's healthcare proxy and they agree for a pacemaker placement. Consult thoracic surgery for pacemaker for tomorrow. She require dual chamber pacemaker. Patient does not comprehend the need for pacemaker. Consent should be obtained from the healthcare proxy. Overall prognosis is guarded given her other noncardiac issues Fall Risk Details Current Medications: Current Medications Acetaminophen (Acetaminophen 325 Mg Tablet) 650 mg PO Q6H PRN PRN Reason: Pain, Mild (Pain Scale 1-3) Aspirin (Aspirin 81 Mg Tab.Chew) 81 mg PO DAILY [facility] Last Admin: 09/05/21 09:45 Dose: 81 mg Documented by: Atorvastatin Calcium (Atorvastatin Calcium 80 Mg Tablet) 80 mg PO BEDTIME [facility] Last Admin: 09/04/21 20:33 Dose: 80 mg Documented by: Bisacodyl (Bisacodyl 10 Mg Supp.Rect) 10 mg [place] DAILY PRN PRN Reason: Constipation Enoxaparin Sodium (Enoxaparin Sodium 40 Mg/0.4 Ml Syringe) 40 mg SUBCUT DAILY [facility] Last Admin: 09/05/21 09:45 Dose: 40 mg Documented by: Finasteride (Finasteride 5 Mg Tablet) 5 mg PO DAILY [facility] Last Admin: 09/05/21 09:45 Dose: 5 mg Documented by: Guaifenesin (Guaifenesin 100 Mg/5 Ml Liquid) 10 ml PO Q4H PRN PRN Reason: Cough Haloperidol (Haloperidol 0.5 Mg Tablet) 0.5 mg PO BID [facility] Last Admin: 09/05/21 09:45 Dose: 0.5 mg Documented by: Ampicillin Sodium/Sulbactam (Sodium 1.5 gm/ Sodium Chloride) 100 mls @ 200 mls/hr IV Q6H [facility] Last Infusion: 09/05/21 05:34 Dose: Infused Documented by: Lactulose (Lactulose 20 Gm/30 Ml Solution) 20 gm PO DAILY [facility] Last Admin: 09/05/21 09:45 Dose: 20 gm Documented by: Levothyroxine Sodium (Levothyroxine Sodium 50 Mcg Tablet) 50 mcg PO DAILY@0630 [facility] Last Admin: 09/05/21 06:20 Dose: 50 mcg Documented by: Lorazepam (Lorazepam 0.5 Mg Tablet) 0.5 mg PO TID PRN PRN Reason: Anxiety Magnesium Hydroxide (Milk Of Magnesia 30 Ml Oral.Susp) 30 ml PO DAILY PRN PRN Reason: Constipation Morphine Sulfate (Morphine Sulfate Oral Charlee 10 Mg/5 Ml Solution) 5 mg PO Q6H [facility] Last Admin: 09/05/21 04:50 Dose: Not Given Documented by: Pharmacy Consult (Consult Rx Perform Med Rec) 1 each MISCELLANE ONCE PRN PRN Reason: Consult order Senna (Sennosides 8.6 Mg Tablet) 17.2 mg PO BID [facility] Last Admin: 09/05/21 09:45 Dose: 17.2 mg Documented by: Tamsulosin HCl (Tamsulosin Hcl 0.4 Mg Capsule) 0.4 mg PO DAILY [facility] Last Admin: 09/05/21 09:49 Dose: Not Given Documented by: Ziprasidone (Ziprasidone 40 Mg Capsule) 40 mg PO DAILY [facility] Last Admin: 09/05/21 09:51 Dose: Not Given Documented by: Ziprasidone (Ziprasidone 40 Mg Capsule) 40 mg PO BEDTIME [facility] Last Admin: 09/04/21 20:33 Dose: Not Given Documented by: Time Spent With Patient Time: Total time spent is greater than 50% in coordination of care (as documented) at patient's floor/unit and/or counseling patient: Progress Note: Quality Stroke Does the patient have a stroke diagnosis?: No Procedures Date of Service Date of Service: 09/05/21
[2021-09-05 11:44] VITALS: BP 102/58; PULSE 43; RESP 16; TEMP 36.3; O2SAT 93
--- NOTE | 2021-09-05 11:45 | MHC.SLORD ---
Speech Language Pathology Order Status: Attempted to see pt this am. Pt soundly asleep, did not rouse. Will re-attempt 09/06.
--- NOTE | 2021-09-05 13:36 | MHC.CLN ---
F/U DIET=PUREED WITH PUDDING THICK LIQUIDS. ADDED ENSURE PUDDING BID (340 KCAL, 8 G PROTEIN). NUTRITION DX MODERATE MALNUTRITION IN THE CONTEXT OF ACUTE ILLNESS. PO INTAKE ABOUT 25%. SOL=11 WITH HEALED PI TO COCCYX NOTED. CONTINUE TO FOLLOW INTAKE AND DIET TOLERANCE.
[2021-09-05 16:00] VITALS: BP 123/64; PULSE 33; RESP 16; TEMP 36.2; O2SAT 95
[2021-09-05 20:00] VITALS: BP 123/61; PULSE 38; RESP 18; TEMP 36.3; O2SAT 92
[2021-09-05] MEDS: Ziprasidone 40 MG CAPSULE PO (20:37)
[2021-09-05] MEDS: Atorvastatin Calcium 80 MG TABLET PO (20:39)
[2021-09-05 23:43] VITALS: BP 138/70; PULSE 36; RESP 18; TEMP 36.3; O2SAT 93
[2021-09-05] MEDS: Morphine Sulfate Oral Sol 10 MG/5 ML SOLUTION 5 MG PO (23:52)
[2021-09-06 03:16] VITALS: BP 98/55; PULSE 36; RESP 18; TEMP 36.6; O2SAT 100
[2021-09-06] MEDS: Ampicillin Sodium/Sulbactam Na 1.5 GM in 0.9 % Sodium Chloride 100 ML IV ×3 (05:47→16:22)
[2021-09-06 06:45] LABS: Hematocrit 31.5 % (37.0-47.0); Hemoglobin 9.8 g/dl (12.0-16.0); Mean Corpuscular HGB Conc 31.1 g/dl (31.0-35.0); Mean Corpuscular Hemoglobin 28.3 pg (27.0-33.0); Mean Platelet Volume 10.5 fL (9.4-12.3); Platelet Count 169 X10*3/uL (160-400); Red Blood Count 3.46 X10*6/uL (4.20-5.50); Red Cell Distribution Width 15.3 % (11.0-16.0); White Blood Count 4.4 X10*3/uL (4.8-10.8)
[2021-09-06 07:39] VITALS: BP 120/52; PULSE 38; RESP 18; TEMP 36.3; O2SAT 100
[2021-09-06 07:50] LABS: Anion Gap 11 (12-20); Blood Urea Nitrogen 18 mg/dL (9-16); Calcium 8.3 mg/dL (8.4-10.2); Carbon Dioxide 26 mmol/L (22-29); Chloride 114 mmol/L (96-108); Creatinine Clr Calc Pharmacy 54.6; Estimated Glomerular Filt Rate > 60; Glucose Fasting 89 mg/dL (60-99); Potassium 3.4 mmol/L (3.3-5.1); Sodium 148 mmol/L (135-145)
--- NOTE | 2021-09-06 09:33 | HO.PM.IMPN ---
Subjective Subjective Date of Service: 09/06/21 Interval History: cc: hypoxia interval history:no complaints Review of Systems Review of Systems: Yes Unobtainable due to mental condition Physical Exam Vital Signs: Vital Signs: Last Vital Signs Temp 97.3 F 09/06/21 07:39 Pulse 38 L 09/06/21 07:39 Resp 18 09/06/21 07:39 BP 120/52 L 09/06/21 07:39 Pulse Ox 100 09/06/21 07:39 BMI result Body Mass Index 18.8 GENERAL APPEARANCE:? Looks upset.? Speech issues and unable to understand what she is saying. NECK: no carotid bruit, no jugular venous distention. SKIN: no suspicious lesions, warm and dry. HEART: no murmurs, regular rate and rhythm.? Bradycardic LUNGS: clear to auscultation bilaterally. ABDOMEN: soft, nontender. EXTREMITIES: no edema. PERIPHERAL PULSES: equal. Objective Data Active Medications Acetaminophen (Acetaminophen 325 Mg Tablet) 650 mg PO Q6H PRN PRN Reason: Pain, Mild (Pain Scale 1-3) Aspirin (Aspirin 81 Mg Tab.Chew) 81 mg PO DAILY [facility] Last Admin: 09/06/21 09:27 Dose: Not Given Documented by: ТАТЬЯНА Non-Admin Reason: NPO Atorvastatin Calcium (Atorvastatin Calcium 80 Mg Tablet) 80 mg PO BEDTIME [facility] Last Admin: 09/05/21 20:39 Dose: 80 mg Documented by: JUVENTINO Bisacodyl (Bisacodyl 10 Mg Supp.Rect) 10 mg [place] DAILY PRN PRN Reason: Constipation Enoxaparin Sodium (Enoxaparin Sodium 40 Mg/0.4 Ml Syringe) 40 mg SUBCUT DAILY [facility] Last Admin: 09/06/21 09:27 Dose: Not Given Documented by: ТАТЬЯНА Non-Admin Reason: pre op Finasteride (Finasteride 5 Mg Tablet) 5 mg PO DAILY [facility] Last Admin: 09/06/21 09:27 Dose: Not Given Documented by: ТАТЬЯНА Non-Admin Reason: NPO Guaifenesin (Guaifenesin 100 Mg/5 Ml Liquid) 10 ml PO Q4H PRN PRN Reason: Cough Haloperidol (Haloperidol 0.5 Mg Tablet) 0.5 mg PO BID [facility] Last Admin: 09/06/21 09:27 Dose: Not Given Documented by: ТАТЬЯНА Non-Admin Reason: NPO Ampicillin Sodium/Sulbactam (Sodium 1.5 gm/ Sodium Chloride) 100 mls @ 200 mls/hr IV Q6H [facility] Last Infusion: 09/06/21 06:17 Dose: 0 mls/hr Documented by: JUVENTINO Lactulose (Lactulose 20 Gm/30 Ml Solution) 20 gm PO DAILY [facility] Last Admin: 09/06/21 09:27 Dose: Not Given Documented by: ТАТЬЯНА Non-Admin Reason: NPO Levothyroxine Sodium (Levothyroxine Sodium 50 Mcg Tablet) 50 mcg PO DAILY@0630 [facility] Last Admin: 09/06/21 05:48 Dose: Not Given Documented by: JUVENTINO Non-Admin Reason: NPO Lorazepam (Lorazepam 0.5 Mg Tablet) 0.5 mg PO TID PRN PRN Reason: Anxiety Magnesium Hydroxide (Milk Of Magnesia 30 Ml Oral.Susp) 30 ml PO DAILY PRN PRN Reason: Constipation Morphine Sulfate (Morphine Sulfate Oral Charlee 10 Mg/5 Ml Solution) 5 mg PO Q6H [facility] Last Admin: 09/06/21 05:48 Dose: Not Given Documented by: JUVENTINO Non-Admin Reason: NPO Pharmacy Consult (Consult Rx Perform Med Rec) 1 each MISCELLANE ONCE PRN PRN Reason: Consult order Senna (Sennosides 8.6 Mg Tablet) 17.2 mg PO BID [facility] Last Admin: 09/06/21 09:27 Dose: Not Given Documented by: ТАТЬЯНА Non-Admin Reason: NPO Tamsulosin HCl (Tamsulosin Hcl 0.4 Mg Capsule) 0.4 mg PO DAILY [facility] Last Admin: 09/06/21 09:27 Dose: Not Given Documented by: ТАТЬЯНА Non-Admin Reason: NPO Ziprasidone (Ziprasidone 40 Mg Capsule) 40 mg PO DAILY [facility] Last Admin: 09/06/21 09:27 Dose: Not Given Documented by: ТАТЬЯНА Non-Admin Reason: NPO Ziprasidone (Ziprasidone 40 Mg Capsule) 40 mg PO BEDTIME [facility] Last Admin: 09/05/21 20:37 Dose: 40 mg Documented by: JUVENTINO Labs CBC & Chem 7: 09/06/21 06:25 09/06/21 06:25 Labs: Laboratory Results - last 24 hr 09/06/21 09/06/21 09/06/21 06:25 06:25 06:25 MCV 91.0 MCH 28.3 MCHC 31.1 RDW 15.3 Plt Count 169 MPV 10.5 Absolute Nucleated RBC 0.000 Nucleated RBC % (auto) 0.0 Anion Gap 11 L Estim Creat Clear Calc 54.6 Estimated GFR > 60 Fasting Glucose 89 Calcium 8.3 L Blood Type A Negative Antibody Screen NEGATIVE Microbiology Microbiology Results: Microbiology 09/01/21 02:49 Blood Culture - Final Blood - Venous No growth after 5 days. 09/01/21 02:48 Blood Culture - Final Blood - Venous No growth after 5 days. Assessment and Plan (1) Elevated troponin: Status: Acute Plan 76 Male to Female presented with hypoxia and nstemi ?Acute hypoxic respiratory failure secondary to aspiration pneumonia ?no evidence of sepsis continue ?IV unasyn day 5, now off o2 RECORDS MANAGEMENT ASSISTANT appreciated, patient likely to aspirate on all consistencies, d/w HCP, would not want NPO or Gtube, so will continue pureed with pudding thick accepting risks for ongoing aspiration events for now. ?NSTEMI ?type II due to above echo with no WMA cardio following bradyarrythmia cardio appreciated, decreased geodon then had worsening deny with pauses, now indicated for pacer - HCP agreeable plan for pacer this afternoon COPD stable hypothyroid synthroid (if tolerating po) schizophrenia and vascular dementia haldol, ziprasidone BPH flomax if tolerating po, monitor for retention ?DM not on meds, a1c 5.2, likely resolved moderate protein calorie malnutrition due to dysphagia dvt prophylaxis - lovenox molst - DNR/DNI, okay for niv reason for continued hospitalization: significant bradyarrythemia on telemetry, plan for pacer Quality Stroke Does the patient have a stroke diagnosis?: No VTE Prior VTE?: No VTE Risk Level:: Medical - moderate - high VTE Device Contraindication: Treatment Not Indicated VTE Drug Contraindication: N/A - Med Ordered
--- NOTE | 2021-09-06 09:57 | P.PNCA_ITS ---
Subjective Subjective Date of Service: 09/06/21 Principal diagnosis: Bradycardia Interval history: Patient remains in junctional bradycardia. Overnight no significant pauses greater than 3 seconds. Patient remains asymptomatic. Plan for pacemaker placement later today. Review of Systems Review of Systems Yes Unobtainable due to mental status Reports confusion Psychiatric: Reports confusion Physical Exam Vital Signs: Last Vital Signs Temp 97.3 F 09/06/21 07:39 Pulse 38 L 09/06/21 07:39 Resp 18 09/06/21 07:39 BP 120/52 L 09/06/21 07:39 Pulse Ox 100 09/06/21 07:39 BMI result Body Mass Index 18.8 Const General: cooperative, comfortable, alert, awake and confusion Orientation/consciousness: confusion Neck Neck: Yes trachea midline, Yes supple and Yes no JVD Resp Effort & Inspection: decreased respiratory effort Auscultation: clear to auscultation bilaterally Cardio Jugular venous distension: no JVD Rate: regular rate Rhythm: abnormal rhythm regularly irregular Heart sounds: S1 normal heart sound present, S2 normal heart sound present, no click, no gallops and no murmurs Neuro General: confusion Objective Labs and Meds Result diagrams: 09/06/21 06:25 09/06/21 06:25 Lab results: Laboratory Results - last 24 hr 09/06/21 09/06/21 09/06/21 06:25 06:25 06:25 WBC 4.4 L RBC 3.46 L Hgb 9.8 L Hct 31.5 L MCV 91.0 MCH 28.3 MCHC 31.1 RDW 15.3 Plt Count 169 MPV 10.5 Absolute Nucleated RBC 0.000 Nucleated RBC % (auto) 0.0 Sodium 148 H Potassium 3.4 D Chloride 114 H Carbon Dioxide 26 Anion Gap 11 L BUN 18 H Creatinine 0.67 Estim Creat Clear Calc 54.6 Estimated GFR > 60 Fasting Glucose 89 Calcium 8.3 L Blood Type A Negative Antibody Screen NEGATIVE Progress Note: A&P Assessment and plan (1) Sick sinus syndrome: Status: Acute Assessment and Plan: Incidentally noted sick sinus syndrome with significant bradycardia as well as pauses in this elderly woman. Class 1 indication for pacemaker. This was discussed by hospitalist team with the healthcare proxy and they are agreeable to pursue with pacemaker placement. Seen by thoracic surgeon scheduled for undergoing dual-chamber pacemaker later today. Patient not aware of the findings and not able to participate in decision making. Consent should be obtained from the healthcare proxy. Will sign of the case after pacemaker placement. If everything is okay by tomorrow can be discharged from cardiac perspective Fall Risk Details Current Medications: Current Medications Acetaminophen (Acetaminophen 325 Mg Tablet) 650 mg PO Q6H PRN PRN Reason: Pain, Mild (Pain Scale 1-3) Aspirin (Aspirin 81 Mg Tab.Chew) 81 mg PO DAILY [facility] Last Admin: 09/06/21 09:27 Dose: Not Given Documented by: Atorvastatin Calcium (Atorvastatin Calcium 80 Mg Tablet) 80 mg PO BEDTIME [facility] Last Admin: 09/05/21 20:39 Dose: 80 mg Documented by: Bisacodyl (Bisacodyl 10 Mg Supp.Rect) 10 mg [place] DAILY PRN PRN Reason: Constipation Enoxaparin Sodium (Enoxaparin Sodium 40 Mg/0.4 Ml Syringe) 40 mg SUBCUT DAILY [facility] Last Admin: 09/06/21 09:27 Dose: Not Given Documented by: Finasteride (Finasteride 5 Mg Tablet) 5 mg PO DAILY [facility] Last Admin: 09/06/21 09:27 Dose: Not Given Documented by: Guaifenesin (Guaifenesin 100 Mg/5 Ml Liquid) 10 ml PO Q4H PRN PRN Reason: Cough Haloperidol (Haloperidol 0.5 Mg Tablet) 0.5 mg PO BID [facility] Last Admin: 09/06/21 09:27 Dose: Not Given Documented by: Ampicillin Sodium/Sulbactam (Sodium 1.5 gm/ Sodium Chloride) 100 mls @ 200 mls/hr IV Q6H [facility] Last Infusion: 09/06/21 06:17 Dose: Infused Documented by: Lactulose (Lactulose 20 Gm/30 Ml Solution) 20 gm PO DAILY [facility] Last Admin: 09/06/21 09:27 Dose: Not Given Documented by: Levothyroxine Sodium (Levothyroxine Sodium 50 Mcg Tablet) 50 mcg PO DAILY@0630 [facility] Last Admin: 09/06/21 05:48 Dose: Not Given Documented by: Lorazepam (Lorazepam 0.5 Mg Tablet) 0.5 mg PO TID PRN PRN Reason: Anxiety Magnesium Hydroxide (Milk Of Magnesia 30 Ml Oral.Susp) 30 ml PO DAILY PRN PRN Reason: Constipation Morphine Sulfate (Morphine Sulfate Oral Charlee 10 Mg/5 Ml Solution) 5 mg PO Q6H [facility] Last Admin: 09/06/21 05:48 Dose: Not Given Documented by: Pharmacy Consult (Consult Rx Perform Med Rec) 1 each MISCELLANE ONCE PRN PRN Reason: Consult order Senna (Sennosides 8.6 Mg Tablet) 17.2 mg PO BID [facility] Last Admin: 09/06/21 09:27 Dose: Not Given Documented by: Tamsulosin HCl (Tamsulosin Hcl 0.4 Mg Capsule) 0.4 mg PO DAILY [facility] Last Admin: 09/06/21 09:27 Dose: Not Given Documented by: Ziprasidone (Ziprasidone 40 Mg Capsule) 40 mg PO DAILY [facility] Last Admin: 09/06/21 09:27 Dose: Not Given Documented by: Ziprasidone (Ziprasidone 40 Mg Capsule) 40 mg PO BEDTIME [facility] Last Admin: 09/05/21 20:37 Dose: 40 mg Documented by: Time Spent With Patient Time: Total time spent is greater than 50% in coordination of care (as documented) at patient's floor/unit and/or counseling patient: Progress Note: Quality Stroke Does the patient have a stroke diagnosis?: No Procedures Date of Service Date of Service: 09/06/21
--- NOTE | 2021-09-06 11:22 | MHC.SLORD ---
Speech Language Pathology Order Status: Pt NPO today for pacemaker placement. Sent secure text to nutrition re: need for pudding thick supplements (found ensure at bedside this a.m.).
[2021-09-06 12:00] VITALS: BP 123/81; PULSE 62; RESP 19; TEMP 36.9; O2SAT 98
--- NOTE | 2021-09-06 14:05 | MHC.CLN ---
NUTRITION CONSULT FOR SKIN AND ASPIRATION PRECAUTIONS. PATIENT IS CURRENTLY NPO AWAITING PACER PROCEDURE. PRIOR DIET=PUREED WITH PUDDING THICK LIQUIDS. ADDED ENSURE PUDDING BID (340 KCAL, 8 G PROTEIN). KITCHEN AWARE OF NEED FOR PUDDING THICK LIQUIDS AND SUPPLEMENTS. STAGE I TO SOL SAMAY[place]=10. CONTINUE TO FOLLOW DIET ADVANCEMENT, INTAKE, AND DIET TOLERANCE.
--- NOTE | 2021-09-06 14:15 | MHC.CM.PN ---
EMR reviewed, per multidisciplinary rounds and cardiology plan for pacer to be plaed today and anticipate d/c back to [facility] tomorrow 09/07, cm will cont to follow d/c needs.
[2021-09-06 15:41] VITALS: BP 125/55; PULSE 56; RESP 20; TEMP 36.4
[2021-09-06 19:49] VITALS: BP 102/56; PULSE 43; RESP 18; TEMP 36.9; O2SAT 100
[2021-09-06] MEDS: Ziprasidone 40 MG CAPSULE PO (19:55)
[2021-09-06] MEDS: HaloperidoL 0.5 MG TABLET PO (19:55)
[2021-09-06] MEDS: Sennosides 8.6 MG TABLET 17.2 MG PO (19:55)
[2021-09-06] MEDS: Atorvastatin Calcium 80 MG TABLET PO (19:55)
[2021-09-06 23:52] VITALS: BP 111/54; PULSE 69; RESP 16; TEMP 36.3; O2SAT 93
[2021-09-07] VITALS (10 sets, daily range): BP systolic 100–144; BP diastolic 55–87; PULSE 38–75; RESP 14–20; TEMP 36.1–36.7; O2SAT 91–100
[2021-09-07] MEDS: Ampicillin Sodium/Sulbactam Na 1.5 GM in 0.9 % Sodium Chloride 100 ML IV ×4 (00:02→22:23)
[2021-09-07] MEDS: Levothyroxine Sodium 50 MCG TABLET PO (05:52)
[2021-09-07] MEDS: Dextrose 5 % 1,000 ML 75 ML IVCONT ×2 (08:45→22:23)
--- NOTE | 2021-09-07 09:55 | MHC.SLORD ---
Speech Language Pathology Order Status: FURRIER DESIGNER confirmed w/ MD via [facility]- Patient is still NPO for pacemaker procedure. Please refer to previous FURRIER DESIGNER notes for recommendations once patient is cleared for PO- After completion of documentation of BSE, MD was in contact w/HCP who declined NPO/Alternative Feeding recommendation, is aware of risk of high risk of aspiration, but wants PT to continue on PO of Puree (NDD1) and PUDDING THICK liquids, which was ordered by . Pt will need FULL ASSIST/SUPERVISION at all meals, w/close monitor for aspirations signs, including maintaining O2 at safe levels. Pt benefits from Chin tuck and double swallow on all presentations of PO, requires oral check before presenting additional food. Please assure that PT is alert and engaged in meal/med administration, and minimize distractions, including speaking while eating. FURRIER DESIGNER will follow, re-assess to determine safety of additional FF Water Protocol to aid hydration. FURRIER DESIGNER will continue to follow.
--- NOTE | 2021-09-07 11:19 | P.PNCA_ITS ---
Subjective Subjective Date of Service: 09/07/21 Principal diagnosis: Bradycardia Interval history: No cardiac symptoms to report. Patient remains with junctional bradycardia, unfortunately did not undergo pacemaker placement yesterday Review of Systems Review of Systems Yes Unobtainable due to mental status Reports confusion Psychiatric: Reports confusion Physical Exam Vital Signs: Last Vital Signs Temp 97.3 F 09/07/21 07:43 Pulse 43 L 09/07/21 07:43 Resp 16 09/07/21 07:43 BP 107/57 L 09/07/21 07:43 Pulse Ox 91 L 09/07/21 07:43 BMI result Body Mass Index 18.8 Const General: cooperative, comfortable, alert, awake and confusion Orientation/consciousness: confusion Neck Neck: Yes trachea midline and Yes supple Resp Effort & Inspection: decreased respiratory effort Auscultation: clear to auscultation bilaterally Cardio Palpation: normal PMI Rate: regular rate Rhythm: regular rhythm Heart sounds: S1 normal heart sound present, S2 normal heart sound present, no click, no gallops and no murmurs Neuro General: no focal motor deficits and confusion Objective Labs and Meds Result diagrams: 09/06/21 06:25 09/06/21 06:25 Progress Note: A&P Assessment and plan (1) Sick sinus syndrome: Status: Acute Assessment and Plan: Patient with sick sinus syndrome without any obvious symptoms with significant pauses as well as bradycardia which is persistent. Class 1 indication for pace maker. Should undergo dual-chamber pacemaker placement as per her healthcare proxy his wishes. Patient cannot consent for the same. Hopefully this can be done today. Avoid rate lowering medications. Will sign of the case. Fall Risk Details Current Medications: Current Medications Acetaminophen (Acetaminophen 325 Mg Tablet) 650 mg PO Q6H PRN PRN Reason: Pain, Mild (Pain Scale 1-3) Aspirin (Aspirin 81 Mg Tab.Chew) 81 mg PO DAILY [facility]CLUD[facility] Last Admin: 09/07/21 08:54 Dose: Not Given Documented by: Atorvastatin Calcium (Atorvastatin Calcium 80 Mg Tablet) 80 mg PO BEDTIME COUNT [facility]CLUDES [facility] Last Admin: 09/06/21 19:55 Dose: 80 mg Documented by: Bisacodyl (Bisacodyl 10 Mg Supp.Rect) 10 mg [place] DAILY PRN PRN Reason: Constipation Enoxaparin Sodium (Enoxaparin Sodium 40 Mg/0.4 Ml Syringe) 40 mg SUBCUT DAILY [facility] Last Admin: 09/07/21 08:54 Dose: Not Given Documented by: Finasteride (Finasteride 5 Mg Tablet) 5 mg PO DAILY [facility] Last Admin: 09/07/21 08:55 Dose: Not Given Documented by: Guaifenesin (Guaifenesin 100 Mg/5 Ml Liquid) 10 ml PO Q4H PRN PRN Reason: Cough Haloperidol (Haloperidol 0.5 Mg Tablet) 0.5 mg PO BID COUNT [facility]CLUD[facility] Last Admin: 09/07/21 08:55 Dose: Not Given Documented by: Ampicillin Sodium/Sulbactam (Sodium 1.5 gm/ Sodium Chloride) 100 mls @ 200 mls/hr IV Q6H COUNT [facility]CLUDES [facility] Last Infusion: 09/07/21 07:26 Dose: Infused Documented by: Dextrose (D5w) 1,000 mls @ 75 mls/hr IVCONT .[id number] COUNT [facility]CLUDES [facility] Last Admin: 09/07/21 08:45 Dose: 75 mls/hr Documented by: Lactulose (Lactulose 20 Gm/30 Ml Solution) 20 gm PO DAILY [facility] Last Admin: 09/07/21 08:55 Dose: Not Given Documented by: Levothyroxine Sodium (Levothyroxine Sodium 50 Mcg Tablet) 50 mcg PO DAILY@0630 [facility] Last Admin: 09/07/21 05:52 Dose: 50 mcg Documented by: Lorazepam (Lorazepam 0.5 Mg Tablet) 0.5 mg PO TID PRN PRN Reason: Anxiety Magnesium Hydroxide (Milk Of Magnesia 30 Ml Oral.Susp) 30 ml PO DAILY PRN PRN Reason: Constipation Morphine Sulfate (Morphine Sulfate Oral Charlee 10 Mg/5 Ml Solution) 5 mg PO Q6H COUNT [facility]CLUD[facility] Last Admin: 09/07/21 05:45 Dose: Not Given Documented by: Pharmacy Consult (Consult Rx Perform Med Rec) 1 each MISCELLANE ONCE PRN PRN Reason: Consult order Senna (Sennosides 8.6 Mg Tablet) 17.2 mg PO BID [facility]CLUD[facility] Last Admin: 09/07/21 08:55 Dose: Not Given Documented by: Tamsulosin HCl (Tamsulosin Hcl 0.4 Mg Capsule) 0.4 mg PO DAILY [facility] Last Admin: 09/07/21 08:55 Dose: Not Given Documented by: Ziprasidone (Ziprasidone 40 Mg Capsule) 40 mg PO DAILY [facility] Last Admin: 09/07/21 08:55 Dose: Not Given Documented by: Ziprasidone (Ziprasidone 40 Mg Capsule) 40 mg PO BEDTIME [place] Last Admin: 09/06/21 19:55 Dose: 40 mg Documented by: Time Spent With Patient Time: Total time spent is greater than 50% in coordination of care (as documented) at patient's floor/unit and/or counseling patient: Progress Note: Quality Stroke Does the patient have a stroke diagnosis?: No Procedures Date of Service Date of Service: 09/07/21
--- NOTE | 2021-09-07 11:59 | P.PNIM_ITS ---
Subjective Subjective Date of Service: 09/07/21 Interval History: the patient was seen and evaluated this morning Laying in bed, alert and smiling but not verbal episodes of bradycardia overnight No reported other overnight events. Review of Systems Unable to provide any meaningful answers but denies any complaints like chest pain, difficulty breathing or change in bowel habit among others Physical Exam Vital Signs: Vital Signs: Last Vital Signs Temp 98.0 F 09/07/21 11:34 Pulse 38 L 09/07/21 11:34 Resp 16 09/07/21 11:34 BP 130/72 09/07/21 11:34 Pulse Ox 92 09/07/21 11:34 BMI result Body Mass Index 18.8 Const: Other: Constitutional : Alert, interactive, not in distress Neck : Normal inspection, Supple Cardiovascular : RRR, no JVP, no lower extremity edema, bradycardia Respiratory : fair bilateral air entry, no crackles, wheezes or rhonchi Gastrointestinal: soft, lax, Normal bowel sounds, Non tender Skin : Warm, Dry Neurological : Alert, nonverbal to check orientation, No focal deficit identified Objective Data Active Medications Acetaminophen (Acetaminophen 325 Mg Tablet) 650 mg PO Q6H PRN PRN Reason: Pain, Mild (Pain Scale 1-3) Aspirin (Aspirin 81 Mg Tab.Chew) 81 mg PO DAILY [facility] Last Admin: 09/07/21 08:54 Dose: Not Given Documented by: PRISCA Non-Admin Reason: NPO Atorvastatin Calcium (Atorvastatin Calcium 80 Mg Tablet) 80 mg PO BEDTIME [facility] Last Admin: 09/06/21 19:55 Dose: 80 mg Documented by: AUBREY Bisacodyl (Bisacodyl 10 Mg Supp.Rect) 10 mg [place] DAILY PRN PRN Reason: Constipation Enoxaparin Sodium (Enoxaparin Sodium 40 Mg/0.4 Ml Syringe) 40 mg SUBCUT DAILY [facility] Last Admin: 09/07/21 08:54 Dose: Not Given Documented by: PRISCA Non-Admin Reason: surgery Finasteride (Finasteride 5 Mg Tablet) 5 mg PO DAILY [facility] Last Admin: 09/07/21 08:55 Dose: Not Given Documented by: PRISCA Non-Admin Reason: NPO Guaifenesin (Guaifenesin 100 Mg/5 Ml Liquid) 10 ml PO Q4H PRN PRN Reason: Cough Haloperidol (Haloperidol 0.5 Mg Tablet) 0.5 mg PO BID [facility] Last Admin: 09/07/21 08:55 Dose: Not Given Documented by: PRISCA Non-Admin Reason: NPO Ampicillin Sodium/Sulbactam (Sodium 1.5 gm/ Sodium Chloride) 100 mls @ 200 mls/hr IV Q6H [facility] Last Infusion: 09/07/21 07:26 Dose: 0 mls/hr Documented by: PRISCA Dextrose (D5w) 1,000 mls @ 75 mls/hr IVCONT .[id number] [facility] Last Admin: 09/07/21 08:45 Dose: 75 mls/hr Documented by: PRISCA Lactulose (Lactulose 20 Gm/30 Ml Solution) 20 gm PO DAILY [facility] Last Admin: 09/07/21 08:55 Dose: Not Given Documented by: PRISCA Non-Admin Reason: NPO Levothyroxine Sodium (Levothyroxine Sodium 50 Mcg Tablet) 50 mcg PO DAILY@0630 [facility] Last Admin: 09/07/21 05:52 Dose: 50 mcg Documented by: AUBREY Lorazepam (Lorazepam 0.5 Mg Tablet) 0.5 mg PO TID PRN PRN Reason: Anxiety Magnesium Hydroxide (Milk Of Magnesia 30 Ml Oral.Susp) 30 ml PO DAILY PRN PRN Reason: Constipation Morphine Sulfate (Morphine Sulfate Oral Charlee 10 Mg/5 Ml Solution) 5 mg PO Q6H [facility] Last Admin: 09/07/21 05:45 Dose: Not Given Documented by: AUBREY Non-Admin Reason: Patient Refused Pharmacy Consult (Consult Rx Perform Med Rec) 1 each MISCELLANE ONCE PRN PRN Reason: Consult order Senna (Sennosides 8.6 Mg Tablet) 17.2 mg PO BID [facility] Last Admin: 09/07/21 08:55 Dose: Not Given Documented by: PRISCA Non-Admin Reason: NPO Tamsulosin HCl (Tamsulosin Hcl 0.4 Mg Capsule) 0.4 mg PO DAILY [facility] Last Admin: 09/07/21 08:55 Dose: Not Given Documented by: PRISCA Non-Admin Reason: NPO Ziprasidone (Ziprasidone 40 Mg Capsule) 40 mg PO DAILY [facility] Last Admin: 09/07/21 08:55 Dose: Not Given Documented by: PRISCA Non-Admin Reason: NPO Ziprasidone (Ziprasidone 40 Mg Capsule) 40 mg PO BEDTIME [place] Last Admin: 09/06/21 19:55 Dose: 40 mg Documented by: AUBREY Labs CBC & Chem 7: 09/06/21 06:25 09/06/21 06:25 Assessment and Plan (1) Sick sinus syndrome: Status: Acute (2) Aspiration pneumonia: Status: Acute Plan 76 Male to Female presented with hypoxia and nstemi ?Acute hypoxic respiratory failure secondary to aspiration pneumonia ?no evidence of sepsis continue ?IV unasyn day 6, to continue while inpatient RN UNIT MANAGER appreciated, patient likely to aspirate on all consistencies, d/w HCP, would not want NPO or Gtube, so will continue pureed with pudding thick accepting risks for ongoing aspiration events for now. ?NSTEMI type II due to above echo with no WMA cardio following bradyarrythmia cardio appreciated, decreased geodon with plan for pacer placement plan for pacer today COPD stable hypothyroid synthroid (if tolerating po) schizophrenia and vascular dementia haldol, ziprasidone BPH flomax if tolerating po, monitor for retention moderate protein calorie malnutrition due to dysphagia dvt prophylaxis - lovenox molst - DNR/DNI, okay for niv reason for continued hospitalization: significant bradyarrythemia on telemetry, plan for pacer placement Quality Stroke Does the patient have a stroke diagnosis?: No VTE Prior VTE?: No VTE Risk Level:: Medical - moderate - high VTE Device Contraindication: Treatment Not Indicated VTE Drug Contraindication: N/A - Med Ordered
--- NOTE | 2021-09-07 12:23 | MHC.CLN ---
F/U PATIENT IS CURRENTLY NPO AWAITING PACER PROCEDURE. PRIOR DIET=PUREED WITH PUDDING THICK LIQUIDS. ADDED ENSURE PUDDING BID (340 KCAL, 8 G PROTEIN). STAGE I TO SOL SAMAYOA=10. CONTINUE TO FOLLOW DIET ADVANCEMENT, INTAKE, AND DIET TOLERANCE.
--- NOTE | 2021-09-07 14:37 | P.CONAN_ITS ---
HPI - Anesthesia Eval Consult details Narrative: 76 F for pacemaker ex smoker , quit 6 months ago. Respiratory failure secondory to Aspiration pneumonia, currently on IV antibiotics . NSTEMI , Bradycardia , Schizophrenia I had a long and detailed discussion with the HCP. Given her comorbidities she is at high risk for serious cardiovascular and respiratory complications during the perioperative period . [facility] Active Problems Active Problems: All Active Problems (Updated 09/06/21 @ 10:01 by Sancho Larson MD) Sick sinus syndrome (Acute) Bradycardia (Acute) Elevated troponin (Acute) Aspiration pneumonia (Acute) Acute respiratory failure (Acute) Past Medical History Medical History COPD (chronic obstructive pulmonary disease) Hypothyroidism Schizophrenia Transgender Vascular dementia Family History Family history of problems with anesthesia: No Surgical History History of Problems with Anesthesia: No Social History Social History Household Members: Unknown / Unable to assess Housing: [facility] Unable to assess alcohol history related to: Unable to respond Patient Tobacco Use Status: Former Tobacco user Tobacco use type: Cigarette service: No Current occupational status: retired [employer] Allergies Allergy/AdvReac Type Severity Reaction Status Date / Time No Known Allergies Allergy Verified 09/07/21 14:41 Active Medications: Current Medications Acetaminophen (Acetaminophen 325 Mg Tablet) 650 mg PO Q6H PRN PRN Reason: Pain, Mild (Pain Scale 1-3) Aspirin (Aspirin 81 Mg Tab.Chew) 81 mg PO DAILY [facility] Last Admin: 09/07/21 08:54 Dose: Not Given Documented by: Atorvastatin Calcium (Atorvastatin Calcium 80 Mg Tablet) 80 mg PO BEDTIME [facility] Last Admin: 09/06/21 19:55 Dose: 80 mg Documented by: Bisacodyl (Bisacodyl 10 Mg Supp.Rect) 10 mg [place] DAILY PRN PRN Reason: Constipation Enoxaparin Sodium (Enoxaparin Sodium 40 Mg/0.4 Ml Syringe) 40 mg SUBCUT DAILY [facility] Last Admin: 09/07/21 08:54 Dose: Not Given Documented by: Finasteride (Finasteride 5 Mg Tablet) 5 mg PO DAILY [facility] Last Admin: 09/07/21 08:55 Dose: Not Given Documented by: Guaifenesin (Guaifenesin 100 Mg/5 Ml Liquid) 10 ml PO Q4H PRN PRN Reason: Cough Haloperidol (Haloperidol 0.5 Mg Tablet) 0.5 mg PO BID [facility] Last Admin: 09/07/21 08:55 Dose: Not Given Documented by: Ampicillin Sodium/Sulbactam (Sodium 1.5 gm/ Sodium Chloride) 100 mls @ 200 mls/hr IV Q6H [facility] Last Infusion: 09/07/21 14:32 Dose: Infused Documented by: Dextrose (D5w) 1,000 mls @ 75 mls/hr IVCONT .[id number] [facility] Last Admin: 09/07/21 08:45 Dose: 75 mls/hr Documented by: Lactulose (Lactulose 20 Gm/30 Ml Solution) 20 gm PO DAILY [facility] Last Admin: 09/07/21 08:55 Dose: Not Given Documented by: Levothyroxine Sodium (Levothyroxine Sodium 50 Mcg Tablet) 50 mcg PO DAILY@0630 [facility] Last Admin: 09/07/21 05:52 Dose: 50 mcg Documented by: Lorazepam (Lorazepam 0.5 Mg Tablet) 0.5 mg PO TID PRN PRN Reason: Anxiety Magnesium Hydroxide (Milk Of Magnesia 30 Ml Oral.Susp) 30 ml PO DAILY PRN PRN Reason: Constipation Morphine Sulfate (Morphine Sulfate Oral Charlee 10 Mg/5 Ml Solution) 5 mg PO Q6H [facility] Last Admin: 09/07/21 13:33 Dose: Not Given Documented by: Pharmacy Consult (Consult Rx Perform Med Rec) 1 each MISCELLANE ONCE PRN PRN Reason: Consult order Senna (Sennosides 8.6 Mg Tablet) 17.2 mg PO BID [facility] Last Admin: 09/07/21 08:55 Dose: Not Given Documented by: Tamsulosin HCl (Tamsulosin Hcl 0.4 Mg Capsule) 0.4 mg PO DAILY [facility] Last Admin: 09/07/21 08:55 Dose: Not Given Documented by: Ziprasidone (Ziprasidone 40 Mg Capsule) 40 mg PO DAILY [facility] Last Admin: 09/07/21 08:55 Dose: Not Given Documented by: Ziprasidone (Ziprasidone 40 Mg Capsule) 40 mg PO BEDTIME [facility] Last Admin: 09/06/21 19:55 Dose: 40 mg Documented by: Home Medications Medication Instructions Recorded Confirmed Last Taken Type acetaminophen 325 mg tablet 650 mg PO Q4H PRN 09/01/21 09/01/21 Unknown History acetaminophen 650 mg rectal 650 mg MN Q4H PRN 09/01/21 09/01/21 Unknown History suppository bisacodyl 10 mg rectal suppository 10 mg [place] DAILY PRN 09/01/21 09/01/21 Unknown History finasteride 5 mg tablet 1 tab PO DAILY 09/01/21 09/01/21 08/31/21 History guaifenesin 100 mg/5 mL oral liquid 200 mg PO Q4H PRN 09/01/21 09/01/21 Unknown History haloperidol 0.5 mg tablet 1 tab PO BID 09/01/21 09/01/21 08/31/21 History lactulose 10 gram/15 mL oral 30 ml PO DAILY 09/01/21 09/01/21 08/31/21 History solution (Enulose) levothyroxine 50 mcg tablet 1 tab PO DAILY 09/01/21 09/01/21 08/31/21 History lorazepam 0.5 mg tablet 1 tab PO TID PRN 09/01/21 09/01/21 08/31/21 History magnesium hydroxide 400 mg/5 mL 30 ml PO DAILY PRN 09/01/21 09/01/21 Unknown History oral suspension (Milk of Magnesia) morphine concentrate 100 mg/5 mL 5 mg PO Q6H 09/01/21 09/01/21 08/31/21 History (20 mg/mL) oral solution sennosides 8.6 mg tablet (senna) 17.2 mg PO BID 09/01/21 09/01/21 08/31/21 History tamsulosin 0.4 mg capsule 1 cap PO DAILY 09/01/21 09/01/21 08/31/21 History Exam Exam Date and Time: September 07, 2021 1437 Height,Weight and Vital Signs: Height 5 ft 3 in Weight 48.4 kg Last Vital Signs Temp 98.0 F 09/07/21 11:34 Pulse 38 L 09/07/21 11:34 Resp 16 09/07/21 11:34 BP 130/72 09/07/21 11:34 Pulse Ox 92 09/07/21 11:34 Pertinent Lab Results Pertinent Lab Results: Laboratory Tests 09/01/21 09/01/21 09/01/21 01:42 01:42 01:42 WBC RBC Hgb Hct MCV MCH MCHC RDW Plt Count MPV Immature Gran % (Auto) Neut % (Auto) Lymph % (Auto) Imperial % (Auto) Eos % (Auto) Baso % (Auto) Lymph # (Auto) Imperial # (Auto) Eos # (Auto) Baso # (Auto) Abs Immat Gran (auto) Absolute Neuts (auto) Absolute Nucleated RBC Nucleated RBC % (auto) Smear Tech's Comments PT 13.3 H INR 1.2 H VBG pH VBG pCO2 VBG pO2 VBG HCO3 VBG O2 Saturation VBG Base Excess Sodium 134 L Potassium 3.7 Chloride 102 Carbon Dioxide 22 Anion Gap 14 BUN 12 Creatinine 0.80 Estim Creat Clear Calc 45.6 Estimated GFR > 60 Random Glucose 185 H Fasting Glucose Estimat Average Glucose Hemoglobin A1c % Lactic Acid Calcium 8.6 Total Bilirubin 0.5 Direct Bilirubin 0.2 AST 24 ALT 15 Alkaline Phosphatase 47 Troponin I High Sens B-Natriuretic Peptide Total Protein 5.8 L Albumin 3.2 L TSH COVID-19 (ROSY) COVID-19 Clin Com Influenza Type A (SONIA) Negative Influenza Type B (SONIA) Negative Influenza A & B Note See Note Blood Type Antibody Screen 09/01/21 09/01/21 09/01/21 01:42 02:48 02:48 WBC 6.1 RBC 3.67 L Hgb 10.5 L Hct 33.1 L MCV 90.2 MCH 28.6 MCHC 31.7 RDW 14.8 Plt Count 199 MPV 9.3 L Immature Gran % (Auto) 0.2 Neut % (Auto) 92.1 H Lymph % (Auto) 2.1 L Imperial % (Auto) 4.9 Eos % (Auto) 0.5 Baso % (Auto) 0.2 Lymph # (Auto) 0.1 L Imperial # (Auto) 0.3 Eos # (Auto) 0.0 Baso # (Auto) 0.0 Abs Immat Gran (auto) 0.01 Absolute Neuts (auto) 5.6 Absolute Nucleated RBC 0.000 Nucleated RBC % (auto) 0.0 Smear Tech's Comments VERIFIED PT INR VBG pH VBG pCO2 VBG pO2 VBG HCO3 VBG O2 Saturation VBG Base Excess Sodium Potassium Chloride Carbon Dioxide Anion Gap BUN Creatinine Estim Creat Clear Calc Estimated GFR Random Glucose Fasting Glucose Estimat Average Glucose Hemoglobin A1c % Lactic Acid 1.4 Calcium Total Bilirubin Direct Bilirubin AST ALT Alkaline Phosphatase Troponin I High Sens B-Natriuretic Peptide Total Protein Albumin TSH COVID-19 (ROSY) Negative COVID-19 Clin Com See Note Influenza Type A (SONIA) Influenza Type B (SONIA) Influenza A & B Note Blood Type Antibody Screen 09/01/21 09/01/21 09/01/21 02:48 02:48 02:51 WBC RBC Hgb Hct MCV MCH MCHC RDW Plt Count MPV Immature Gran % (Auto) Neut % (Auto) Lymph % (Auto) Imperial % (Auto) Eos % (Auto) Baso % (Auto) Lymph # (Auto) Imperial # (Auto) Eos # (Auto) Baso # (Auto) Abs Immat Gran (auto) Absolute Neuts (auto) Absolute Nucleated RBC Nucleated RBC % (auto) Smear Tech's Comments PT INR VBG pH 7.36 VBG pCO2 44 VBG pO2 44 VBG HCO3 25 VBG O2 Saturation 69.0 VBG Base Excess 0.0 Sodium Potassium Chloride Carbon Dioxide Anion Gap BUN Creatinine Estim Creat Clear Calc Estimated GFR Random Glucose Fasting Glucose Estimat Average Glucose 103 Hemoglobin A1c % 5.2 Lactic Acid Calcium Total Bilirubin Direct Bilirubin AST ALT Alkaline Phosphatase Troponin I High Sens 733.8 H* B-Natriuretic Peptide 86 Total Protein Albumin TSH COVID-19 (ROSY) COVID-19 Clin Com Influenza Type A (SONIA) Influenza Type B (SONIA) Influenza A & B Note Blood Type Antibody Screen 09/01/21 09/02/21 09/02/21 10:04 06:57 06:57 WBC 4.9 RBC 3.46 L Hgb 10.0 L Hct 31.3 L MCV 90.5 MCH 28.9 MCHC 31.9 RDW 15.1 Plt Count 194 MPV 9.9 Immature Gran % (Auto) Neut % (Auto) Lymph % (Auto) Imperial % (Auto) Eos % (Auto) Baso % (Auto) Lymph # (Auto) [place] # (Auto) Eos # (Auto) Baso # (Auto) Abs Immat Gran (auto) Absolute Neuts (auto) Absolute Nucleated RBC 0.000 Nucleated RBC % (auto) 0.0 Smear Tech's Comments PT INR VBG pH VBG pCO2 VBG pO2 VBG HCO3 VBG O2 Saturation VBG Base Excess Sodium 137 Potassium 4.1 Chloride 104 Carbon Dioxide 28 Anion Gap 9 L BUN 15 Creatinine 0.66 Estim Creat Clear Calc 55.3 Estimated GFR > 60 Random Glucose Fasting Glucose 108 H Estimat Average Glucose Hemoglobin A1c % Lactic Acid Calcium 8.5 Total Bilirubin Direct Bilirubin AST ALT Alkaline Phosphatase Troponin I High Sens 1468.0 H* D B-Natriuretic Peptide Total Protein Albumin TSH COVID-19 (ROSY) COVID-19 Clin Com Influenza Type A (SONIA) Influenza Type B (SONIA) Influenza A & B Note Blood Type Antibody Screen 09/04/21 09/04/21 09/06/21 04:48 04:48 06:25 WBC 3.9 L 4.4 L RBC 3.39 L 3.46 L Hgb 9.7 L 9.8 L Hct 30.6 L 31.5 L MCV 90.3 91.0 MCH 28.6 28.3 MCHC 31.7 31.1 RDW 15.3 15.3 Plt Count 182 169 MPV 10.2 10.5 Immature Gran % (Auto) Neut % (Auto) Lymph % (Auto) Imperial % (Auto) Eos % (Auto) Baso % (Auto) Lymph # (Auto) [place] # (Auto) Eos # (Auto) Baso # (Auto) Abs Immat Gran (auto) Absolute Neuts (auto) Absolute Nucleated RBC 0.000 0.000 Nucleated RBC % (auto) 0.0 0.0 Smear Tech's Comments PT INR VBG pH VBG pCO2 VBG pO2 VBG HCO3 VBG O2 Saturation VBG Base Excess Sodium 143 Potassium 4.4 Chloride 110 H Carbon Dioxide 25 Anion Gap 12 BUN 22 H Creatinine 0.71 Estim Creat Clear Calc 51.4 Estimated GFR > 60 Random Glucose Fasting Glucose 94 Estimat Average Glucose Hemoglobin A1c % Lactic Acid Calcium 8.5 Total Bilirubin Direct Bilirubin AST ALT Alkaline Phosphatase Troponin I High Sens B-Natriuretic Peptide Total Protein Albumin TSH 0.72 COVID-19 (ROSY) COVID-19 Clin Com Influenza Type A (SONIA) Influenza Type B (SONIA) Influenza A & B Note Blood Type Antibody Screen 09/06/21 09/06/21 06:25 06:25 WBC RBC Hgb Hct MCV MCH MCHC RDW Plt Count MPV Immature Gran % (Auto) Neut % (Auto) Lymph % (Auto) Imperial % (Auto) Eos % (Auto) Baso % (Auto) Lymph # (Auto) [place] # (Auto) Eos # (Auto) Baso # (Auto) Abs Immat Gran (auto) Absolute Neuts (auto) Absolute Nucleated RBC Nucleated RBC % (auto) Smear Tech's Comments PT INR VBG pH VBG pCO2 VBG pO2 VBG HCO3 VBG O2 Saturation VBG Base Excess Sodium 148 H Potassium 3.4 D Chloride 114 H Carbon Dioxide 26 Anion Gap 11 L BUN 18 H Creatinine 0.67 Estim Creat Clear Calc 54.6 Estimated GFR > 60 Random Glucose Fasting Glucose 89 Estimat Average Glucose Hemoglobin A1c % Lactic Acid Calcium 8.3 L Total Bilirubin Direct Bilirubin AST ALT Alkaline Phosphatase Troponin I High Sens B-Natriuretic Peptide Total Protein Albumin TSH COVID-19 (ROSY) COVID-19 Clin Com Influenza Type A (SONIA) Influenza Type B (SONIA) Influenza A & B Note Blood Type A Negative Antibody Screen NEGATIVE Airway Mallampati Class: III TM Dist: <=3cm Neck ROM: Poor Loose/Missing/Broken Teeth: Yes Heart: [place] Lungs: coarse breath sounds b/l Assessment and Plan Assessment Anesthesia Assessment: Anesthesia Plan Discussed (with HCP ) and Chart Reviewed Final Anesthetic Review Family History of Problems with Anesthesia: No History of Problems with Anesthesia: No NPO: Yes ASA Class: IV and Emergency Final Preanesthetic Review: Meds/Allgs Chart Reviewed, Consent Obtained/Reviewed, Anes Risks/Benef Reviewed and DNR Form (If Appl.) Patient Risk: High Procedure Risk: Intermediate Anesthetic Plan Anesthetic Plan: GA Disposition: Inp. Admit - Standard Bed
[2021-09-07 15:19] LABS: Anion Gap 11 (12-20); Blood Urea Nitrogen 13 mg/dL (9-16); Calcium 8.3 mg/dL (8.4-10.2); Carbon Dioxide 24 mmol/L (22-29); Chloride 114 mmol/L (96-108); Creatinine Clr Calc Pharmacy 60.9; Estimated Glomerular Filt Rate > 60; Glucose Random 86 mg/dL (60-115); Potassium 3.9 mmol/L (3.3-5.1); Sodium 145 mmol/L (135-145)
--- NOTE | 2021-09-07 16:04 | MHC.SHP ---
Pre-Procedural Eval Section A Date of Service: 09/07/21 The patient is an INPATIENT: Yes Section B Chief Complaint: nstemi, asp pneumonia Allergies: Allergies Allergy/AdvReac Type Severity Reaction Status Date / Time No Known Allergies Allergy Verified 09/07/21 14:41 Plan I have reviewed the history and physical and performed a pertinent physical examination on my patient. No changes have occurred unless specified.
--- NOTE | 2021-09-07 16:14 | PM.CNGS ---
History of Present Illness Consult details Consult date: 09/07/21 Requesting physician: Sancho Larson Narrative: 76-year-old trans gender who presented initially with hypoxia since that time has been noted to be in junctional bradycardia intermittently with frequent pauses greater than 3 seconds despite stopping all rate limiting medications. She is essentially non communicative with me and all other history was obtained from the chart and from the patient's healthcare proxy. Review of Systems Review of Systems: Difficult to communicate with but essentially all negative Yes all other systems are reviewed and are negative [facility] Past Medical History Medical History COPD (chronic obstructive pulmonary disease) Hypothyroidism Schizophrenia Transgender Vascular dementia Social History Social History Household Members: Unknown / Unable to assess Housing: Residential Unable to assess alcohol history related to: Unable to respond Patient Tobacco Use Status: Former Tobacco user Tobacco use type: Cigarette service: No Current occupational status: retired [employer] Allergies Allergy/AdvReac Type Severity Reaction Status Date / Time No Known Allergies Allergy Verified 09/07/21 14:41 Active Medications: Current Medications Acetaminophen (Acetaminophen 325 Mg Tablet) 650 mg PO Q6H PRN PRN Reason: Pain, Mild (Pain Scale 1-3) Aspirin (Aspirin 81 Mg Tab.Chew) 81 mg PO DAILY [facility] Last Admin: 09/07/21 08:54 Dose: Not Given Documented by: Atorvastatin Calcium (Atorvastatin Calcium 80 Mg Tablet) 80 mg PO BEDTIME [facility] Last Admin: 09/06/21 19:55 Dose: 80 mg Documented by: Bisacodyl (Bisacodyl 10 Mg Supp.Rect) 10 mg SD DAILY PRN PRN Reason: Constipation Enoxaparin Sodium (Enoxaparin Sodium 40 Mg/0.4 Ml Syringe) 40 mg SUBCUT DAILY [facility] Last Admin: 09/07/21 08:54 Dose: Not Given Documented by: Finasteride (Finasteride 5 Mg Tablet) 5 mg PO DAILY [facility] Last Admin: 09/07/21 08:55 Dose: Not Given Documented by: Guaifenesin (Guaifenesin 100 Mg/5 Ml Liquid) 10 ml PO Q4H PRN PRN Reason: Cough Haloperidol (Haloperidol 0.5 Mg Tablet) 0.5 mg PO BID [facility] Last Admin: 09/07/21 08:55 Dose: Not Given Documented by: Ampicillin Sodium/Sulbactam (Sodium 1.5 gm/ Sodium Chloride) 100 mls @ 200 mls/hr IV Q6H [facility] Last Infusion: 09/07/21 14:32 Dose: Infused Documented by: Dextrose (D5w) 1,000 mls @ 75 mls/hr IVCONT .[id number] [facility] Last Admin: 09/07/21 08:45 Dose: 75 mls/hr Documented by: Lactated Ringer's (Lr) 1,000 mls @ 50 mls/hr IVCONT .Q20H [facility] Ampicillin Sodium/Sulbactam (Sodium 3 gm/ Sodium Chloride) 100 mls @ 200 mls/hr IV ONCE ONE Stop: 09/07/21 16:31 Lactulose (Lactulose 20 Gm/30 Ml Solution) 20 gm PO DAILY [facility] Last Admin: 09/07/21 08:55 Dose: Not Given Documented by: Levothyroxine Sodium (Levothyroxine Sodium 50 Mcg Tablet) 50 mcg PO DAILY@0630 [facility] Last Admin: 09/07/21 05:52 Dose: 50 mcg Documented by: Lorazepam (Lorazepam 0.5 Mg Tablet) 0.5 mg PO TID PRN PRN Reason: Anxiety Magnesium Hydroxide (Milk Of Magnesia 30 Ml Oral.Susp) 30 ml PO DAILY PRN PRN Reason: Constipation Morphine Sulfate (Morphine Sulfate Oral Charlee 10 Mg/5 Ml Solution) 5 mg PO Q6H [facility] Last Admin: 09/07/21 13:33 Dose: Not Given Documented by: Pharmacy Consult (Consult Rx Perform Med Rec) 1 each MISCELLANE ONCE PRN PRN Reason: Consult order Senna (Sennosides 8.6 Mg Tablet) 17.2 mg PO BID [facility] Last Admin: 09/07/21 08:55 Dose: Not Given Documented by: Tamsulosin HCl (Tamsulosin Hcl 0.4 Mg Capsule) 0.4 mg PO DAILY [facility] Last Admin: 09/07/21 08:55 Dose: Not Given Documented by: Ziprasidone (Ziprasidone 40 Mg Capsule) 40 mg PO DAILY [facility] Last Admin: 09/07/21 08:55 Dose: Not Given Documented by: Ziprasidone (Ziprasidone 40 Mg Capsule) 40 mg PO BEDTIME [facility] Last Admin: 09/06/21 19:55 Dose: 40 mg Documented by: Home Medications Medication Instructions Recorded Confirmed Last Taken Type acetaminophen 325 mg tablet 650 mg PO Q4H PRN 09/01/21 09/01/21 Unknown History acetaminophen 650 mg rectal 650 mg SD Q4H PRN 09/01/21 09/01/21 Unknown History suppository bisacodyl 10 mg rectal suppository 10 mg SD DAILY PRN 09/01/21 09/01/21 Unknown History finasteride 5 mg tablet 1 tab PO DAILY 09/01/21 09/01/21 08/31/21 History guaifenesin 100 mg/5 mL oral liquid 200 mg PO Q4H PRN 09/01/21 09/01/21 Unknown History haloperidol 0.5 mg tablet 1 tab PO BID 09/01/21 09/01/21 08/31/21 History lactulose 10 gram/15 mL oral 30 ml PO DAILY 09/01/21 09/01/21 08/31/21 History solution (Enulose) levothyroxine 50 mcg tablet 1 tab PO DAILY 09/01/21 09/01/21 08/31/21 History lorazepam 0.5 mg tablet 1 tab PO TID PRN 09/01/21 09/01/21 08/31/21 History magnesium hydroxide 400 mg/5 mL 30 ml PO DAILY PRN 09/01/21 09/01/21 Unknown History oral suspension (Milk of Magnesia) morphine concentrate 100 mg/5 mL 5 mg PO Q6H 09/01/21 09/01/21 08/31/21 History (20 mg/mL) oral solution sennosides 8.6 mg tablet (senna) 17.2 mg PO BID 09/01/21 09/01/21 08/31/21 History tamsulosin 0.4 mg capsule 1 cap PO DAILY 09/01/21 09/01/21 08/31/21 History Physical Exam Vital Signs: Vital Signs: Last Vital Signs Temp 97.4 F 09/07/21 14:37 Pulse 40 L 09/07/21 14:37 Resp 16 09/07/21 14:37 BP 100/55 L 09/07/21 14:37 Pulse Ox 98 09/07/21 14:37 BMI result Body Mass Index 18.8 General: No acute distress very frail-appearing and difficult to communicate with HEENT: Moist mucous membranes, normocephalic, pupils equal round and reactive to light. Neck: No thyromegaly, supple, no JVD Lymph: No cervical, supraclavicular, or other lymphadenopathy Chest: No chest wall abnormalities or deformities Heart: Regular rate and rhythm bradycardic Lungs: Clear to auscultation bilaterally Abdomen: Soft, nontender, normal bowel sounds Extremities: No edema, cyanosis, or clubbing. Full range of motion Neuro: Grossly intact, alert and oriented x3, and nonfocal Skin: Warm and dry no rashes Affect: difficult to assess and combative at times Results Labs Result diagrams: 09/06/21 06:25 09/07/21 14:58 Labs: Abnormal lab results 09/07/21 Range/Units 14:58 Chloride 114 H (96-108) mmol/L Anion Gap 11 L (12-20) Calcium 8.3 L (8.4-10.2) mg/dL BMP 09/07/21 14:58 Sodium 145 Potassium 3.9 Chloride 114 H Carbon Dioxide 24 BUN 13 Creatinine 0.60 Calcium 8.3 L All other labs normal. Imaging Chest x-ray: image reviewed EKG: report reviewed and image reviewed Assessment and Plan (1) Sick sinus syndrome: Status: Acute Plan 76 year old transgender with sick sinus syndrome and frequent pauses of greater than 3 seconds that appear least to be asymptomatic. Agree with indication for dual chamber permanent pacemaker placement and I discussed with her healthcare proxy the risks, benefits, and alternatives which she understood and agreed to proceed. She will likely need to be in a sling for at least the next 2 weeks after the operation. The dressing placed will also need to stay on until she sees me back in the office in 2 weeks afterwards. The leads will be tested again in the morning and if that looks good and the wound looks good will be cleared for discharge from my standpoint at least. I will plan on discussing with her healthcare proxy afterwards. Procedures Date of Service Date of Service: 09/07/21
--- NOTE | 2021-09-07 18:16 | P.OP_ITS ---
Operative Note Operative Note Date of Service: 09/07/21 Narrative: Preoperative diagnosis: Sick sinus syndrome Postoperative diagnosis: Same Operation: Placement of dual-chamber permanent pacemaker with fluoroscopic guidance Surgeon: Toña Hernandez MD Specimens: None EBL: 5 cc Operative findings: The pacemaker placed was a Medtronic serial number [id number]. The atrial lead was a Medtronic [id number]. The ventricular lead was a Medtronic serial number [id number]. Parameters in the right atrial lead sensing was 2.8 with impedance of 437 and a threshold of 0.5 volts at 0.4 milliseconds. In the ventricular lead threshold was 0.5 volts at 0.4 milliseconds with an impedance of 532 Ohms and sensing at 5.5 mV. Patient tolerated procedure well. Operation in detail: The patient was brought to the operating room, placed supine on the operating room table, anesthesia moderate of ices were placed, and the patient was gently sedated. A time-out was performed confirming the correct patient site and procedure. After injection of local anesthetic, a 3 cm incision was made in the left infraclavicular region and carried down to the pectoralis fascia with electrocautery. The patient was then placed in Trendelenburg and an 18 gauge needle was used to access subclavian vein on the 1st take. And a wire was placed into the right atrium under fluoroscopic guidance. A 2nd 18 gauge needle was then used to access the subclavian vein again on the 1st ache and a wire was placed under fluoroscopic guidance and parked in the right atrium. The patient was then taken out of Trendelenburg and a pocket was formed using blunt and electrocautery dissection. The 1st 6 Canadian sheath was then placed over wire and the wire and dilator were removed. The ventricular lead was then placed through the sheath and parked in the right atrium and the peel-away sheath was removed. After several attempts using a curved stylet we were eventually able to access the right ventricle and the tip of the lead was positioned at the right ventricular apex. unfortunately we tested this lead at multiple different positions within the right ventricle and the threshold never got to below 2.0. For this reason, this lead was left in place as it was after the endocardial screw was deployed at we moved onto the atrial lead. This portion took actually an extra our that would normally take. The 2nd 6 Canadian sheath was then placed over the 2nd wire and a wire dilator removed. The atrial lead was then placed and parked in the right atrium. AJ stylet was used to position this in the right atrial appendage. The endocardial screws deployed and the lead was tested with excellent parameters above. This lead was also secured with silk sutures to the pectoralis fascia. We then returned to the ventricular lead with no improvement in the threshold after giving it some time. The endocardial screw was then brought back in and the lead was brought back out of the right ventricle to try again to reposition it. We were able to cross the valve again without much difficulty and positioned the tip of the lead in a different position within the right ventricle and the endocardial screw was deployed again this time with excellent parameters listed above. This lead was also secured to the pectoralis fascia with silk sutures. Again, this added more than 1 hour to the operation.The pocket was then copiously irrigated with antibiotic solution. The leads were then placed in their appropriate receptacles and the pacemaker was tested again with excellent parameters. The generator and excess lead was then placed into the pocket. The wound was then closed with a deep running 3-0 Vicryl suture followed by running 3-0 Vicryl suture and Dermabond glue in the skin. Telfa and Tegaderm was placed as a dressing.The patient was then brought back to the Recovery r o in stable condition.
[2021-09-07] MEDS: Ziprasidone 40 MG CAPSULE PO (20:20)
[2021-09-07] MEDS: HaloperidoL 0.5 MG TABLET PO (20:20)
[2021-09-07] MEDS: Sennosides 8.6 MG TABLET 17.2 MG PO (20:20)
[2021-09-07] MEDS: Atorvastatin Calcium 80 MG TABLET PO (20:20)
[2021-09-07] MEDS: Morphine Sulfate Oral Sol 10 MG/5 ML SOLUTION 5 MG PO (22:24)
[2021-09-08 03:17] VITALS: BP 102/61; PULSE 59; RESP 18; TEMP 36.2; O2SAT 98
[2021-09-08] MEDS: Morphine Sulfate Oral Sol 10 MG/5 ML SOLUTION 5 MG PO ×3 (05:03→16:53)
[2021-09-08] MEDS: Ampicillin Sodium/Sulbactam Na 1.5 GM in 0.9 % Sodium Chloride 100 ML IV (05:03)
[2021-09-08] MEDS: Levothyroxine Sodium 50 MCG TABLET PO (05:04)
[2021-09-08 07:32] LABS: Blood Urea Nitrogen 10 mg/dL (9-16); Calcium 7.9 mg/dL (8.4-10.2); Creatinine Clr Calc Pharmacy 59.9; Estimated Glomerular Filt Rate > 60; Glucose Random 110 mg/dL (60-115)
[2021-09-08 07:39] VITALS: BP 103/60; PULSE 67; RESP 20; TEMP 36.6; O2SAT 100
[2021-09-08 07:43] LABS: Anion Gap 9 (12-20); Carbon Dioxide 26 mmol/L (22-29); Chloride 108 mmol/L (96-108); Potassium 2.9 mmol/L (3.3-5.1); Sodium 140 mmol/L (135-145)
[2021-09-08] MEDS: Tamsulosin HCL 0.4 MG CAPSULE PO (09:45)
[2021-09-08] MEDS: Sennosides 8.6 MG TABLET 17.2 MG PO (09:45)
[2021-09-08] MEDS: Ziprasidone 40 MG CAPSULE PO (09:45)
[2021-09-08] MEDS: Finasteride 5 MG TABLET PO (09:46)
[2021-09-08] MEDS: Lactulose 20 GM/30 ML SOLUTION PO (09:46)
[2021-09-08] MEDS: Potassium Chloride Packet 20 MEQ PACKET 40 MEQ PO ×2 (09:46→14:01)
[2021-09-08] MEDS: HaloperidoL 0.5 MG TABLET PO (09:46)
[2021-09-08] MEDS: Aspirin 81 MG TAB.CHEW PO (09:46)
[2021-09-08] MEDS: Enoxaparin Sodium 40 MG/0.4 ML SYRINGE SUBCUT (09:46)
--- NOTE | 2021-09-08 10:57 | HO.POSTANES ---
Post Anesthesia Evaluation Post Anesthesia Evaluation Vital Signs: Vital Signs Temp Pulse Resp BP Pulse Ox 09/08/21 07:39 97.9 F 67 20 103/60 100 09/08/21 03:17 97.1 F 59 18 102/61 98 Anesthesia: General Mental Status: Awake Pain Control: Satisfactory Nausea/Vomiting: None Hydration: Adequate Anesthesia-Related Issues: No Anes. Related Issues
[2021-09-08 11:10] VITALS: BP 99/60; PULSE 58; RESP 20; TEMP 36.2; O2SAT 100
--- NOTE | 2021-09-08 11:20 | MHC.CLN ---
F/U PACER PROCEDURE 09/07/21. PRIOR DIET RESUMED: PUREED WITH PUDDING THICK LIQUIDS. ADDED ENSURE PUDDING BID (340 KCAL, 8 G PROTEIN). STAGE I TO SOL SAMAYOA=10. NPO PRIOR TO PROCEDURE SO RECENT INTAKE LIMITED. CONTINUE TO FOLLOW DIET TOLERANCE AND INTAKE.
--- NOTE | 2021-09-08 12:01 | MHC.SL.DTX ---
Dysphagia Diet modifications: Last documented Solid diet consistencies: Pureed (NDD1) Last documented Liquid consistency: Pudding Thick Last documented Medication Administration: Changes made to current diet?: No: Pt is on most restrictive diet given high risk of aspiration. Liquid Consistency and Strategies: Liquid Intake Recommendation: Pudding Thick Compensatory Strategies for Safe Swallow: No Straws Chin Tuck with Liquids Double Swallow Liquids by Teaspoon Only Compensatory Strategies for Safe Swallow(b): Sitting Upright (90 deg) Chin Tuck Double Swallow No Straw Liquids from Spoon Small Bites and Sips Rate of Ingestion Change Oral Check Solid Food Consistency: Dietary Recommendations: NPO Additional Modifications to Solids: PT will require FULL ASSIST/SUPERVISION at all meals and Med administration. Pt is documented to benefit from DOUBLE SWALLOW and CHIN TUCK to assist w/clearing residual in oropharynx. Pt will require ORAL CHECK before presenting additional food. Please minimize distractions, incl. stopping Pt from talking while eating. Discontinue presenting food to Pt if evident signs of aspiration (coughing, wet/gurgly vocal quality). Oral Medication Intake: Crushed with Puree Strategies and Precautions to be Taken for Safe Swallow: Sitting Upright (90 deg) Chin Tuck Double Swallow No Straw Liquids from Spoon Small Bites and Sips Rate of Ingestion Change Oral Check Supervision While Eating and/Drinking: Total Supervision (1:1) Foods to Avoid: All puree, liquids should be at PUDDING THICK consistency. Avoid runny or wet purees (e.g. cream of wheat, amply added gravies or sauces) Swallowing Recommended Treatments: Compens. Strategy Educat. Level of Impact on: Daily activities: Severe Interpersonal interactions: Education: Severe Employment: Severe Community: Severe Prognosis for Improvement: Poor Recommendation for Speech: Comment: Pt was seen @ [facility] in March 2021 for MBSS. That study evidenced severe oralpharyngeal dysphagia, w/carissa aspiration documented on nectar thick liquid w/no evidence of protective cough. On puree consistencies there was no aspiration, however swallow evidenced a maladaptive oral phase (tongue pumping, premature anterior escape of bolus, oral residue after swallow) and impaired pharyngeal phase (Delayed swallow trigger, reduce laryngeal transit/elevation, residual in pharynx after swallow). Pt was deemed at high risk for aspiration, w/recommendation that alternate feeding method be considered, w/ PO puree solids, pudding thick liquids (e.g. no liquids) - w/concern re: lack of hydration on this regimen, ongoing risk of aspiration. BSE today is consistent w/previous MBSS findings: Highly maladaptive oral phase, significant delay of swallow w/reduced elevation on pudding thick liquids and puree. Additionally on study Pt neglected bolus after transit to pharynx, began speaking and needed repeated direct cuing to swallow. Due to severe oralpharyngeal dysphagia and that Pt has advanced dementia and becomes distracted easily while eating, recommend NPO. Recommend Medical team consider/investigate alternative feeding method for Pt, pending Guardian approval/quality of life considerations. These recommendation were discussed directly w/ MD and Nursing at time of evaluation, w/peg driver notified by secure text. ARTERIAL EMBALMER will follow re: determination of candidacy for Alternative Feeding, PO trials w/ARTERIAL EMBALMER only. Pt should be provided w/regular oral care several times daily while Inpt/NPO. Frequency/Duration: Date Range for Service Req: Timeline to reassess: Additional Comments: Pt's HCP/Guardian declined alternative feeding method recommended for Pt. due to documented aspiration on MBSS completed 04/10, and evident aspiration risk due to moderate-severe oralpharyngeal dysphagia. HCP is aware and accepts high aspiration risk w/ continuation of PO as primary means of receiving nutrition. Treatment: (09/08)Pt seen for repeat trial of liquid/food consistencies. PT is now s/p pacemaker placement following repeat episodes of brachycardia. Pt was alert and sitting upright in bed, however presented w/aphonia while attempting to mouth words/communicate. As session progressed, evident voicing on cough was noted, and Pt eventually produced voice while speaking, however speech was unintelligible jargon. Pt was episodically, briefly labile during session as well. Pt took 1/2 tsp presentation of pudding thick liquid, was able to strip spoon and contain consistency well, then produced highly disorganized tongue pumping to propel bolus, did not contain bolus anteriorly before swallow, swallow produced w/mild delay, w/reduced transit of larynx. On one presentation, Pt produced a productive cough a minute or two after swallow, however unclear if cough was in response to an aspiration event. Trials were discontinued after coughing event. Assessment: Dragline Mechanic Clinican/Clinical Fellow: No Supervisory Statement: I have reviewed and agree with the student/clinical fellow's documentation: N/A Speech Language Pathologist: Sagrario Palacio M.A., CCC-ARTERIAL EMBALMER
--- NOTE | 2021-09-08 13:47 | P.PNIM_ITS ---
Subjective Subjective Date of Service: 09/08/21 Interval History: the patient was seen and evaluated this morning Laying in bed, alert and smiling but not verbal ICD in place, no surrounding erythema No reported other overnight events. Review of Systems Unable to provide any meaningful answers but denies any complaints like chest pain, difficulty breathing or change in bowel habit among others Physical Exam Vital Signs: Vital Signs: Last Vital Signs Temp 97.1 F 09/08/21 11:10 Pulse 58 09/08/21 11:10 Resp 20 09/08/21 11:10 BP 99/60 09/08/21 11:10 Pulse Ox 100 09/08/21 11:10 BMI result Body Mass Index 18.8 Const: Other: Constitutional : Alert, interactive, not in distress Neck : Normal inspection, Supple Cardiovascular : RRR, no JVP, no lower extremity edema, ICD in place with no surrounding erythema or bleeding. Respiratory : fair bilateral air entry, no crackles, wheezes or rhonchi Gastrointestinal: soft, lax, Normal bowel sounds, Non tender Skin : Warm, Dry Neurological : Alert, nonverbal to check orientation, No focal deficit identified Objective Data Active Medications Acetaminophen (Acetaminophen 325 Mg Tablet) 650 mg PO Q6H PRN PRN Reason: Pain, Mild (Pain Scale 1-3) Acetaminophen (Acetaminophen 325 Mg Tablet) 650 mg PO ONCE PRN PRN Reason: Pain, Mild (Pain Scale 1-3) Aspirin (Aspirin 81 Mg Tab.Chew) 81 mg PO DAILY [facility] Last Admin: 09/08/21 09:46 Dose: 81 mg Documented by: ALMA Atorvastatin Calcium (Atorvastatin Calcium 80 Mg Tablet) 80 mg PO BEDTIME [facility] Last Admin: 09/07/21 20:20 Dose: 80 mg Documented by: NATIVIDAD Bisacodyl (Bisacodyl 10 Mg Supp.Rect) 10 mg PA DAILY PRN PRN Reason: Constipation Enoxaparin Sodium (Enoxaparin Sodium 40 Mg/0.4 Ml Syringe) 40 mg SUBCUT DAILY [facility] Last Admin: 09/08/21 09:46 Dose: 40 mg Documented by: ALMA Fentanyl (Fentanyl Citrate/Pf 100 Mcg/2 Ml Vial) 25 mcg IVPUSH Q5M PRN; Protoc ol PRN Reason: Pain, Moderate (Pain Scale 4-6 Finasteride (Finasteride 5 Mg Tablet) 5 mg PO DAILY [facility] Last Admin: 09/08/21 09:46 Dose: 5 mg Documented by: ALMA Guaifenesin (Guaifenesin 100 Mg/5 Ml Liquid) 10 ml PO Q4H PRN PRN Reason: Cough Haloperidol (Haloperidol 0.5 Mg Tablet) 0.5 mg PO BID [facility] Last Admin: 09/08/21 09:46 Dose: 0.5 mg Documented by: ALMA Dextrose (D5w) 1,000 mls @ 75 mls/hr IVCONT .[id number] [facility] Last Admin: 09/08/21 11:57 Dose: Not Given Documented by: ALMA Non-Admin Reason: Medication Discontinued Lactated Ringer's (Lr) 1,000 mls @ 50 mls/hr IVCONT .Q20H [facility] Last Admin: 09/08/21 12:28 Dose: Not Given Documented by: ALMA Non-Admin Reason: Medication Discontinued Lactulose (Lactulose 20 Gm/30 Ml Solution) 20 gm PO DAILY [facility] Last Admin: 09/08/21 09:46 Dose: 20 gm Documented by: ALMA Levothyroxine Sodium (Levothyroxine Sodium 50 Mcg Tablet) 50 mcg PO DAILY@0630 [facility] Last Admin: 09/08/21 05:04 Dose: 50 mcg Documented by: GERONIMO Lorazepam (Lorazepam 0.5 Mg Tablet) 0.5 mg PO TID PRN PRN Reason: Anxiety Magnesium Hydroxide (Milk Of Magnesia 30 Ml Oral.Susp) 30 ml PO DAILY PRN PRN Reason: Constipation Morphine Sulfate (Morphine Sulfate Oral Charlee 10 Mg/5 Ml Solution) 5 mg PO Q6H [facility] Last Admin: 09/08/21 12:01 Dose: 5 mg Documented by: ALMA Ondansetron HCl (Ondansetron Hcl 4 Mg/2 Ml Vial) 4 mg IVPUSH ONCE PRN PRN Reason: Nausea and Vomiting Pharmacy Consult (Consult Rx Perform Med Rec) 1 each MISCELLANE ONCE PRN PRN Reason: Consult order Senna (Sennosides 8.6 Mg Tablet) 17.2 mg PO BID [facility] Last Admin: 09/08/21 09:45 Dose: 17.2 mg Documented by: ALMA Tamsulosin HCl (Tamsulosin Hcl 0.4 Mg Capsule) 0.4 mg PO DAILY [facility] Last Admin: 09/08/21 09:45 Dose: 0.4 mg Documented by: SHIRAZ-MCLEP Ziprasidone (Ziprasidone 40 Mg Capsule) 40 mg PO DAILY [facility] Last Admin: 09/08/21 09:45 Dose: 40 mg Documented by: SHIRAZ-MCLEP Ziprasidone (Ziprasidone 40 Mg Capsule) 40 mg PO BEDTIME [facility] Last Admin: 09/07/21 20:20 Dose: 40 mg Documented by: NATIVIDAD Labs CBC & Chem 7: 09/06/21 06:25 09/08/21 06:18 Labs: Laboratory Results - last 24 hr 09/07/21 09/08/21 14:58 06:18 Anion Gap 11 L 9 L Estim Creat Clear Calc 60.9 59.9 Estimated GFR > 60 > 60 Random Glucose 86 110 Calcium 8.3 L 7.9 L Assessment and Plan (1) Sick sinus syndrome: Status: Acute (2) Aspiration pneumonia: Status: Acute Plan 76 Male to Female presented with hypoxia and nstemi ?Acute hypoxic respiratory failure secondary to aspiration pneumonia ?no evidence of sepsis continue ?IV unasyn day 7, to continue while inpatient SERVER ENGINEER appreciated, patient likely to aspirate on all consistencies, d/w HCP, would not want NPO or Gtube, so will continue pureed with pudding thick accepting risks for ongoing aspiration events for now. ?NSTEMI type II due to above echo with no WMA cardio following Sick sinus syndrome cardio appreciated, decreased geodon with plan for pacer placement pacemaker placed by thoracic surgery, pending team evaluation of the ICD leads for discharge planning COPD stable hypothyroid synthroid (if tolerating po) schizophrenia and vascular dementia haldol, ziprasidone BPH flomax if tolerating po, monitor for retention moderate protein calorie malnutrition due to dysphagia dvt prophylaxis - lovenox molst - DNR/DNI, okay for niv reason for continued hospitalization: post pacemaker placement pending thoracic surgery clearance to be discharged. Quality Stroke Does the patient have a stroke diagnosis?: No VTE Prior VTE?: No VTE Risk Level:: Medical - moderate - high VTE Device Contraindication: Treatment Not Indicated VTE Drug Contraindication: N/A - Med Ordered
[2021-09-08 13:48] LABS: COVID-19 Test Negative (Negative)
--- NOTE | 2021-09-08 14:10 | P.DS_ITS ---
DS: Providers Provider Date of Service: 09/08/21 Date of admission: 09/01/21 09:31 Primary care physician: Unknown Physician Consults: 09/01/21 09:32 Consult to Cardiology Routine Consulting Provider: Hitesh Osman Reason for consultation: nstemi 09/05/21 11:16 Consult to Thoracic Surgery Routine Consulting Provider: Toña Hernandez Reason for consultation: SSS, ?pacer DS: Diagnosis Discharge Diagnosis (1) Sick sinus syndrome: Status: Acute (2) Aspiration pneumonia: Status: Acute (3) Elevated troponin: Status: Acute DS: Summary Hospital Course Hospital Course: from initial hpi: Chief Complaint: Hypoxia ?76-year-old male to female sent in from [facility] for acute hypoxic respiratory failure.? Patient herself is minimally verbal and is a poor historian.? History obtained from facility.? Patient was noted to have increased cough on day of admission she has a p.r.n. O2 order, was up to 6 L and desatting to low 80s.? In ED patient required high-flow oxygen.? CT chest consistent with aspiration pneumonia.? Patient was given Zosyn.? EKG showed? dynamic anterior lead ST depression with T-wave inversion, and troponin was 733.? Patient denies any chest pain. hospital course: patient was admitted for acute hypoxic respiratory failure secondary to aspiration pneumonia. She had no evidence of sepsis, she was treated with IV Unasyn and weaned off oxygen. She was seen by speech therapy who found that patient was aspirated all consistencies. Discussion was had with patient's healthcare proxy and decision made to tolerate risk of aspiration and order to maximize quality of life, at the same time will try and mitigate that risk as much as possible but continuing with pureed solids and pudding thick liquids. Course was complicated by NSTEMI, she was seen by Cardiology who felt this was likely type 2 due to hypoxia. Echo showed no wall motion abnormalities. The hospitalCourse was further complicated by Peterson arrhythmia both sinus bradycardia and junctional rhythm with episodes of pauses. Cardiology evaluated the patient and suggested that Theoretically Geodon could be causing bradycardia therefore dose was decreased. evaluated by thoracic surgery who placed a permanent pacemaker that was re-evaluated the day of discharge. Her COPD remains stable, for hypothyroidism she was continued on Synthroid, TSH was within normal limits. For her schizophrenia vascular dementia she was continued on Haldol and Geodon was decreased dose. For BPH Flomax was continued. There was previously mention of diabetes, however this was either Wilmer yes or from distant past, patient is not on medications and A1c was 5.2. Patient has moderate protein calorie malnutrition due to dysphagia. She is now medically stable will be discharged back to half-way facility. To follow-up with Dr. David Seo office in 2 weeks To follow up with Cardiology in 2-3 weeks decrease the dose of Geodon Time Spent with Patient Time attestation: Total time spent providing and/or coordinating discharge services: Discharge coordination time: Greater than 30 minutes Quality: Safe Use of Opioids Does Pt have an Active Cancer Diagnosis on the Problem List?: No Quality: Stroke Does the patient have a stroke diagnosis?: No Physical Exam Vital Signs: Vital Signs: Last Vital Signs Temp 97.1 F 09/08/21 11:10 Pulse 58 09/08/21 11:10 Resp 20 09/08/21 11:10 BP 99/60 09/08/21 11:10 Pulse Ox 100 09/08/21 11:10 BMI result Body Mass Index 18.8 Const: Other: Constitutional : Alert, interactive, not in distress Neck : Normal inspection, Supple Cardiovascular : RRR, no JVP, no lower extremity edema, ICD in place with no surrounding erythema or bleeding. Respiratory : fair bilateral air entry, no crackles, wheezes or rhonchi Gastrointestinal: soft, lax, Normal bowel sounds, Non tender Skin : Warm, Dry Neurological : Alert, nonverbal to check orientation, No focal deficit identified DS: Data Data Completed and Pending Labs on day of discharge: Laboratory Results - last 24 hr 09/07/21 09/08/21 09/08/21 14:58 06:18 13:21 Sodium 145 140 Potassium 3.9 2.9 L D Chloride 114 H 108 Carbon Dioxide 24 26 Anion Gap 11 L 9 L BUN 13 10 Creatinine 0.60 0.61 Estim Creat Clear Calc 60.9 59.9 Estimated GFR > 60 > 60 Random Glucose 86 110 Calcium 8.3 L 7.9 L COVID-19 (ROSY) Negative COVID-19 Clin Com See Note Discharge Plan Discharge Patient Disposition: Xfer SNF Discharge Diagnosis: aspiration pneumonia Sick sinus syndrome Referrals: Physician,Unknown J [Primary Care Provider] - 1 Week Discharge Medications: New ziprasidone HCl 40 mg Capsule 40 mg PO DAILY Qty: 0 0RF ziprasidone HCl 40 mg Capsule 40 mg PO BEDTIME Qty: 0 0RF amoxicillin-pot clavulanate 500-125 mg tablet 1 tab PO BID Qty: 10 0RF Continued haloperidol 0.5 mg tablet 1 tab PO BID 0RF morphine concentrate 100 mg/5 mL (20 mg/mL) solution 5 mg PO Q6H 0RF lorazepam 0.5 mg tablet 1 tab PO TID PRN (Reason: Anxiety) 0RF tamsulosin 0.4 mg capsule 1 cap PO DAILY 0RF levothyroxine 50 mcg tablet 1 tab PO DAILY 0RF finasteride 5 mg tablet 1 tab PO DAILY 0RF lactulose [Enulose] 10 gram/15 mL solution 30 ml PO DAILY 0RF sennosides [senna] 8.6 mg Tablet 17.2 mg PO BID 0RF acetaminophen 325 mg Tablet 650 mg PO Q4H PRN (Reason: Fever) 0RF acetaminophen 650 mg Suppository 650 mg MO Q4H PRN (Reason: Fever) 0RF guaifenesin 100 mg/5 mL Liquid 200 mg PO Q4H PRN (Reason: Cough) 0RF magnesium hydroxide [Milk of Magnesia] 400 mg/5 mL Suspension 30 ml PO DAILY PRN (Reason: Constipation) 0RF bisacodyl 10 mg Suppository 10 mg MO DAILY PRN (Reason: Constipation) 0RF Discontinued ziprasidone HCl 80 mg capsule 1 cap PO BEDTIME 0RF ziprasidone HCl 60 mg capsule 1 cap PO DAILY 0RF Discharge Orders: Discharge Order (Routine); Ordered 09/08/21 Ordered By: Swetha Unger Diet: other Activity on Discharge: As tolerated Stand Alone Forms: Patient Portal Discharge page Care Plan Goals: maximize quality of life Health Concerns: aspiration, sick sinus syndrome Plan of Treatment: plan to tolerate risk of aspiration to improve quality of life, but will try to mitigate risk as much as possible - diet should be pureed solids with pudding thick liquids, finish 5 more days of augmentin, decreased geodon as prescribed Assessment: follow up with Dr Hernandez at the [place] office in 2 weeks follow up with cardiology in 2-3 weeks
--- NOTE | 2021-09-08 14:40 | MHC.CM.PN ---
PT MEDICALLY CLEARED TO RETURN TO [facility] FOR LTC, THIS CM SPOKE W/HCP SUREKHA AT [phone] AND SUREKHA IS AGREEABLE TO PLAN, ACTION FOR BLS TRANSPORT AT 5PM.
[2021-09-08 15:09] VITALS: PULSE 66; RESP 20; TEMP 36.7; O2SAT 96
== END 2021-09-08 18:09 | disposition skilled nursing facility (03) | DRG 981 ==
LOC: HO.ED 02:43 → HO.EDOVER 09:36 → HO.IMC 16:15
PROVIDERS: Internal Medicine Cardiovascular Disease; Surgery; Admitting Provider Internal Medicine; Emergency Provider Emergency Medicine; Visit Provider Student in an Organized Health Care Education/Training Program
PROC: 0JH606Z Insertion of Pacemaker, Dual Chamber into Chest Subcutaneous Tissue and Fascia, Open Approach (ICD-10-PCS; principal; 2021-09-07 15:20)
DX: J69.0 Pneumonitis due to inhalation of food and vomit (principal); J96.01 Acute respiratory failure with hypoxia; I21.A1 Myocardial infarction type 2; E44.0 Moderate protein-calorie malnutrition; Z68.1 Body mass index [BMI] 19.9 or less, adult; Z66 Do not resuscitate; E03.9 Hypothyroidism, unspecified; E11.9 Type 2 diabetes mellitus without complications; J44.9 Chronic obstructive pulmonary disease, unspecified; F01.50 Vascular dementia, unspecified severity, without behavioral disturbance, psychotic disturbance, mood disturbance, and anxiety; I49.5 Sick sinus syndrome; N40.0 Benign prostatic hyperplasia without lower urinary tract symptoms; R13.10 Dysphagia, unspecified; F20.9 Schizophrenia, unspecified; F64.0 Transsexualism; Z20.822 Contact with and (suspected) exposure to COVID-19; Z87.891 Personal history of nicotine dependence; Z79.890 Hormone replacement therapy; Z79.899 Other long term (current) drug therapy
CPT/HCPCS: 36415; 71045; 71260; 74177; 80048; 80076; 82803; 83036; 83605; 83880; 84443; 84484; 85025; 85027; 85610; 86850; 86900; 86901; 87040; 87502; 87635; 92526; 92610; 93005; 93306; 96361; 96374; 99285; C1785; C1892; C1898; J0295; J1650; J2543; J3010; J3370

== ENCOUNTER → 2021-09-23 09:57 | Outpatient (BNVA) | payer MEDICARE, MEDICAID, SELFPAY | PROVIDERS: Visit Provider Surgery | DX: Z95.0 Presence of cardiac pacemaker (principal) | CPT/HCPCS: 99212 ==

== ENCOUNTER → 2021-11-28 15:08 | Outpatient (BNVA) | payer MEDICARE, MEDICAID, SELFPAY | PROVIDERS: Visit Provider Internal Medicine Cardiovascular Disease | DX: Z45.018 Encounter for adjustment and management of other part of cardiac pacemaker (principal); I25.2 Old myocardial infarction | CPT/HCPCS: 99212 ==